=== PATIENT | male | born 1965 | race Caucasian/White ===

== ENCOUNTER 2023-09-20 01:32 | Emergency (ER) | payer MEDICAID, SELFPAY ==
--- NOTE | ~2023-09-20 | US_ITS ---
EXAMINATION: US VENOUS ULTRASOUND WITH DOPPLER LOWER EXTREMITY, LEFT CLINICAL INFORMATION: Leg pain COMPARISON: None available. TECHNIQUE: Ultrasound of the deep veins is performed from the hip to the calf with compression sonography and color and pulse Doppler assessment. Spectral analysis with color-flow imaging is performed. FINDINGS: There is normal venous compression and respiratory variation and augmented flow. The visualized common femoral vein, superficial femoral vein, profunda femoral vein, popliteal vein, and the trifurcation region shows no evidence of deep venous thrombosis. There is no significant popliteal fossa cyst. If the patient's symptoms persist, followup ultrasound in 5 days 7 days might be of value to exclude proximal propagation from a non-visualized calf vein. US/US venous duplex LE LT IMPRESSION: No DVT demonstrated in the left lower extremity. Note is made of prominent nodes of uncertain etiology.
--- NOTE | ~2023-09-20 | XR_ITS ---
Indication: Pain EXAMINATION: Left knee, left ankle. 3 views of the left knee demonstrate soft tissue swelling. Periosteal changes along the distal tibia and fibula are noted No acute fracture or dislocation is seen. Degenerative changes are noted. 2 images of the left knee do not demonstrate acute fracture or dislocation. Surgical clips posterior to the distal femur. No significant effusion is seen. Some degenerative changes are noted. XR/XR ankle LT min 3V IMPRESSION: No acute bony finding the left ankle or left knee. Note is made of some periosteal changes along the visualized distal tibia and fibula of uncertain etiology. Correlation recommended clinically. This could reflect venous stasis. Underlying bony infection chronic could not be excluded
--- NOTE | ~2023-09-20 | XR_ITS ---
Indication: Pain EXAMINATION: Left knee, left ankle. 3 views of the left knee demonstrate soft tissue swelling. Periosteal changes along the distal tibia and fibula are noted No acute fracture or dislocation is seen. Degenerative changes are noted. 2 images of the left knee do not demonstrate acute fracture or dislocation. Surgical clips posterior to the distal femur. No significant effusion is seen. Some degenerative changes are noted. XR/XR knee LT 2V IMPRESSION: No acute bony finding the left ankle or left knee. Note is made of some periosteal changes along the visualized distal tibia and fibula of uncertain etiology. Correlation recommended clinically. This could reflect venous stasis. Underlying bony infection chronic could not be excluded
[2023-09-20 01:36] VITALS: BP 160/87; BP 180/90; PULSE 67; PULSE 78; RESP 20; TEMP 36.7; O2SAT 95; BMI 30.3
[2023-09-20 01:48] VITALS: BP 160/87; PULSE 68; RESP 18; TEMP 36.7; O2SAT 93
[2023-09-20 02:32] LABS: MANUAL DIFF FLAG NO
[2023-09-20 02:34] LABS: Basophils Absolute Auto 0.1 X10*3/uL (0.0-0.2); Basophils Percent Auto 0.7 % (0-2); Eosinophils Absolute Auto 0.1 X10*3/uL (0.0-0.4); Eosinophils Percent Auto 0.8 % (0-4); Hematocrit 41.4 % (42.0-52.0); Hemoglobin 13.8 g/dl (14.0-18.0); Imm Gran Abs Auto 0.03 X10*3/uL (0.00-0.03); Imm Gran Pct Auto 0.3 % (0.0-0.4); Lymphocytes Percent Auto 19.7 % (20-40); Mean Corpuscular HGB Conc 33.3 g/dl (31.0-36.0); Mean Corpuscular Hemoglobin 30.5 pg (27.0-33.0); Mean Corpuscular Volume 91.6 fL (80.0-98.0); Mean Platelet Volume 9.5 fL (9.4-12.4); Monocytes Absolute Auto 1.1 X10*3/uL (0.1-1.2); Monocytes Percent Auto 10.3 % (2-11); Neutrophils Absolute Auto 6.9 x10*3/uL (2.0-8.3); Neutrophils Percent Auto 68.2 % (45-73); Platelet Count 364 X10*3/uL (160-400); Red Blood Count 4.52 X10*6/uL (4.60-5.80); Red Cell Distribution Width 13.9 % (11.0-16.0); White Blood Count 10.2 X10*3/uL (4.8-10.8)
[2023-09-20 02:49] LABS: Alanine Aminotransferase 12 U/L (0-40); Albumin Level 3.5 g/dL (3.5-5.0); Alkaline Phosphatase 99 U/L (39-117); Anion Gap 14 (12-20); Aspartate Amino Transferase 18 U/L (5-37); Bilirubin Total 0.3 mg/dL (0.0-1.0); Blood Urea Nitrogen 17 mg/dL (9-16); Calcium 9.5 mg/dL (8.4-10.2); Carbon Dioxide 25 mmol/L (22-29); Chloride 105 mmol/L (96-108); Creatinine Clr Calc Pharmacy 111.9; Estimated Glomerular Filt Rate > 60; Glucose Random 88 mg/dL (60-115); Potassium 4.1 mmol/L (3.3-5.1); Sodium 140 mmol/L (135-145); Total Protein 8.4 g/dL (6.5-8.0)
[2023-09-20 04:00] VITALS: BP 165/95; PULSE 64; RESP 20; TEMP 36.8; O2SAT 96
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
[2023-09-20 05:38] LABS: Amphetamine Screen Urine Not Detected (Not Detect); Barbiturates, Urine Not Detected (Not Detect); Benzodiazepines Screen Urine Not Detected (Not Detect); Buprenorphine Scr Not Detected (Not Detect); Cannabinoid Screen Urine Not Detected (Not Detect); Cocaine Screen Urine POSITIVE (Not Detect); Fentanyl, urine POSITIVE (Not Detect); Methadone Screen, Urine Positive (Not Detect); Opiate Screen Urine Not Detected (Not Detect); Oxycodone Screen Urine Not Detected (Not Detect); Phencyclidine Screen Urine Not Detected (Not Detect)
--- NOTE | 2023-09-20 05:47 | PC.NURSE ---
wound cleansed and bandaged with non-adherent telfa, abd pad, and kerlix.
[2023-09-20 06:00] VITALS: BP 166/88; PULSE 66; RESP 12; TEMP 36.3; O2SAT 95
--- NOTE | 2023-09-20 08:30 | HE.PHANOTE ---
METHADONE Dose: 90 mg, last dosed on 09/19/2023 @0842 per Chantal WARRNE at [facility].
[2023-09-20] MEDS: methADONE HCl 20 MG/2 ML ORAL.CONC 90 MG PO (08:37)
[2023-09-20 08:42] VITALS: BP 168/92; PULSE 69; RESP 22; TEMP 36.7; O2SAT 95
== END 2023-09-20 08:44 | disposition home or self-care (01) ==
PROVIDERS: Emergency Provider Emergency Medicine Emergency Medical Services
DX: L08.89 Other specified local infections of the skin and subcutaneous tissue (principal); M25.562 Pain in left knee; R60.0 Localized edema; M25.572 Pain in left ankle and joints of left foot; Z79.899 Other long term (current) drug therapy
CPT/HCPCS: 36415; 73560; 73610; 80053; 80307; 85025; 85610; 93971; 96365; 96375; 99284; J0690

== ENCOUNTER 2024-06-04 16:19 | Inpatient (IN) | payer MEDICAID, SELFPAY ==
[2024-06-04] VITALS (7 sets, daily range): BP systolic 136–151; BP diastolic 70–95; PULSE 59–97; RESP 16–19; TEMP 36.4–36.8; O2SAT 92–99; BMI 36.9
--- NOTE | ~2024-06-04 | XR_ITS ---
CLINICAL HISTORY: wound 2 view left tibia-fibula Comparison: None Findings There is periosteal new bone formation within the diaphysis of the fibula extending over at least 16 cm of the length of the fibula. This may be subacute or chronic. Cortical thickening and irregularity of a portion of the anterior aspect of the tibia. No brigette bony destruction. No acute fracture. No dislocation. No joint effusion. No significant arthritic change. No radiopaque foreign body. There is edema of the soft tissues. Possible focus of soft tissue ulceration within the anterior aspect of the lower leg. IMPRESSION: Findings suggest osteomyelitis of the diaphysis of the tibia and fibula. This could be further evaluated with MRI. This document has been electronically signed by: Priya Gonzales MD on 06/04/2024 18:46:38
--- NOTE | ~2024-06-04 | US_ITS ---
CLINICAL HISTORY: calf pain Venous duplex ultrasound left lower extremity Comparison: US/SR - US VENOUS DUPLEX LE LT - 09/20/23 05:22 EDT Findings: The visualized deep veins are fully compressible with normal Doppler color flow and spectral tracings. No popliteal cyst. There is a 4.5 x 2.9 x 1.6 cm normal morphology lymph node containing a fatty hilum within the left groin with likely increased since the prior study. IMPRESSION: 1. Negative for left lower extremity deep vein thrombosis. 2. Enlarged left groin lymph node with apparent interval increase in size. This may be inflammatory but neoplasm is not excluded. This document has been electronically signed by: Priya Gonzales MD on 06/04/2024 19:32:59
--- NOTE | ~2024-06-04 | MR_ITS ---
EXAMINATION: MR TIBIA AND FIBULA WITHOUT THEN WITH IV CONTRAST LEFT HISTORY: ?osteomyelitis. TECHNIQUE: Sagittal and coronal T1 and STIR, and axial T1 and fat-suppressed T2-weighted MR images of the left calf were obtained. Subsequently, axial fat-suppressed T1-weighted images were obtained before and after the intravenous administration of 10 mL Gadavist. COMPARISON: Correlation is made with plain films of the left tibia and fibula dated 06/04/2024. FINDINGS: There is diffuse subcutaneous edema at the anterior and lateral aspects of the calf, compatible with cellulitis. There is diffuse fatty muscle atrophy. Bone marrow signal intensity is normal. There is cortical thickening of the diaphysis of the tibia. There is no osseous destruction. There is no fluid collection. MR/MR Tibia LT wo/w Contrast IMPRESSION: Findings consistent with cellulitis. No evidence of osteomyelitis. Electronically signed by: Stanley Desir MD 06/05/2024 01:13 PM EDT
--- NOTE | ~2024-06-04 | CT_ITS ---
CLINICAL HISTORY: SOB, hx of DVT CT angiography chest with contrast. 3D Postprocessing. Comparison: None Findings: The heart size is normal. RV/LV ratio is normal. Unremarkable thoracic aorta and great vessels. No aneurysm. No pulmonary artery filling defects. The visualized thyroid and mediastinum are unremarkable. There are mild emphysematous changes. No consolidation or pleural effusion. The upper abdomen is unremarkable. No acute fractures. IMPRESSION: There is no pulmonary artery embolism. This document has been electronically signed by: Priya Gonzales MD on 06/04/2024 18:52:17
--- NOTE | ~2024-06-04 | MR_ITS ---
EXAMINATION: MR PELVIS WITHOUT AND WITH CONTRAST CLINICAL INFORMATION: Enlarged lymph nodes. Concerning neoplasm. COMPARISON: None available. TECHNIQUE: Multiplanar, multisequence MRI pelvis/left hip without and following the IV contrast. Total of 10 cc gadolinium based (Gadavist) without reported immediate complications. FINDINGS: Patient's motion. Abundant stool within the rectosigmoid colon. No ascites in the lower pelvic peritoneal cavity. The prostate gland is not enlarged and measures no more than 3 cm in the craniocaudal dimension. Fluid-filled bladder. Mildly prominent, less than 12 mm lymph nodes in the left iliac and left greater than right inguinal regions. The vessels are patent. No bone marrow signal abnormality in the bony pelvis or the coxofemoral joints. No enhancing lesion within the coxofemoral joints or the bony pelvis. Bone marrow inhomogeneity with predominantly fat signal characteristic pattern. MR/MR pelvis wo/w con IMPRESSION: Nonspecific lymphadenopathy, left greater than right inguinal region and left perinephric iliac. Abundant stool, rectosigmoid colon. No enhancing mass. Electronically signed by: Stiven Candelaria MD 06/06/2024 02:18 PM EDT
[2024-06-04 17:32] LABS: MANUAL DIFF FLAG NO
[2024-06-04 17:33] LABS: Basophils Percent Auto 0.4 % (0-2); Eosinophils Percent Auto 1.1 % (0-4); Hematocrit 44.6 % (42.0-52.0); Imm Gran Pct Auto 0.3 % (0.0-0.4); Lymphocytes Percent Auto 15.5 % (20-40); Mean Corpuscular HGB Conc 33.6 g/dl (31.0-36.0); Mean Corpuscular Hemoglobin 31.1 pg (27.0-33.0); Mean Corpuscular Volume 92.3 fL (80.0-98.0); Mean Platelet Volume 9.3 fL (9.4-12.4); Monocytes Percent Auto 8.4 % (2-11); Neutrophils Percent Auto 74.3 % (45-73); Platelet Count 351 X10*3/uL (160-400); Red Blood Count 4.83 X10*6/uL (4.60-5.80); Red Cell Distribution Width 14.4 % (11.0-16.0); White Blood Count 9.2 X10*3/uL (4.8-10.8)
[2024-06-04 17:34] LABS: Eosinophils Absolute Auto 0.1 X10*3/uL (0.0-0.4); Imm Gran Abs Auto 0.03 X10*3/uL (0.00-0.03); Lymphocytes Absolute Auto 1.4 X10*3/uL (1.2-4.9); Monocytes Absolute Auto 0.8 X10*3/uL (0.1-1.2); Neutrophils Absolute Auto 6.8 x10*3/uL (2.0-8.3)
[2024-06-04 17:50] LABS: Ethanol 35 mg/dL
[2024-06-04 17:52] LABS: Alanine Aminotransferase 18 U/L (0-40); Albumin Level 3.7 g/dL (3.5-5.0); Alkaline Phosphatase 104 U/L (39-117); Anion Gap 13 (12-20); Aspartate Amino Transferase 30 U/L (5-37); Bilirubin Direct < 0.2 mg/dL (0.0-0.5); Bilirubin Total 0.2 mg/dL (0.0-1.0); Blood Urea Nitrogen 23 mg/dL (9-16); Calcium 9.5 mg/dL (8.4-10.2); Carbon Dioxide 28 mmol/L (22-29); Chloride 104 mmol/L (96-108); Creatinine Clr Calc Pharmacy 128.1; Estimated Glomerular Filt Rate > 60; Glucose Random 83 mg/dL (60-115); Magnesium 2.2 mg/dL (1.6-2.6); Potassium 4.5 mmol/L (3.3-5.1); Sodium 140 mmol/L (135-145); Total Protein 9.1 g/dL (6.5-8.0)
[2024-06-04 17:53] LABS: Lactic Acid 1.3 mmol/L (0.5-2.0)
[2024-06-04 17:55] LABS: Acetaminophen LAB < 3 mcg/mL (<30); Salicylate < 5.0 mg/dL (15-30)
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
--- NOTE | 2024-06-04 17:58 | ECG_ITS ---
Test Reason : SOB Blood Pressure : */* mmHG Vent. Rate : 67 BPM Atrial Rate : 67 BPM P-R Int : 144 ms QRS Dur : 102 ms QT Int : 404 ms P-R-T Axes : 63 19 95 degrees QTcB Int : 426 ms Normal sinus rhythm Abnormal QRS-T angle, consider primary T wave abnormality Abnormal ECG No previous ECGs available Referred By: Lashay Cunningham Electronically Signed By: KANWAL VELÁSQUEZ MD
[2024-06-04 18:01] LABS: Appearance Urine Clear; Color Urine Yellow; Glucose Urine UA Negative (Negative); Leukocyte Esterase Urine Negative (Negative); Nitrite Urine Negative (Negative); PH 5.5 (5.0-9.0); UMIC TRIGGER UACC YES; Urine Blood Negative (Negative); Urine Ketones Negative (Negative); Urine Protein 100 (2+) mg/dL (Neg-Trace)
[2024-06-04 18:09] LABS: Bacteria Urine None Seen (None Seen); Hyaline Casts Urine 0-2 /LPF (0-2); RBC Urine 0-2 /HPF (0-2); Squamous Epithelial Cell Urine 0-2 /HPF (0-2); WBC Urine 0-5 /HPF (0-5)
[2024-06-04 18:10] LABS: Amphetamine Screen Urine Not Detected (Not Detect); Barbiturates, Urine Not Detected (Not Detect); Benzodiazepines Screen Urine Not Detected (Not Detect); Buprenorphine Scr Not Detected (Not Detect); Cannabinoid Screen Urine Not Detected (Not Detect); Cocaine Screen Urine POSITIVE (Not Detect); Fentanyl, urine POSITIVE (Not Detect); Methadone Screen, Urine Positive (Not Detect); Opiate Screen Urine Not Detected (Not Detect); Oxycodone Screen Urine Not Detected (Not Detect); Phencyclidine Screen Urine Not Detected (Not Detect)
[2024-06-04] MEDS: Piperacillin Sodium/Tazobactam 3.375 GM in 0.9 % Sodium Chloride 50 ML IV (18:10)
[2024-06-04] MEDS: 0.9 % Sodium Chloride 2,121 ML 2121 ML IV (18:11)
[2024-06-04 18:21] LABS: Troponin-I High Sensitivity 3.4 ng/L (<3.5-35.0)
[2024-06-04] MEDS: iohexoL 350 MG/ML 100 ML INFUS..BTL IV (18:21)
--- NOTE | 2024-06-04 18:27 | PC.NURSE ---
Pt reports taking Methadone 95mg daily. Called [facility] and spoke with the general warehouse associate who will call back to verify the dose.
[2024-06-04 18:28] LABS: B Type Natriuretic Peptide 34 pg/mL (<100)
[2024-06-04] MEDS: PHENobarbitaL sodium 130 MG/ML IM ONCE 283 MG IM (18:50)
[2024-06-04 19:04] LABS: C Reactive Protein 1.85 mg/dL (< or = 0.50)
--- OUTSIDE RECORDS SUMMARY | 2024-06-04 19:04 | XMS_ITS | Clinical Summary ---
Author Organization [email or web address] Address [address] [facility] [address] [place] [address] Care Team Providers Care Correctional Therapy Director Name Role Phone Unavailable Primary Care Provider Unavailabl e Encounters Date Type Department Care Team Description 05/03/2024 Population Health Risk Score [facility] (C3) Department [address] [facility] [address] [place] [id number] Provider, Population Health Generic from Last 3 Months Social History Tobacco Use Types Packs/Day Years Used Date Smoking Tobacco: Never Assessed Sex and Gender Information Value Date Recorded Sex Assigned at Not on file Legal Sex Male 1:45 PM EST Gender Identity Not on file Sexual Orientation Not on file Plan of Treatment Health Maintenance Due Date Last Done Comments CT Colonography 1966 Colonoscopy 1966 Colorectal Cancer Screening 1966 Depression Screening 1966 FIT DNA/Cologuard 1966 FIT 1966 FOBT 1966 HIV Screening 1966 Lipid Panel 1966 SDOH Screening 1966 Sigmoidoscopy 1966 Alcohol/Substance Use Screening 1978 Tobacco Screening 1978 Hepatitis C Screening 1984 DTaP/Tdap/Td Vaccines (1 - Tdap) 1985 Hepatitis B Vaccines (1 of 3 - 19+ 3-dose series) 1985 Pneumococcal Vaccine: 50+ Ye ars (1 of 1 - PCV) 2016 Zoster Vaccines (1 of 2) 2016 COVID-19 Vaccine (2023-2 5 season) 2023 Influenza Vaccine (#1) 2023 RSV Patients and Pa tients Aged 60 years or older (1 - 1-dose 75+ series) 2041 HIB Vaccines Aged Out No longer eligi ble based on patient's age to complete this topic HPV Vaccines Aged Out No longer eligi ble based on patient's age to complete this topic Hepatitis A Vaccines Aged Out No long er eligible based on patient's age to complete this topic IPV Vaccines Aged Out No longer eligi ble based on patient's age to complete this topic Meningococcal Vaccine Aged Out No sai alex eligible based on patient's age to complete this topic Pneumococcal Vaccine: Pediat rics (0 to 5 Years) and At-Risk Patients (6 to 49) Years) Aged Out No longer eligible b ased on patient's age to complete this topic RSV under 20 months Aged Out No longe r eligible based on patient's age to complete this topic Rotavirus Vaccines Aged Out No longer eligible based on patient's age to complete this topic
--- OUTSIDE RECORDS SUMMARY | 2024-06-04 19:04 | XMS_ITS | Clinical Summary ---
Author Organization [facility] Facility Address [address] [place] [id number] Care Team Providers Care Facility Assistant Name Role Phone Unavailable Primary Care Provider Unavailabl e Social History Tobacco Use Types Packs/Day Years Used Date Smoking Tobacco: Never Assessed Sex and Gender Information Value Date Recorded Sex Assigned at Not on file Legal Sex Male 12:03 PM EST Gender Identity Not on file Sexual Orientation Not on file Plan of Treatment Health Maintenance Due Date Last Done Comments Hepatitis B Vaccine (1 of 3 - 19+ 3-dose series) 1985 Colorectal Cancer Screening: Annual FOBT 2015 Colorectal Cancer Screening: Colonoscopy 2015 Colorectal Cancer Screening: Sigmoidoscopy 2015 Influenza Vaccine (Season Ended) 2024 Pneumococcal Vaccine: Peds ( 0 to 5 Years) and At-Risk Patients (6 to 49 Years) Aged Out No longer eligible b ased on patient's age to complete this topic [place]
[2024-06-04] MEDS: vancomycin/NS 2,000 MG/500 ML PLAST..BAG 250 MG IV (19:20)
[2024-06-04 19:21] LABS: Lactic Acid 1.3 mmol/L (0.5-2.0)
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
[2024-06-04 19:42] LABS: Influenza A PCR NEGATIVE (Negative); Influenza B PCR NEGATIVE (Negative); Resp Syncy Virus RNA Qual PCR NEGATIVE (Negative); SARS COV2 PCR INHOUSE NEGATIVE (Negative)
--- NOTE | 2024-06-04 19:58 | PHA.MEDREC ---
Addendum entered by Carlos Nichole [facility] 06/04/24 20:05: med rec reviewed Original Note: Pharmacy Consult ? Medication Reconciliation Pharmacy has completed the medication reconciliation. Patient states he only takes Methadone 95 mg daily, last dose 06/03/24 from [facility].
[2024-06-04] MEDS: Enoxaparin Sodium 40 MG/0.4 ML SYRINGE SUBCUT (20:08)
[2024-06-04] MEDS: Thiamine HCL 200 MG in 0.9 % Sodium Chloride 100 ML 204 MG IV (20:08)
[2024-06-04 20:26] LABS: Erythrocyte Sedimentation Rate 32 MM/HR (0-15)
[2024-06-04] MEDS: Albuterol/Iprat 2.5/0.5MG 3 ML AMPUL.NEB INHALE (20:28)
[2024-06-04] MEDS: Nicotine 14 MG PATCH.TD24 TRANSDERMA (20:49)
[2024-06-04] MEDS: predniSONE 20 MG TABLET 40 MG PO (20:50)
[2024-06-04 21:04] LABS: Troponin-I High Sensitivity 4.6 ng/L (<3.5-35.0)
[2024-06-04] MEDS: Azithromycin 500 MG in 0.9 % Sodium Chloride 250 ML 125 MG IV (21:29)
[2024-06-04] MEDS: Lactated Ringers 1,000 ML 999 ML IV (21:29)
[2024-06-04] MEDS: PHENobarbitaL sodium 130 MG/ML VIAL IM Q3Hx2 212 MG IM (21:37)
[2024-06-05] VITALS (10 sets, daily range): BP systolic 129–166; BP diastolic 65–88; PULSE 58–86; RESP 16–19; TEMP 36–36.9; O2SAT 94–98
--- NOTE | 2024-06-05 00:12 | PC.NURSE ---
LLE wound cleaned and dry dressing applied. Pt tolerated well.
--- NOTE | 2024-06-05 00:12 | PC.NURSE ---
Nani from [facility] called back and is unable to confirm last dose of Methadone as their clinic will not re-open until 5am. MARQUITA made aware.
[2024-06-05] MEDS: 0.9 % Sodium Chloride Flush 3 ML SYRINGE IVFLUSH ×4 (00:25→20:33)
[2024-06-05] MEDS: PHENobarbitaL sodium 130 MG/ML VIAL IM Q3Hx2 212 MG IM (00:25)
[2024-06-05] MEDS: Piperacillin Sodium/Tazobactam 4.5 GM in 0.9 % Sodium Chloride 100 ML IV ×4 (01:21→17:58)
[2024-06-05 06:45] LABS: MANUAL DIFF FLAG NO
[2024-06-05 07:01] LABS: Basophils Percent Auto 0.3 % (0-2); Hematocrit 39.3 % (42.0-52.0); Hemoglobin 12.9 g/dl (14.0-18.0); Imm Gran Abs Auto 0.02 X10*3/uL (0.00-0.03); Imm Gran Pct Auto 0.3 % (0.0-0.4); Lymphocytes Absolute Auto 0.6 X10*3/uL (1.2-4.9); Mean Corpuscular HGB Conc 32.8 g/dl (31.0-36.0); Mean Corpuscular Hemoglobin 30.8 pg (27.0-33.0); Mean Corpuscular Volume 93.8 fL (80.0-98.0); Mean Platelet Volume 9.9 fL (9.4-12.4); Monocytes Absolute Auto 0.5 X10*3/uL (0.1-1.2); Monocytes Percent Auto 7.6 % (2-11); Neutrophils Absolute Auto 5.7 x10*3/uL (2.0-8.3); Neutrophils Percent Auto 82.8 % (45-73); Platelet Count 305 X10*3/uL (160-400); Red Blood Count 4.19 X10*6/uL (4.60-5.80); Red Cell Distribution Width 14.6 % (11.0-16.0); White Blood Count 6.9 X10*3/uL (4.8-10.8)
[2024-06-05 07:04] LABS: Creatinine Clr Calc Pharmacy 138.8; Estimated Glomerular Filt Rate > 60
[2024-06-05 07:09] LABS: Anion Gap 10 (12-20); Blood Urea Nitrogen 18 mg/dL (9-16); Carbon Dioxide 23 mmol/L (22-29); Chloride 105 mmol/L (96-108); Creatinine Clr Calc Pharmacy 136.9; Estimated Glomerular Filt Rate > 60; Glucose Random 163 mg/dL (60-115); Potassium 4.4 mmol/L (3.3-5.1); Sodium 134 mmol/L (135-145)
[2024-06-05 07:24] LABS: Calcium 8.3 mg/dL (8.4-10.2)
[2024-06-05] MEDS: Albuterol/Iprat 2.5/0.5MG 3 ML AMPUL.NEB INHALE ×4 (07:41→19:30)
[2024-06-05] MEDS: vancomycin HCL 1,500 MG in 0.9 % Sodium Chloride 500 ML 333.33 MG IV ×2 (08:32→20:32)
[2024-06-05] MEDS: predniSONE 20 MG TABLET 40 MG PO (08:33)
[2024-06-05] MEDS: PHENobarbitaL 15 MG TABLET 45 MG PO ×2 (08:33→20:32)
[2024-06-05] MEDS: Nicotine 14 MG PATCH.TD24 TRANSDERMA (08:33)
[2024-06-05] MEDS: Thiamine HCL 100 MG TABLET PO (08:33)
--- NOTE | 2024-06-05 08:53 | HE.PHANOTE ---
METHADONE Dose: 95mg, last dosed 06/03/24 @0929 per [facility] with 6 take home doses.
[2024-06-05] MEDS: methADONE HCl 20 MG/2 ML ORAL.CONC 95 MG PO (09:43)
--- NOTE | 2024-06-05 12:30 | MHC.CM.PN ---
Patient lives in an apartment alone. Functionally independent. Denies use of services or DME. Methadone at [facility]. No PCP. [facility] brochure provided. Reports he has an HCP listing his sister, Nidhi, as HCA. Copy requested. Patient was arrested last night and is currently in custody of [facility]'s Dept awaiting arraignment, scheduled for 06/06 per [facility]. C.O. at bedside. DP: ? osteo, MRI pending, ? need for IV abx. Awaiting call back from [facility] - attempting to move arraignment to Zoom platform in order to facilitate dc. CM director aware. If patient remains in custody and needs IV abx - coordinate with medical dept @ [facility] ([place] - [phone]) and [facility].
[2024-06-05] MEDS: gadobutroL 10 ML VIAL IVPUSH (12:54)
--- NOTE | 2024-06-05 13:31 | HO.PM.IMPN ---
Subjective Subjective Date of Service: 06/05/24 Interval History: LLE skin wound drainage/pain no fever Review of Systems Review of Systems: Yes all other systems are reviewed and are negative Physical Exam Vital Signs: Vital Signs: Last Vital Signs Temp 98 F 06/05/24 06:54 Pulse 86 06/05/24 11:18 Resp 16 06/05/24 11:18 BP 147/78 H 06/05/24 06:54 Pulse Ox 94 06/05/24 06:54 O2 Del Method Room Air 06/05/24 06:54 BMI result Body Mass Index 36.9 Gen: in no acute distress HEENT: sclera anicteric, moist mucus membranes Neck: supple Lungs: clear to auscultation bilaterally Heart: regular rate and rhythm, no murmurs Abd: soft, non-tender, non-distended Ext: no edema Skin: warm/well-perfused, L [place] with large anterior purulent wound Neuro: alert and oriented x3, no focal findings Psych: appropriate affect Objective Data Active Medications Acetaminophen (Acetaminophen 325 Mg Tablet) 650 mg PO Q6H PRN PRN Reason: Pain, Mild 1-3,fever,headache Albuterol/Ipratropium (Albuterol/Iprat 2.5/0.5mg 3 Ml Ampul.Neb) 3 ml INHALE RQ4H WHILE AWAKE [facility] Last Admin: 06/05/24 11:18 Dose: 3 ml Documented By: MARY JANE Albuterol/Ipratropium (Albuterol/Iprat 2.5/0.5mg 3 Ml Ampul.Neb) 3 ml INHALE Q4H PRN PRN Reason: Wheezing Calcium Carbonate (Calcium Carbonate 750 Mg Tab.Chew) 750 mg PO Q4H PRN PRN Reason: Heartburn Enoxaparin Sodium (Enoxaparin Sodium 40 Mg/0.4 Ml Syringe) 40 mg SUBCUT Q24H [facility] Last Admin: 06/04/24 20:08 Dose: 40 mg Documented By: PJ Piperacillin Sod/Tazobactam (Sod 4.5 gm/ Sodium Chloride) 100 mls @ 200 mls/hr IV Q6H [facility] Last Infusion: 06/05/24 07:37 Dose: Infused Documented By: RASHID Vancomycin HCl 1,500 mg/ (Sodium Chloride) 500 mls @ 333.333 mls/hr IV Q12H [facility] Last Infusion: 06/05/24 10:33 Dose: Infused Documented By: RASHID Azithromycin 500 mg/ Sodium (Chloride) 250 mls @ 125 mls/hr IV Q24H [facility] Last Infusion: 06/04/24 23:51 Dose: Infused Documented By: PJ Magnesium Hydroxide (Milk Of Magnesia 30 Ml Oral.Susp) 30 ml PO DAILY PRN PRN Reason: Constipation Melatonin (Melatonin 3 Mg Tablet) 6 mg PO BEDTIME PRN PRN Reason: Insomnia Methadone HCl (Methadone Hcl 20 Mg/2 Ml Oral.Conc) 95 mg PO DAILY@0800 [facility] Last Admin: 06/05/24 09:43 Dose: 95 mg Documented By: RASHID Co-signed By: NICOLLE Nicotine (Nicotine 14 Mg Patch.Td24) 14 mg TRANSDERMA DAILY [facility] Last Admin: 06/05/24 08:33 Dose: 14 mg Documented By: RASHID Ondansetron HCl (Ondansetron Hcl 4 Mg/2 Ml Vial) 4 mg IVPUSH Q8H PRN PRN Reason: Nausea and Vomiting Pharmacy Consult (Consult Rx Etoh Phenob Im/Po) 1 each MISCELLANE ONCE PRN; Protocol PRN Reason: Consult order Pharmacy Consult (Consult Rx Vancomycin Dosing) 1 each MISCELLANE DAILY PRN PRN Reason: Consult order Phenobarbital (Phenobarbital 15 Mg Tablet) 45 mg PO BID [facility] Stop: 06/06/24 21:01 Last Admin: 06/05/24 08:33 Dose: 45 mg Documented By: RASHID Phenobarbital (Phenobarbital 30 Mg Tablet) 30 mg PO BID [facility] Stop: 06/08/24 21:01 Phenobarbital (Phenobarbital 30 Mg Tablet) 30 mg PO DAILY [facility] Stop: 06/10/24 09:01 Prednisone (Prednisone 20 Mg Tablet) 40 mg PO DAILY [facility] Last Admin: 06/05/24 08:33 Dose: 40 mg Documented By: RASHID Sodium Chloride (0.9 % Sodium Chloride Flush 3 Ml Syringe) 3 ml IVFLUSH QSHIFT [facility] Last Admin: 06/05/24 08:40 Dose: 3 ml Documented By: RASHID Thiamine HCl (Thiamine Hcl 100 Mg Tablet) 100 mg PO DAILY [facility] Last Admin: 06/05/24 08:33 Dose: 100 mg Documented By: RASHID Labs 06/05/24 06:29 06/05/24 06:29 Labs: Laboratory Results - last 24 hr 06/04/24 06/04/24 06/04/24 17:24 17:27 17:28 MCV 92.3 MCH 31.1 MCHC 33.6 RDW 14.4 Plt Count 351 MPV 9.3 L Immature Gran % (Auto) 0.3 Neut % (Auto) 74.3 H Lymph % (Auto) 15.5 L [place] % (Auto) 8.4 Eos % (Auto) 1.1 Baso % (Auto) 0.4 Lymph # (Auto) 1.4 [place] # (Auto) 0.8 Eos # (Auto) 0.1 Baso # (Auto) 0.0 Abs Immat Gran (auto) 0.03 Absolute Neuts (auto) 6.8 Absolute Nucleated RBC 0.000 Nucleated RBC % (auto) 0.0 ESR Anion Gap 13 Estim Creat Clear Calc 128.1 Estimated GFR > 60 Random Glucose 83 Lactic Acid 1.3 Calcium 9.5 Magnesium 2.2 Total Bilirubin 0.2 Direct Bilirubin < 0.2 AST 30 ALT 18 Alkaline Phosphatase 104 C-Reactive Protein 1.85 H B-Natriuretic Peptide 34 Total Protein 9.1 H Albumin 3.7 Urine Color Urine Appearance Urine pH Ur Specific [place] Urine Protein Urine Glucose (UA) Urine Ketones Urine Blood Urine Nitrite Ur Leukocyte Esterase Urine RBC Urine WBC Ur Squamous Epith Cells Urine Bacteria Hyaline Casts Salicylates < 5.0 L Urine Opiates Screen Ur Buprenorphine Scrn Ur Oxycodone Screen Urine Methadone Screen Urine Fentanyl Screen Acetaminophen < 3 Ur Barbiturates Screen Ur Phencyclidine Scrn Ur Amphetamines Screen U Benzodiazepines Scrn Urine Cocaine Screen U Marijuana (THC) Screen Ethyl Alcohol 35 Influenza Type A (PCR) Influenza Type B (PCR) RSV RNA Qual (PCR) SARS-CoV-2 RNA (RT-PCR) 06/04/24 06/04/24 06/04/24 17:45 19:01 19:42 MCV MCH MCHC RDW Plt Count MPV Immature Gran % (Auto) Neut % (Auto) Lymph % (Auto) [place] % (Auto) Eos % (Auto) Baso % (Auto) Lymph # (Auto) [place] # (Auto) Eos # (Auto) Baso # (Auto) Abs Immat Gran (auto) Absolute Neuts (auto) Absolute Nucleated RBC Nucleated RBC % (auto) ESR 32 H Anion Gap Estim Creat Clear Calc Estimated GFR Random Glucose Lactic Acid 1.3 Calcium Magnesium Total Bilirubin Direct Bilirubin AST ALT Alkaline Phosphatase C-Reactive Protein B-Natriuretic Peptide Total Protein Albumin Urine Color Yellow Urine Appearance Clear Urine pH 5.5 Ur Specific [place] 1.020 Urine Protein 100 (2+) H Urine Glucose (UA) Negative Urine Ketones Negative Urine Blood Negative Urine Nitrite Negative Ur Leukocyte Esterase Negative Urine RBC 0-2 Urine WBC 0-5 Ur Squamous Epith Cells 0-2 Urine Bacteria None Seen Hyaline Casts 0-2 Salicylates Urine Opiates Screen Not Detected Ur Buprenorphine Scrn Not Detected Ur Oxycodone Screen Not Detected Urine Methadone Screen Positive H Urine Fentanyl Screen POSITIVE H Acetaminophen Ur Barbiturates Screen Not Detected Ur Phencyclidine Scrn Not Detected Ur Amphetamines Screen Not Detected U Benzodiazepines Scrn Not Detected Urine Cocaine Screen POSITIVE H U Marijuana (THC) Screen Not Detected Ethyl Alcohol Influenza Type A (PCR) NEGATIVE Influenza Type B (PCR) NEGATIVE RSV RNA Qual (PCR) NEGATIVE SARS-CoV-2 RNA (RT-PCR) NEGATIVE 06/05/24 06/05/24 06/05/24 06:29 06:29 06:29 MCV 93.8 MCH 30.8 MCHC 32.8 RDW 14.6 Plt Count 305 MPV 9.9 Immature Gran % (Auto) 0.3 Neut % (Auto) 82.8 H Lymph % (Auto) 9.0 L [place] % (Auto) 7.6 Eos % (Auto) 0.0 Baso % (Auto) 0.3 Lymph # (Auto) 0.6 L [place] # (Auto) 0.5 Eos # (Auto) 0.0 Baso # (Auto) 0.0 Abs Immat Gran (auto) 0.02 Absolute Neuts (auto) 5.7 Absolute Nucleated RBC 0.000 Nucleated RBC % (auto) 0.0 ESR Anion Gap 10 L Estim Creat Clear Calc 138.8 136.9 Estimated GFR > 60 > 60 Random Glucose 163 H Lactic Acid Calcium 8.3 L D Magnesium Total Bilirubin Direct Bilirubin AST ALT Alkaline Phosphatase C-Reactive Protein B-Natriuretic Peptide Total Protein Albumin Urine Color Urine Appearance Urine pH Ur Specific [place] Urine Protein Urine Glucose (UA) Urine Ketones Urine Blood Urine Nitrite Ur Leukocyte Esterase Urine RBC Urine WBC Ur Squamous Epith Cells Urine Bacteria Hyaline Casts Salicylates Urine Opiates Screen Ur Buprenorphine Scrn Ur Oxycodone Screen Urine Methadone Screen Urine Fentanyl Screen Acetaminophen Ur Barbiturates Screen Ur Phencyclidine Scrn Ur Amphetamines Screen U Benzodiazepines Scrn Urine Cocaine Screen U Marijuana (THC) Screen Ethyl Alcohol Influenza Type A (PCR) Influenza Type B (PCR) RSV RNA Qual (PCR) SARS-CoV-2 RNA (RT-PCR) Impressions Tibia/Fibula MRI 06/05/24 12:10 IMPRESSION: Findings consistent with cellulitis. No evidence of osteomyelitis. Electronically signed by: Stanley Desir MD 06/05/2024 01:13 PM EDT RP Assessment and Plan (1) Cellulitis: Status: Acute Assessment and Plan: d2 for 59yo M with polysubstance abuse on methadone, AUD, tobacco abuse admitted for purulent LLE cellulitis at site of prior skin graft purulent cellulitis - 06/04- vanco + piperacillin-tazobactam, follow BCx. No osteomyelitis on MRI. L groin lymph node, increased since 09/20/23 - MRI pelvis pending acute bronchitis - likely underlying COPD; azithromycin + prednisone 06/04-, nebs, outpt PFTs AUD with concern for impending withdrawal - phenobarbital taper, thiamine, Addiction Medicine consultation pending polysubstance abuse [cocaine + fentanyl] - methadone, Addiction Medicine consultation, HBV/HCV/HIV screen tobacco abuse - NRT VTE ppx - enoxaparin dispo - TBD In my clinical judgment, the patient requires continued inpatient hospitalization for the following reasons: IV ABX Quality Stroke Does the patient have a stroke diagnosis?: No VTE Prior VTE?: No VTE Risk Level:: Medical - moderate - high VTE Device Contraindication: Treatment Not Indicated VTE Drug Contraindication: N/A - Med Ordered
--- NOTE | 2024-06-05 14:05 | HO.WOUND ---
Wound Consult: Initial 59yr old?male admitted to [facility] on 06/04/24 - See progress notes and H&P for detailed history.? Wound consult placed for Left Lower Leg.? Patient agreeable to assessment and photo documentation.? Patient reports he has had the wound for over 1yr - he denies seeking treatment regularly. He denies covering often. Discussed and educated on importance of followup care with patient and benefits such as healing. He would likely benefit from Compression therapy as well. Left Lower Leg Etiology: ?Suspected Venous Wound?Present on Admission Measurements: 8cm x 5cm x 0.3cm Wound Bed: red moist full thickness tissue loss Drainage / Odor: serosang drainage Edges: ? rolled Jena wound: Swelling, hyperpigmentation, dry thickened tissue, Hemosiderin staining? No Induration, Fluctuance or Warmth noted Pain: denies Goals of Treatment: ? Durafiber for moisture management Recommendations: 1. Turn and Reposition every 2 hours and as needed for patient comfort.? Use pillows or wedges to support off loading positions. 2. Off Load all bony prominences with use of pillows and heel boots if needed.? Apply Preventative foams where needed. ? 3. Monitor for incontinence and moisture control, use barrier creams when needed for prevention and treatment. 4. Provide adequate and supplemental nutrition.? 5. When applicable maintain blood glucose levels per Providers order. Left Lower Leg - Cleanse with Ns moist gauze, Pat dry . Apply Skin prep to periwound. Cover wound bed with Durafiber AG, dry gauze, ABD pad and wrap. Followed by [facility]. Change everyother day. Re-consult wound care Nurse for wound deterioration or wound changes.
--- NOTE | 2024-06-05 16:56 | MHC.RECOVRN ---
AUDIT-C Brief Intervention Pt had positive screen for unhealthy alcohol use on admission, subsequently met with t/w to discuss alcohol use and recovery supports/options. This ticket writer met with patient to discuss current alcohol use and concerns related to increased risk of alcohol related problems.? Pt reportsdaily drinking various amounts for years . Discussed how alcohol use has impacted health, including negative impact on overall medical wellness. Withdrawal History: yes but not specific on sx. Treatment History: None reported. Does attend methadone clinic for MOUD Supports:? Discussed risk reduction strategies including drinking below the recommended limit. Provided pt with written resources including information on inpatient and outpatient treatment, BARON, harm reduction, and recovery coaching. Pt plans to practice risk reduction/harm reduction and possible BARON once off Methadone. Pt provided with t/w contact information if questions or concerns arise. Denies other questions or concerns at this time.?
[2024-06-05 18:32] LABS: Vancomycin Random 12.2 mcg/mL (15-20)
[2024-06-05] MEDS: Enoxaparin Sodium 40 MG/0.4 ML SYRINGE SUBCUT (20:32)
[2024-06-05] MEDS: Sodium Chloride 0.65 % Nasal 44 ML SPRBTL 1 SPRAY NOSTRIL-B (21:48)
[2024-06-05] MEDS: Azithromycin 250 MG TABLET PO (22:25)
[2024-06-06] VITALS (9 sets, daily range): BP systolic 136–144; BP diastolic 63–78; PULSE 57–91; RESP 16–20; TEMP 36.2–36.8; O2SAT 94–98
[2024-06-06] MEDS: Piperacillin Sodium/Tazobactam 4.5 GM in 0.9 % Sodium Chloride 100 ML IV ×4 (01:29→19:35)
[2024-06-06] MEDS: Milk of Magnesia 30 ML ORAL.SUSP PO (06:32)
[2024-06-06 06:42] LABS: Hematocrit 36.9 % (42.0-52.0); Hemoglobin 11.9 g/dl (14.0-18.0); Mean Corpuscular HGB Conc 32.2 g/dl (31.0-36.0); Mean Corpuscular Hemoglobin 31.2 pg (27.0-33.0); Mean Corpuscular Volume 96.9 fL (80.0-98.0); Mean Platelet Volume 10.1 fL (9.4-12.4); Platelet Count 280 X10*3/uL (160-400); Red Blood Count 3.81 X10*6/uL (4.60-5.80); Red Cell Distribution Width 14.9 % (11.0-16.0); White Blood Count 8.4 X10*3/uL (4.8-10.8)
[2024-06-06 07:01] LABS: Creatinine Clr Calc Pharmacy 142.8; Estimated Glomerular Filt Rate > 60
[2024-06-06 07:38] LABS: Erythrocyte Sedimentation Rate 38 MM/HR (0-15)
[2024-06-06] MEDS: Albuterol/Iprat 2.5/0.5MG 3 ML AMPUL.NEB INHALE ×4 (07:50→18:36)
[2024-06-06 08:28] LABS: HBc Num1 0.14 S/CO (0.00-0.79); HBsAGNum1 0.32 S/CO (0.00-0.99); HIV AB/AG Nonreactive (Nonreactive); HIV Num 1 0.05 S/CO (0.00-0.99); Hepatitis B Core Antibody Nonreactive (Nonreactive); Hepatitis B Surface Antigen Negative (Negative); ~HepC Num1 0.37 S/CO (0.00-0.79); ~Hepatitis B Surface Antibody NONREACTIVE (Nonreactive); ~Hepatitis C Antibody Nonreactive (Nonreactive)
[2024-06-06] MEDS: methADONE HCl 20 MG/2 ML ORAL.CONC 95 MG PO (09:05)
[2024-06-06] MEDS: Thiamine HCL 100 MG TABLET PO (09:15)
[2024-06-06] MEDS: PHENobarbitaL 15 MG TABLET 45 MG PO ×2 (09:15→21:46)
[2024-06-06] MEDS: predniSONE 20 MG TABLET 40 MG PO (09:15)
[2024-06-06] MEDS: vancomycin HCL 1,500 MG in 0.9 % Sodium Chloride 500 ML 333.33 MG IV ×2 (09:17→20:25)
[2024-06-06] MEDS: Nicotine 14 MG PATCH.TD24 TRANSDERMA (09:19)
[2024-06-06] MEDS: 0.9 % Sodium Chloride Flush 3 ML SYRINGE IVFLUSH ×3 (09:32→19:35)
--- NOTE | 2024-06-06 11:46 | P.PNIM_ITS ---
Subjective Subjective Date of Service: 06/06/24 Interval History: no fever c/o pain/drainage of leg wound Review of Systems Review of Systems: Yes all other systems are reviewed and are negative Physical Exam 2 Vital Signs: Vital Signs: Last Vital Signs Temp 97.4 F 06/06/24 07:48 Pulse 75 06/06/24 07:51 Resp 16 06/06/24 07:51 BP 144/76 H 06/06/24 07:48 Pulse Ox 98 06/06/24 07:48 O2 Del Method Room Air 06/06/24 07:48 BMI result Body Mass Index 36.9 Gen: in no acute distress HEENT: sclera anicteric, moist mucus membranes Neck: supple Lungs: clear to auscultation bilaterally Heart: regular rate and rhythm, no murmurs Abd: soft, non-tender, non-distended Ext: no edema Skin: warm/well-perfused, L connors with large open anterior wound Neuro: alert and oriented x3, no focal findings Psych: appropriate affect Objective Data Active Medications Acetaminophen (Acetaminophen 325 Mg Tablet) 650 mg PO Q6H PRN PRN Reason: Pain, Mild 1-3,fever,headache Albuterol/Ipratropium (Albuterol/Iprat 2.5/0.5mg 3 Ml Ampul.Neb) 3 ml INHALE RQ4H WHILE AWAKE [facility], [facility] Last Admin: 06/06/24 07:50 Dose: 3 ml Documented By: MARY JANE Albuterol/Ipratropium (Albuterol/Iprat 2.5/0.5mg 3 Ml Ampul.Neb) 3 ml INHALE Q4H PRN PRN Reason: Wheezing Azithromycin (Azithromycin 250 Mg Tablet) 250 mg PO Q24H [facility], [facility] Last Admin: 06/05/24 22:25 Dose: 250 mg Documented By: DENITA Calcium Carbonate (Calcium Carbonate 750 Mg Tab.Chew) 750 mg PO Q4H PRN PRN Reason: Heartburn Enoxaparin Sodium (Enoxaparin Sodium 40 Mg/0.4 Ml Syringe) 40 mg SUBCUT Q24H [facility], [facility] Last Admin: 06/05/24 20:32 Dose: 40 mg Documented By: DENITA Piperacillin Sod/Tazobactam (Sod 4.5 gm/ Sodium Chloride) 100 mls @ 200 mls/hr IV Q6H [facility], [facility] Last Admin: 06/06/24 06:25 Dose: 200 mls/hr Documented By: DENITA Vancomycin HCl 1,500 mg/ (Sodium Chloride) 500 mls @ 333.333 mls/hr IV Q12H [facility], [facility] Last Admin: 06/06/24 09:17 Dose: 333.33 mls/hr Documented By: JOSÉ LUIS Magnesium Hydroxide (Milk Of Magnesia 30 Ml Oral.Susp) 30 ml PO DAILY PRN PRN Reason: Constipation Last Admin: 06/06/24 06:32 Dose: 30 ml Documented By: DENITA Melatonin (Melatonin 3 Mg Tablet) 6 mg PO BEDTIME PRN PRN Reason: Insomnia Methadone HCl (Methadone Hcl 20 Mg/2 Ml Oral.Conc) 95 mg PO DAILY@0800 [facility], [facility] Last Admin: 06/06/24 09:05 Dose: 95 mg Documented By: JOSÉ LUIS Co-signed By: QUINN Nicotine (Nicotine 14 Mg Patch.Td24) 14 mg TRANSDERMA DAILY [facility], [facility] Last Admin: 06/06/24 09:19 Dose: 14 mg Documented By: JOSÉ LUIS Ondansetron HCl (Ondansetron Hcl 4 Mg/2 Ml Vial) 4 mg IVPUSH Q8H PRN PRN Reason: Nausea and Vomiting Pharmacy Consult (Consult Rx Etoh Phenob Im/Po) 1 each MISCELLANE ONCE PRN; Protocol PRN Reason: Consult order Pharmacy Consult (Consult Rx Vancomycin Dosing) 1 each MISCELLANE DAILY PRN PRN Reason: Consult order Phenobarbital (Phenobarbital 15 Mg Tablet) 45 mg PO BID [facility], [facility] Stop: 06/06/24 21:01 Last Admin: 06/06/24 09:15 Dose: 45 mg Documented By: JOSÉ LUIS Phenobarbital (Phenobarbital 30 Mg Tablet) 30 mg PO BID [facility], [facility] Stop: 06/08/24 21:01 Phenobarbital (Phenobarbital 30 Mg Tablet) 30 mg PO DAILY [facility] Stop: 06/10/24 09:01 Prednisone (Prednisone 20 Mg Tablet) 40 mg PO DAILY [facility] Last Admin: 06/06/24 09:15 Dose: 40 mg Documented By: JOSÉ LUIS Sodium Chloride (0.9 % Sodium Chloride Flush 3 Ml Syringe) 3 ml IVFLUSH QSHIFT [facility], [facility] Last Admin: 06/06/24 09:32 Dose: 3 ml Documented By: JOSÉ LUIS Sodium Chloride (Sodium Chloride 0.65 % Nasal 44 Ml Sprbtl) 1 spray NOSTRIL-B Q1H PRN PRN Reason: Dryness Last Admin: 06/05/24 21:48 Dose: 1 spray Documented By: DNEITA Thiamine HCl (Thiamine Hcl 100 Mg Tablet) 100 mg PO DAILY KALEY Last Admin: 06/06/24 09:15 Dose: 100 mg Documented By: JOSÉ LUIS Labs 06/06/24 06:24 06/06/24 06:24 Labs: Laboratory Results - last 24 hr 06/05/24 06/06/24 17:58 06:24 MCV 96.9 MCH 31.2 MCHC 32.2 RDW 14.9 Plt Count 280 MPV 10.1 Absolute Nucleated RBC 0.000 Nucleated RBC % (auto) 0.0 ESR 38 H Estim Creat Clear Calc 142.8 Estimated GFR > 60 Random Vancomycin 12.2 L Hep Bs Antigen Negative Hep Bs Antibody NONREACTIVE Hep B Core Total Ab Nonreactive Hepatitis C Ab (EIA) Nonreactive HIV 1&2 Ab/P24 Ag 4thGn Nonreactive Microbiology Microbiology Results: Microbiology 06/04/24 17:36 Blood Culture - Preliminary Blood - Venous No growth after 24 hours. 06/04/24 17:27 Blood Culture - Preliminary Blood - Venous No growth after 24 hours. Assessment and Plan (1) Cellulitis: Status: Acute Assessment and Plan: d3 for 59yo M with polysubstance abuse on methadone, AUD, tobacco abuse admitted for purulent LLE wound infection/cellulitis at site of prior skin graft purulent wound infection/cellulitis - 06/04- vanco + piperacillin-tazobactam, follow BCx. No osteomyelitis on MRI. ID consultation - Wound Care: Cleanse with Ns moist gauze, Pat dry . Apply Skin prep to periwound. Cover wound bed with Durafiber AG, dry gauze, ABD pad and wrap. Followed by [facility]. Change everyother day. L groin lymph node, increased since 09/20/23 - MRI pelvis pending acute bronchitis - likely underlying COPD; azithromycin + prednisone 06/04-06/09, nebs, outpt PFTs AUD with concern for impending withdrawal - phenobarbital taper, thiamine; met Recovery Team polysubstance abuse [cocaine + fentanyl] - methadone; met with Recovery Team; HBV/HCV/HIV screen negative tobacco abuse - NRT VTE ppx - enoxaparin dispo [facility] In my clinical judgment, the patient requires continued inpatient hospitalization for the following reasons: IV ABX Total time managing care of this patient today: 35 minutes. Quality Stroke Does the patient have a stroke diagnosis?: No VTE Prior VTE?: No VTE Risk Level:: Medical - moderate - high VTE Device Contraindication: Treatment Not Indicated VTE Drug Contraindication: N/A - Med Ordered
[2024-06-06] MEDS: gadobutroL 10 ML VIAL IVPUSH (13:33)
--- NOTE | 2024-06-06 14:17 | MHC.CM.PN ---
Patient no longer in custody. Per Christy @ [facility], Judge Hansen has released warrants. New arraignment scheduled for 06/14. Patient aware. Per MD, no need for IV abx on dc. DP: Home, wound care at [facility] (no PCP). CM will continue to follow.
[2024-06-06 18:26] LABS: Vancomycin Random 16.2 mcg/mL (15-20)
--- NOTE | 2024-06-06 18:34 | HE.PHANOTE ---
Re: esteban Renal function is improving. Trough returned at 16.2, pt is therapeutic. Continue dose at 1500mg q12h, with predicted AUC 503, predicted trough 15.7. Next trough 06/07 @ 1800.
[2024-06-06] MEDS: Enoxaparin Sodium 40 MG/0.4 ML SYRINGE SUBCUT (19:39)
[2024-06-06] MEDS: Azithromycin 250 MG TABLET PO (21:46)
--- NOTE | 2024-06-06 23:35 | W.PM.IDCN ---
History of Present Illness Data of Consult Service Date: 06/06/24 Requesting physician: Peng Agrawal Primary Care Provider: None Physician HPI Reason for consult: left leg complaints of erythema He reports redness LLE within last one to two years. He has had injury to left leg. 13 years ago he had graft and then area dissolved. He has no bacteremia at this tme. He has no fever or leukocytosis. Review of Systems Review of Systems: Yes all other systems are reviewed and are negative PMFSH Past Medical History Medical History Alcohol abuse Tobacco use disorder Polysubstance use disorder Family History Family history: reviewed and not pertinent Social History Social History Household Members: None Housing: Apartment Do you presently have visiting nurse or other home services: No Alcohol intake: current Alcohol type: hard liquor Patient Tobacco Use Status: Current everyday Tobacco user Tobacco use type: Cigarette Cigarette Packs Per Day: 0.5 Cigarettes Per Day: 10.0 e-Cigarette/Vaping Use: Never Used Substance Use Type: Crack/Cocaine service: No Meds Allergies Allergy/AdvReac Type Severity Reaction Status Date / Time No Known Allergies Allergy Verified 06/04/24 16:33 Active Medications: Current Medications Acetaminophen (Acetaminophen 325 Mg Tablet) 650 mg PO Q6H PRN PRN Reason: Pain, Mild 1-3,fever,headache Albuterol/Ipratropium (Albuterol/Iprat 2.5/0.5mg 3 Ml Ampul.Neb) 3 ml INHALE RQ4H WHILE AWAKE [facility] Last Admin: 06/06/24 18:36 Dose: 3 ml Albuterol/Ipratropium (Albuterol/Iprat 2.5/0.5mg 3 Ml Ampul.Neb) 3 ml INHALE Q4H PRN PRN Reason: Wheezing Azithromycin (Azithromycin 250 Mg Tablet) 250 mg PO Q24H [facility] Last Admin: 06/06/24 21:46 Dose: 250 mg Calcium Carbonate (Calcium Carbonate 750 Mg Tab.Chew) 750 mg PO Q4H PRN PRN Reason: Heartburn Enoxaparin Sodium (Enoxaparin Sodium 40 Mg/0.4 Ml Syringe) 40 mg SUBCUT Q24H [facility] Last Admin: 06/06/24 19:39 Dose: 40 mg Piperacillin Sod/Tazobactam (Sod 4.5 gm/ Sodium Chloride) 100 mls @ 200 mls/hr IV Q6H [facility] Last Infusion: 06/06/24 20:25 Dose: Infused Vancomycin HCl 1,500 mg/ (Sodium Chloride) 500 mls @ 333.333 mls/hr IV Q12H [facility] Last Infusion: 06/06/24 22:06 Dose: Infused Magnesium Hydroxide (Milk Of Magnesia 30 Ml Oral.Susp) 30 ml PO DAILY PRN PRN Reason: Constipation Last Admin: 06/06/24 06:32 Dose: 30 ml Melatonin (Melatonin 3 Mg Tablet) 6 mg PO BEDTIME PRN PRN Reason: Insomnia Methadone HCl (Methadone Hcl 20 Mg/2 Ml Oral.Conc) 95 mg PO DAILY@0800 [facility] Last Admin: 06/06/24 09:05 Dose: 95 mg Nicotine (Nicotine 14 Mg Patch.Td24) 14 mg TRANSDERMA DAILY [facility] Last Admin: 06/06/24 09:19 Dose: 14 mg Ondansetron HCl (Ondansetron Hcl 4 Mg/2 Ml Vial) 4 mg IVPUSH Q8H PRN PRN Reason: Nausea and Vomiting Pharmacy Consult (Consult Rx Etoh Phenob Im/Po) 1 each MISCELLANE ONCE PRN; Protocol PRN Reason: Consult order Pharmacy Consult (Consult Rx Vancomycin Dosing) 1 each MISCELLANE DAILY PRN PRN Reason: Consult order Phenobarbital (Phenobarbital 30 Mg Tablet) 30 mg PO BID [facility] Stop: 06/08/24 21:01 Phenobarbital (Phenobarbital 30 Mg Tablet) 30 mg PO DAILY [facility] Stop: 06/10/24 09:01 Prednisone (Prednisone 20 Mg Tablet) 40 mg PO DAILY [facility] Last Admin: 06/06/24 09:15 Dose: 40 mg Sodium Chloride (0.9 % Sodium Chloride Flush 3 Ml Syringe) 3 ml IVFLUSH QSHIFT [facility] Last Admin: 06/06/24 19:35 Dose: 3 ml Sodium Chloride (Sodium Chloride 0.65 % Nasal 44 Ml Sprbtl) 1 spray NOSTRIL-B Q1H PRN PRN Reason: Dryness Last Admin: 06/05/24 21:48 Dose: 1 spray Thiamine HCl (Thiamine Hcl 100 Mg Tablet) 100 mg PO DAILY [facility] Last Admin: 06/06/24 09:15 Dose: 100 mg Home Medications ?Medication ?Instructions ?Recorded ?Confirmed ?Last Taken ?Type methadone 10 mg/mL oral concentrate 95 mg PO DAILY 06/05/24 06/05/24 06/03/24 09:29 History Physical Exam Vital Signs: Vital Signs: Last Vital Signs Temp 97.8 F 06/06/24 19:52 Pulse 82 06/06/24 19:52 Resp 18 06/06/24 19:52 BP 141/63 H 06/06/24 19:52 Pulse Ox 98 06/06/24 19:52 O2 Del Method Room Air 06/06/24 19:52 BMI result Body Mass Index 36.9 Const: General: cooperative HEENT: Head: Yes normal to inspection Face and sinus: Yes normal facial exam Mouth: Normal oral and palatal mucosa present Teeth and gingiva: dentition normal Eyes: General: appearance normal, both eyes and all related structures Pupils: Equal, round and reactive pupils present Resp: Effort & Inspection: normal respiratory effort Cardio: Rate: regular rate Rhythm: regular rhythm GI: Palpation (GI): Soft to palpation and nontender : General: Yes no CVA tenderness Back/Spine/Pelvis: Back: no CVA tenderness Skin: General skin exam: no rashes or lesions noted Neuro: General: moves all extremities Cranial nerves: Yes Equal, round and reactive pupils present Extrem: Other: left leg chronically broken down skin area. Would give po antibiotics if not bacteremia tomorrow,Augmentin and Doxycycline for a week and Wound Care to followup as this looks chronic,some slightly elevated CRP MRI pelvis and leg no OM Psych: Appearance: grossly normal Results Labs 06/06/24 06:24 06/06/24 06:24 Labs: Short CBC 06/06/24 Range/Units 06:24 WBC 8.4 (4.8-10.8) X10*3/uL Hgb 11.9 L (14.0-18.0) g/dl Hct 36.9 L (42.0-52.0) % Plt Count 280 (160-400) X10*3/uL BMP 06/06/24 06:24 Creatinine 0.70 Microbiology Microbiology Results: Microbiology 06/04/24 17:36 Blood - Venous Blood Culture - Preliminary No growth after 48 hours. 06/04/24 17:27 Blood - Venous Blood Culture - Preliminary No growth after 48 hours.
[2024-06-07] MEDS: Piperacillin Sodium/Tazobactam 4.5 GM in 0.9 % Sodium Chloride 100 ML IV ×2 (01:04→06:04)
[2024-06-07 03:40] VITALS: BP 123/75; PULSE 58; RESP 18; TEMP 36.7; O2SAT 96
[2024-06-07 07:37] VITALS: BP 145/65; PULSE 57; RESP 18; TEMP 36.3; O2SAT 97
[2024-06-07 07:37] LABS: Creatinine Clr Calc Pharmacy 151.4; Estimated Glomerular Filt Rate > 60
[2024-06-07 08:10] VITALS: PULSE 57; RESP 18; O2SAT 97
[2024-06-07] MEDS: Albuterol/Iprat 2.5/0.5MG 3 ML AMPUL.NEB INHALE ×2 (08:10→11:39)
[2024-06-07] MEDS: Nicotine 14 MG PATCH.TD24 TRANSDERMA (08:15)
[2024-06-07] MEDS: 0.9 % Sodium Chloride Flush 3 ML SYRINGE IVFLUSH (08:16)
[2024-06-07] MEDS: Doxycycline Monohydrate 100 MG CAPSULE PO (08:17)
[2024-06-07] MEDS: PHENobarbitaL 30 MG TABLET PO (08:17)
[2024-06-07] MEDS: Thiamine HCL 100 MG TABLET PO (08:17)
[2024-06-07] MEDS: Amoxicillin/Potassium Clav 875 MG TABLET PO (08:17)
[2024-06-07] MEDS: predniSONE 20 MG TABLET 40 MG PO (08:17)
[2024-06-07] MEDS: methADONE HCl 20 MG/2 ML ORAL.CONC 95 MG PO (08:19)
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
--- NOTE | 2024-06-07 11:36 | MHC.CM.PN ---
Addendum entered by Cherie Jung 06/07/24 15:11: PT DECLINING SHUTTLE OR LYFT, WOULD LIKE TO WALK HOME Original Note: CM MET WITH PT TO DISCUSS DC PLANNING PT IS AWARE A WOUND CARE CLINIC APPT HAS BEEN SCHEDULED FOR JUNE 20, 2024 AT 1230, HE REPORTS HE DOES NOT NEED TRANSPORTATION ASSISTANCE HE LIV[place] NEAR[place] PT REPORTS HE NEEDS TO GET A PCP AND WOULD BE WILLING TO GO TO [facility] OR [facility], TASK SENT TO CM OFFICE FOR APPT PT DOES NOT KNOW HIS PHONE NUMBER, BUT AGREES TO CALL CM WHEN HE GETS HOME TO PROVIDE CONTACT INFORMATION CM WILL PASS PTS PHONE NUMBER [facility] WHO HAS INDICATED THEY WILL CALL PT IF ANY EARLIER APPTS OPEN UP PT WAS ALSO PROVIDED WITH THE SCHEDULE FOR THE [facility] WHERE HE CAN GET ASSISTANCE WITH WOUND CARE 2X/WEEK NEAR HIS HOME PT WILL DC HOME TODAY VIA SHUTTLE VS [facility]I
[2024-06-07 11:39] VITALS: PULSE 71; RESP 16; O2SAT 97
== END 2024-06-07 14:54 | disposition home or self-care (01) | DRG 383 ==
LOC: HO.ED 19:16 → HO.EDOVER 19:37 → HO.S3 23:55
PROVIDERS: Physician Assistant Medical; Admitting Provider Student in an Organized Health Care Education/Training Program; Emergency Provider Internal Medicine; Visit Provider Family Medicine
DX: L03.116 Cellulitis of left lower limb (principal); J44.0 Chronic obstructive pulmonary disease with (acute) lower respiratory infection; F10.139 Alcohol abuse with withdrawal, unspecified; F17.210 Nicotine dependence, cigarettes, uncomplicated; F11.20 Opioid dependence, uncomplicated; Z71.6 Tobacco abuse counseling; Y90.1 Blood alcohol level of 20-39 mg/100 ml; J20.9 Acute bronchitis, unspecified; F19.10 Other psychoactive substance abuse, uncomplicated; Z20.822 Contact with and (suspected) exposure to COVID-19
CPT/HCPCS: 0241U; 36415; 71275; 72197; 73590; 73720; 80048; 80076; 80143; 80179; 80202; 80307; 81001; 82565; 83605; 83735; 83880; 84484; 85025; 85027; 85652; 86140; 86704; 86706; 86803; 87040; 87340; 87389; 93005; 93971; 94640; 99285; A9585; J0456; J1650; J2543; J2560; J3370; J3371; J3411; J7120; Q9967; S9485

== ENCOUNTER → 2024-06-04 17:54 | Outpatient (BNV) | payer MEDICAID, SELFPAY | PROVIDERS: Emergency Provider Internal Medicine; Visit Provider Radiology Diagnostic Radiology | DX: R06.02 Shortness of breath (principal); M79.605 Pain in left leg | CPT/HCPCS: 71275; 73590; 93971 ==

== ENCOUNTER → 2024-06-04 17:58 | Outpatient (BNV) | payer MEDICAID, SELFPAY | PROVIDERS: Admitting Provider Student in an Organized Health Care Education/Training Program; Emergency Provider Internal Medicine; Visit Provider Internal Medicine Cardiovascular Disease | DX: R94.31 Abnormal electrocardiogram [ECG] [EKG] (principal); R06.02 Shortness of breath | CPT/HCPCS: 93010 ==

== ENCOUNTER 2024-06-04 19:30 | Outpatient (BNV) | payer MEDICAID, SELFPAY | END 2024-06-06 11:45 | PROVIDERS: Admitting Provider Student in an Organized Health Care Education/Training Program; Emergency Provider Internal Medicine; Visit Provider Radiology Diagnostic Radiology | DX: R59.0 Localized enlarged lymph nodes (principal) | CPT/HCPCS: 72197 ==

== ENCOUNTER 2024-06-04 19:30 | Outpatient (BNV) | payer MEDICAID, SELFPAY | END 2024-06-05 12:10 | PROVIDERS: Admitting Provider Student in an Organized Health Care Education/Training Program; Emergency Provider Internal Medicine; Visit Provider Radiology Diagnostic Radiology | DX: L03.116 Cellulitis of left lower limb (principal) | CPT/HCPCS: 73720 ==

== ENCOUNTER → 2024-06-04 19:30 | Outpatient (BNV) | payer MEDICAID, SELFPAY | PROVIDERS: Admitting Provider Student in an Organized Health Care Education/Training Program; Emergency Provider Internal Medicine; Visit Provider Internal Medicine | DX: L53.9 Erythematous condition, unspecified (principal) | CPT/HCPCS: 99222 ==

== ENCOUNTER → 2024-06-04 19:30 | Outpatient (BNV) | payer MEDICAID, SELFPAY | PROVIDERS: Admitting Provider Student in an Organized Health Care Education/Training Program; Emergency Provider Internal Medicine; Visit Provider Student in an Organized Health Care Education/Training Program | DX: L03.90 Cellulitis, unspecified (principal); T14.8XXA Other injury of unspecified body region, initial encounter; L08.9 Local infection of the skin and subcutaneous tissue, unspecified; F10.10 Alcohol abuse, uncomplicated; F19.90 Other psychoactive substance use, unspecified, uncomplicated; F17.200 Nicotine dependence, unspecified, uncomplicated; J44.9 Chronic obstructive pulmonary disease, unspecified | CPT/HCPCS: 99223; 99232; 99239 ==

== ENCOUNTER 2024-12-19 07:09 | Inpatient (IN) | payer MEDICAID, SELFPAY ==
[2024-12-19] VITALS (10 sets, daily range): BP systolic 134–182; BP diastolic 76–127; PULSE 59–82; RESP 14–21; TEMP 36.3–36.9; O2SAT 91–97; BMI 39.1; BMI 35.6
--- NOTE | ~2024-12-19 | US_ITS ---
EXAMINATION: US LOWER EXTREMITY VEINS LIMITED LEFT HISTORY: swelling, erythema, pain, concern for DVT COMPARISON: Comparison is made with the prior examination dated 06/04/2024. TECHNIQUE: Duplex and color Doppler sonographic examination of the deep venous system of the left lower extremity was performed. FINDINGS: The common femoral, superficial femoral, and popliteal veins are patent demonstrating normal compressibility, spontaneous flow, and augmentation. There is a normal color and spectral Doppler waveform appearance of the visualized deep venous system above the knee. The posterior tibial and peroneal veins are patent. Multiple enlarged lymph nodes are again noted. A left inguinal node measures 4.8 x 2.0 x 3.1 cm (previously 4.5 x 1.6 x 2.9 cm). A popliteal fossa lymph node measures 1.6 x 1.2 x 1.6 cm. US/US venous duplex LE LT IMPRESSION: 1. No evidence of acute DVT in the left lower extremity. 2. Left inguinal and popliteal lymphadenopathy. Findings are suspicious for neoplasm. Ultrasound-guided fine-needle aspiration to be considered. Electronically signed by: Stanley Desir MD 12/19/2024 08:41 AM EDT
--- NOTE | ~2024-12-19 | XR_ITS ---
EXAMINATION: XR CHEST CLINICAL INFORMATION: SOB COMPARISON: Correlated to CT chest PE protocol dated June 04, 2024 TECHNIQUE: Frontal view of the chest was obtained. FINDINGS: Pulmonary reticular nodular pattern with patchy opacities both upper lung lobes and right lower hemithorax. No pleural effusion. No pneumothorax. No hyperinflation. Cardiomediastinal silhouette size is normal with calcified plaque thoracic aorta. Multilevel spondylosis, axial skeleton no fully evaluated due to patient's body habitus. XR/XR chest 1V IMPRESSION: Acute on chronic airspace disease. Superimposed mild interstitial lung edema cannot be excluded. Electronically signed by: Stiven Candelaria MD 12/19/2024 08:52 AM EDT
--- NOTE | ~2024-12-19 | XR_ITS ---
EXAMINATION: XR TIBIA FIBULA 2 VIEWS LEFT HISTORY: pain, infection COMPARISON: Comparison is made with the prior examination dated 06/04/2024. FINDINGS: AP and lateral views of the left tibia and fibula are submitted. Again seen is cortical thickening involving the mid shafts of the tibia and fibula. No osseous destruction is seen. There is no fracture or dislocation. The visualized knee and ankle joint spaces are preserved. There is diffuse soft tissue swelling. XR/XR tibia fibula LT 2V IMPRESSION: Diffuse soft tissue swelling. Stable cortical thickening involving the mid shafts of the tibia and fibula. No plain film evidence of osteomyelitis. If this remains a clinical concern, three-phase bone scan or MRI could be performed. Electronically signed by: Stanley Desir MD 12/19/2024 08:54 AM EDT
--- NOTE | ~2024-12-19 | US_ITS ---
EXAMINATION: Ultrasound extremity nonvascular Limited left leg CLINICAL INDICATION: Edema. Pain and edema. TECHNIQUE: Limited ultrasound imaging to the left anterior tibial compartment was performed. The COMPARISON: Ultrasound lower extremity venous study 12/19/2024. FINDINGS: Imaging of left anterior tibial compartment reveals area of open wound. There is no underlying abscess, mass or fluid collection. There is mild underlying edema present. US/US Extremity Nonvas Limited LT IMPRESSION: Left anterior tibial skin open wound. No underlying abscess, fluid collection or hypervascularity. Electronically signed by: Patrice Shepherd MD 12/20/2024 11:32 AM EDT
--- NOTE | 2024-12-19 07:28 | ED_ITS ---
HPI - General Adult General Chief complaint: General Medical Stated complaint: sts sick cant breath Time Seen by Provider: 12/19/24 07:27 Source: patient Mode of arrival: ambulatory Limitations: no limitations History of Present Illness ED Provider: Mariposa Hutchison PA-C HPI narrative: Patient is a 59 year old assigned male at with a history of crack cocaine use, alcohol abuse, left lower leg grafting that has dissolved with recurrent cellulitis, and COPD presenting to the emergency department today with shortness of breath, alcohol withdrawal, and left lower leg pain / swelling / drainage. Patient states that he has been drinking a lot and every day and now he is concerned he is in withdrawal. Patient states that he is feeling short of breath. Patient states that his left lower leg has looked bad and only getting worse. Patient denies any history of IVDA. Patient denies any other complaints at this time. Related Data Home Medications ?Medication ?Instructions ?Recorded ?Confirmed methadone 10 mg/mL oral concentrate 95 mg PO DAILY 06/05/24 Previous Rx's ?Medication ?Instructions ?Recorded albuterol sulfate 90 mcg/actuation 2 puff inhalation Q 4-6H PRN 06/07/24 aerosol inhaler shortness of breath or wheez ing #8.5 grams amoxicillin 875 mg-potassium 1 tab PO Q12H #14 tabs clavulanate 125 mg tablet doxycycline monohydrate 100 mg 100 mg PO Q12H #14 caps 06/07/24 capsule nicotine 14 mg/24 hr daily 14 mg transdermal DAILY #30 ea 06/07/24 transdermal patch prednisone 20 mg tablet 40 mg (2 x 20 mg) PO DAILY # 4 tabs 06/07/24 thiamine mononitrate (vit B1) 100 100 mg PO DAILY #30 tabs 06/07/24 mg tablet Allergies Allergy/AdvReac Type Severity Reaction Status Date / Time No Known Allergies Allergy Verified 12/19/24 07:18 Review of Systems 2 Constitutional: Constitutional: Reports as per HPI Eyes: Eyes: Reports as per HPI ENT: Reports as per HPI Cardiovascular: Cardiovascular: Reports as per HPI Respiratory: Respiratory: Reports as per HPI Gastrointestinal: Gastrointestinal: Reports as per HPI Genitourinary: Genitourinary: Reports as per HPI Musculoskeletal: Musculoskeletal: Reports as per HPI Integumentary/Breasts: Skin/Breast: Reports as per HPI Neurologic: Reports as per HPI Psychiatric: Psychiatric: Reports as per HPI Endocrine: Endocrine: Reports as per HPI Hematologic/Lymphatic: Hematologic/Lymphatic: Reports as per HPI Allergic/Immunologic: Allergic/Immunologic: Reports as per HPI [facility] Past Medical History Attestation statement: The following information was validated with the patient. Source: old records reviewed and nursing notes reviewed Medical History Alcohol abuse Tobacco use disorder Polysubstance use disorder Social History Social History Household Members: None Housing: Apartment Do you presently have visiting nurse or other home services: No Alcohol intake: current Alcohol intake frequency: 0-2 drinks per day Alcohol type: hard liquor Patient Tobacco Use Status: Current everyday Tobacco user Tobacco use type: Cigarette Cigarette Packs Per Day: 0.5 Cigarettes Per Day: 10.0 Smoked in Last 30 Days: Yes e-Cigarette/Vaping Use: Never Used Use of substances other than those prescribed or required for medical reasons: Yes Substance Use Type: Crack/Cocaine Advance Directives: No Advance Directives Information Provided: No service: No Physical Exam ED Vital Signs: Vital Signs - 24 hr 12/19/24 07:12 12/19/24 08:43 Temperature 97.6 F Pulse Rate 80 67 Respiratory Rate 18 21 H Pulse Oximetry 95 Oxygen Delivery Method Room Air BMI result Body Mass Index 39.1 Const General: cooperative, no acute distress, alert and awake Nutritional Appearance: well nourished Orientation/consciousness: patient oriented x3 HENMT Head: Yes normal to inspection and Yes atraumatic Ears: hearing grossly normal bilaterally and external ears normal General nose exam: Normal external nose present, no nasal discharge noted and no epistaxis Face and sinus: Yes normal facial exam, No abrasion and No laceration Mouth: Normal oral and palatal mucosa present, no drooling and no muffled voice Eyes General: appearance normal, both eyes and all related structures Periorbital: periorbital findings normal Eyelids: Yes eyelids normal Conjunctivae: conjunctivae normal Pupils: Equal, round and reactive pupils present EOM: EOMs intact bilaterally Neck Neck: Yes normal visual inspection and Yes full ROM Resp Effort & Inspection: able to speak in complete sentences Auscultation: diminished lung sounds bilateral in the lower lung carpio Skin Other: several skin excoriations to upper and lower extremities Neuro General: patient oriented x3, moves all extremities and CN's II-XI intact bilaterally Cranial nerves: Yes Equal, round and reactive pupils present Cognition (Neuro): normal cognition Extrem Other: several skin excoriations to upper and lower extremities LLE: General: Yes full ROM and Yes capillary refill normal Psych Appearance: grossly normal Mental Status: mental status grossly normal Affect: normal affect Attitude: cooperative Thought process: Normal thought process present Thought content: Normal thought content present Insight: Good insight present (Psych) Medications Administered Generic Name Dose Route Start Last Admin Trade Name Freq PRN Reason Stop Dose Admin Vancomycin HCl 2,000 mg in 500 mls @ 250 mls/hr 12/19/24 07:40 12/19/24 08:16 Vancomycin/Ns IV 12/19/24 09:39 250 mls/hr ONCE ONE Administration Discontinued Medications Generic Name Dose Route Start Last Admin Trade Name Freq PRN Reason Stop Dose Admin Albuterol Sulfate 2.5 mg/ 0 mg 12/19/24 08:43 12/19/24 08:50 Albuterol/Ipratropium 3 ml INHALE 12/19/24 08:44 5 dose ONCE ONE Administration Piperacillin Sod/Tazobactam 50 mls @ 100 mls/hr 12/19/24 07:40 12/19/24 08:38 Sod 3.375 gm/ Sodium Chloride IV 12/19/24 08:09 Infused ONCE ONE Infusion Methylprednisolone Sodium Succinate 60 mg 12/19/24 07:57 12/19/24 08:40 Methylprednisolone Sod Succ 125 Mg/2 Ml Vial IVPUSH 12/19/24 07:58 60 mg ONCE ONE Administration Phenobarbital Sodium 283.4 mg 12/19/24 08:00 12/19/24 08:03 Phenobarbital Sodium 130 Mg/Ml Im Once IM 12/19/24 08:01 283.4 mg ONCE ONE Administration Protocol Medical Decision Making Medical Decision Making MDM Narrative: Patient is a 59 year old assigned male at with a history of crack cocaine use, alcohol abuse, left lower leg grafting that has dissolved with recurrent cellulitis, and COPD presenting to the emergency department today with shortness of breath, alcohol withdrawal, and left lower leg pain / swelling / drainage. Patient's physical exam was as noted in the physical exam portion of this note. Patient's physical exam findings are concerning for acute cellulitis, COPD exacerbation, and alcohol withdrawal. Patient's blood work showed an ESR of 77 + CRP of 7.88. Elevated LFTs per his baseline with AST 94, ALT 47, alk phos 172. Patient's chest x-ray showed acute on chronic air space disease. Patient's left tib fib x-ray showed diffuse soft tissue swelling with no evidence of osteomyelitis. Patient's left lower extremity DVT US showed no DVT but did show continued lymph node swelling which was noted on his last admission in May 2024. Patient's clinical presentation is most consistent with left lower leg cellulitis, COPD exacerbation, and alcohol withdrawal and NOT sepsis (@0920). Patient was given IV Vancomycin + Zosyn for his left lower leg cellulitis. Patient was given solu-medrol and a breathing treatment for his SOB / COPD exacerbation. Patient was started on phenobarb protocol for alcohol withdrawal. I spoke with the hospitalist team who agreed to admission for continued IV ABX, phenobarb protocol, and COPD exacerbation. I explained my physical exam findings as well as all test results to the patient. I answered all questions asked by the patient. Patient verbalized agreement and understanding with this treatment plan and admission. Differential Diagnosis Differential Diagnoses: The differential diagnosis associated with the presentation includes COPD exacerbation Left lower leg cellulitis Cough Viral illness Alcohol withdrawal Admission/Observation Consideration of admission/observation: Escalation of care including admission/observation considered Patient admitted as noted in the MDM Rationale portion of this note. Consult Healthcare Provider Management of the patient was discussed with: Hospitalist (agreed to admission as noted in the MDM Rationale portion of this note. ) Lab Data [facility] Lab Attestation statement: I reviewed the patient's lab results. My interpretation of these results are in the MDM Rationale portion of this note. 12/19/24 07:44 12/19/24 07:44 Labs: Lab Results 12/19/24 12/19/24 Range/Units 07:44 07:55 WBC 7.7 (4.8-10.8) X10*3/uL RBC 4.24 L (4.60-5.80) X10*6/uL Hgb 13.7 L (14.0-18.0) g/dl Hct 42.2 (42.0-52.0) % MCV 99.5 H (80.0-98.0) fL MCH 32.3 (27.0-33.0) pg MCHC 32.5 (31.0-36.0) g/dl RDW 13.8 (11.0-16.0) % Plt Count 296 (160-400) X10*3/uL MPV 9.4 (9.4-12.4) fL Immature Gran % (Auto) 0.4 (0.0-0.4) % Neut % (Auto) 67.3 (45-73) % Lymph % (Auto) 17.2 L (20-40) % [place] % (Auto) 12.5 H (2-11) % Eos % (Auto) 2.1 (0-4) % Baso % (Auto) 0.5 (0-2) % Lymph # (Auto) 1.3 (1.2-4.9) X10*3/uL [place] # (Auto) 1.0 (0.1-1.2) X10*3/uL Eos # (Auto) 0.2 (0.0-0.4) X10*3/uL Baso # (Auto) 0.0 (0.0-0.2) X10*3/uL Abs Immat Gran (auto) 0.03 (0.00-0.03) X10*3/uL Absolute Neuts (auto) 5.2 (2.0-8.3) x10*3/uL Absolute Nucleated RBC 0.000 (0.0-0.012) X10*3/uL Nucleated RBC % (auto) 0.0 (0.0-0.2) /100WBC ESR 77 H (0-15) MM/HR VBG pH 7.48 H (7.32-7.43) VBG pCO2 41 mmHg VBG pO2 87 mmHg VBG HCO3 30 H (22-26) mmol/L VBG O2 Saturation 98.0 % VBG Base Excess 6.6 mmol/L Sodium 140 (135-145) mmol/L Potassium 3.7 (3.3-5.1) mmol/L Chloride 100 (96-108) mmol/L Carbon Dioxide 28 (22-29) mmol/L Anion Gap 16 (12-20) BUN 11 (9-16) mg/dL Creatinine 0.73 (0.5-1.4) mg/dL Estim Creat Clear Calc 141.1 Estimated GFR > 60 Random Glucose 71 (60-115) mg/dL Lactic Acid 1.7 (0.5-2.0) mmol/L Calcium 8.5 (8.4-10.2) mg/dL Total Bilirubin 0.5 (0.0-1.0) mg/dL AST 94 H (5-37) U/L ALT 47 H (0-40) U/L Alkaline Phosphatase 172 H (39-117) U/L C-Reactive Protein 7.88 H (< or = 0.50) mg/dL Total Protein 8.7 H (6.5-8.0) g/dL Albumin 3.6 (3.5-5.0) g/dL Ethyl Alcohol 187 mg/dL COVID-19 (DIGNA) Negative (Negative) COVID-19 Clin Com See Note Influenza Type A (OMA) Negative (Negative) Influenza Type B (OMA) Negative (Negative) Influenza A & B Note See Note Independent Interpretation I performed an independent interpretation of an: Plain X-Ray and Ultrasound Interpretation: My interpretation is in agreement with the radiologist's impression of these imaging studies. L Reason for Exam: swelling, erythema, pain, concern for DVT EXAMINATION: US LOWER EXTREMITY VEINS LIMITED LEFT HISTORY: swelling, erythema, pain, concern for DVT COMPARISON: Comparison is made with the prior examination dated 06/04/2024. TECHNIQUE: Duplex and color Doppler sonographic examination of the deep venous system of the left lower extremity was performed. FINDINGS: The common femoral, superficial femoral, and popliteal veins are patent demonstrating normal compressibility, spontaneous flow, and augmentation. There is a normal color and spectral Doppler waveform appearance of the visualized deep venous system above the knee. The posterior tibial and peroneal veins are patent. Multiple enlarged lymph nodes are again noted. A left inguinal node measures 4.8 x 2.0 x 3.1 cm (previously 4.5 x 1.6 x 2.9 cm). A popliteal fossa lymph node measures 1.6 x 1.2 x 1.6 cm. US/US venous duplex LE LT IMPRESSION: 1. No evidence of acute DVT in the left lower extremity. 2. Left inguinal and popliteal lymphadenopathy. Findings are suspicious for neoplasm. Ultrasound-guided fine-needle aspiration to be considered. Electronically signed by: Stanley Desir MD 12/19/2024 08:41 AM G[facility]eter Dictated By: Stanley Desir MD Signed By: Electronically signed by Stanley Desir MD 12/19/24 0841 Reason for Exam: pain, infection EXAMINATION: XR TIBIA FIBULA 2 VIEWS LEFT HISTORY: pain, infection COMPARISON: Comparison is made with the prior examination dated 06/04/2024. FINDINGS: AP and lateral views of the left tibia and fibula are submitted. Again seen is cortical thickening involving the mid shafts of the tibia and fibula. No osseous destruction is seen. There is no fracture or dislocation. The visualized knee and ankle joint spaces are preserved. There is diffuse soft tissue swelling. XR/XR tibia fibula LT 2V IMPRESSION: Diffuse soft tissue swelling. Stable cortical thickening involving the mid shafts of the tibia and fibula. No plain film evidence of osteomyelitis. If this remains a clinical concern, three-phase bone scan or MRI could be performed. Electronically signed by: Stanley Desir MD 12/19/2024 08:54 AM G[facility]eter Dictated By: Stanley Desir MD Signed By: Electronically signed by Stanley Desir MD 12/19/24 0854 Reason for Exam: SOB EXAMINATION: XR CHEST CLINICAL INFORMATION: SOB COMPARISON: Correlated to CT chest PE protocol dated June 04, 2024 TECHNIQUE: Frontal view of the chest was obtained. FINDINGS: Pulmonary reticular nodular pattern with patchy opacities both upper lung lobes and right lower hemithorax. No pleural effusion. No pneumothorax. No hyperinflation. Cardiomediastinal silhouette size is normal with calcified plaque thoracic aorta. Multilevel spondylosis, axial skeleton no fully evaluated due to patient's body habitus. XR/XR chest 1V IMPRESSION: Acute on chronic airspace disease. Superimposed mild interstitial lung edema cannot be excluded. Electronically signed by: Stiven Candelaria MD 12/19/2024 08:52 AM EDT RP Dictated By: Stiven Law MD Signed By: Electronically signed by Stiven Hamilton MD 12/19/24 0852 Radiology Impression Discussion of test interpretation with radiology: I have reviewed the radiologist's reading. External Record Review External record reviewed: Inpatient record Critical Care Time Critical Care Time Critical Care Time: Yes Total Critical Care Time: 39 Attestation: I spent 39 minutes of Critical Care Time with this patient. This does not include time spent on separately reported billable procedures. Discharge Plan Discharge Clinical Impression: Alcohol withdrawal, Cellulitis, Acute exacerbation of chronic obstructive pulmonary disease Patient Disposition: Admitted As Inpatient Print Language: Afghan
[2024-12-19 07:54] LABS: MANUAL DIFF FLAG NO
[2024-12-19 07:56] LABS: Hematocrit 42.2 % (42.0-52.0); Hemoglobin 13.7 g/dl (14.0-18.0); Imm Gran Abs Auto 0.03 X10*3/uL (0.00-0.03); Imm Gran Pct Auto 0.4 % (0.0-0.4); Lymphocytes Absolute Auto 1.3 X10*3/uL (1.2-4.9); Mean Corpuscular HGB Conc 32.5 g/dl (31.0-36.0); Mean Corpuscular Hemoglobin 32.3 pg (27.0-33.0); Mean Corpuscular Volume 99.5 fL (80.0-98.0); NRBC Abs Auto 0.000 X10*3/uL (0.0-0.012); NRBC Pct Auto 0.0 /100WBC (0.0-0.2); Platelet Count 296 X10*3/uL (160-400); Red Blood Count 4.24 X10*6/uL (4.60-5.80); White Blood Count 7.7 X10*3/uL (4.8-10.8)
[2024-12-19 07:59] LABS: Venous Blood Gas Refer to POC result
[2024-12-19 08:00] LABS: VBG HCO3 30 mmol/L (22-26); VBG O2 % Saturation 98.0 %
[2024-12-19] MEDS: PHENobarbitaL sodium 130 MG/ML IM ONCE 283.4 MG IM (08:03)
--- OUTSIDE RECORDS SUMMARY | 2024-12-19 08:10 | XMS_ITS | Clinical Summary ---
Author Organization [employer] Address [address] [place] [address] Care Team Providers Care Associate Media Director Name Role Phone Unavailable Primary Care [...] Panel 1966 SDOH Screening 1966 Sigmoidoscopy 1966 Disability Screening 1966 Alcohol/Substance Use Screening 1978 Tobacco Screening 1978 Hepatitis C Screening 1984 DTaP/Tdap/Td Vaccines (1 - Tdap) 1985 Hepatitis B Vaccines (1 of 3 - 19+ 3-dose series) 1985 Pneumococcal Vaccine: 50+ Ye ars (1 of 1 - PCV) 2016 Zoster Vaccines (1 of 2) 2016 COVID-19 Vaccine ( - 2023-2 5 season) 2024 Influenza Vaccine (#1) 2024 RSV Patients and Pa tients Aged 60 [...] patient's age to complete this topic Meningococcal B Vaccine Aged Out No l onger eligible based on patient's age to complete [...]
[2024-12-19 08:13] LABS: Alanine Aminotransferase 47 U/L (0-40); Albumin Level 3.6 g/dL (3.5-5.0); Alkaline Phosphatase 172 U/L (39-117); Anion Gap 16 (12-20); Aspartate Amino Transferase 94 U/L (5-37); Blood Urea Nitrogen 11 mg/dL (9-16); COVID-19 Test Negative (Negative); Calcium 8.5 mg/dL (8.4-10.2); Carbon Dioxide 28 mmol/L (22-29); Chloride 100 mmol/L (96-108); Creatinine Clr Calc Pharmacy 141.1; Estimated Glomerular Filt Rate > 60; IDNOW Serial# 152EDE1D; IDNOW Serial# 16C4AD1C; Influenza B2 Negative (Negative); Potassium 3.7 mmol/L (3.3-5.1); Sodium 140 mmol/L (135-145); Total Protein 8.7 g/dL (6.5-8.0)
[2024-12-19] MEDS: vancomycin/NS 2,000 MG/500 ML PLAST..BAG 250 MG IV (08:16)
[2024-12-19] MEDS: Albuterol Sulfate 2.5 MG, Albuterol/Iprat 2.5/0.5MG 3 ML 3 ML INHALE (08:50)
--- NOTE | 2024-12-19 09:18 | P.HPHOSP_ITS ---
History of Present Illness Date of Service: 12/19/24 Attending physician on admission: Celia Garcia Chief Complaint: leg swelling, sob This is a 59-year-old male with a history of alcohol use disorder, cocaine abuse who presents to the emergency department with multiple complaints. Patient reports 3 weeks of shortness of breath with dry cough, associated sore throat for the past 2 weeks. He says ?everyone has been sick, including his 2 roommates. He denies any fever or chills. He was last admitted in May of 2024 for left lower extremity wound infection, at that time MRI was negative for osteomyelitis, he was discharged home with oral antibiotics. He states that he was never able to get these antibiotics. He has not seen any doctor since discharge from the hospital. He reports increased redness and swelling and pain of his left leg. He reports lower extremity swelling. He has been drinking from the time he wakes up to the time he goes to bed, typically drinks Four Alexandru, an average of 6 per day in addition to 'whatever hard alchol he can get his hands on. He smokes tobacco as well as crack cocaine. He denies heroin use. Today in the emergency department his ESR was elevated at 77 and CRP was up to 7.88. ETOH level was 187, last drink prior to arrival. LFTs were elvevated. CXR showed acute on chronic airspace disease with superimposed mild interstitial lung edema not excluded. X-ray of the tibia/fibula showing stable cortical thickening involving the mid shafts of the tibia and fibula, diffuse soft tissue swelling. DVT study was negative for acute DVT but showing left inguinal and popliteal lymphadenopathy suspicious for neoplasm. Patient was treated with broad-spectrum antibiotics, breathing treatments, IV steroids and was started on phenobarbital protocol. Review of Systems 2 Review of Systems: Yes all other systems are reviewed and are negative Constitutional: Constitutional: Denies chills and Denies fever(s) ENT: Reports sore throat Cardiovascular: Cardiovascular: Denies chest pain, Denies claudication and Reports dyspnea Respiratory: Respiratory: Reports cough and Reports dyspnea [facility] Medical History Alcohol abuse Tobacco use disorder Polysubstance use disorder Social History Household Members: None Housing: Apartment Do you presently have visiting nurse or other home services: No Alcohol intake: current Alcohol intake frequency: 0-2 drinks per day Alcohol type: hard liquor Patient Tobacco Use Status: Current everyday Tobacco user Tobacco use type: Cigarette Cigarette Packs Per Day: 0.5 Cigarettes Per Day: 10.0 Smoked in Last 30 Days: Yes e-Cigarette/Vaping Use: Never Used Use of substances other than those prescribed or required for medical reasons: Yes Substance Use Type: Crack/Cocaine Advance Directives: No Advance Directives Information Provided: No service: No Meds Allergies Allergy/AdvReac Type Severity Reaction Status Date / Time No Known Allergies Allergy Verified 12/19/24 07:18 Active Medications: Current Medications Vancomycin HCl (Vancomycin/Ns) 2,000 mg in 500 mls @ 250 mls/hr IV ONCE ONE Stop: 12/19/24 09:39 Last Admin: 12/19/24 08:16 Dose: 250 mls/hr Pharmacy Consult (Consult Rx Etoh Phenob Im/Po) 1 each MISCELLANE ONCE PRN; Protocol PRN Reason: Consult order Phenobarbital (Phenobarbital 15 Mg Tablet) 45 mg PO BID [facility]; Protocol Stop: 12/21/24 09:01 Phenobarbital (Phenobarbital 30 Mg Tablet) 30 mg PO BID [facility]; Protocol Stop: 12/23/24 09:01 Phenobarbital (Phenobarbital 30 Mg Tablet) 30 mg PO DAILY [facility]; Protocol Stop: 12/25/24 09:01 Phenobarbital Sodium (Phenobarbital Sodium 130 Mg/Ml Vial Im Q3hx2) 211.9 mg IM Q3H [facility]; Protocol Stop: 12/19/24 14:01 Home Medications ?Medication ?Instructions ?Recorded ?Confirmed ?Last Taken ?Type methadone 10 mg/mL oral 95 mg PO DAILY 12/19/2411/2212/18/24 History concentrate (Methadone Intensol) Physical Exam 2 Vital Signs and Narrative: Vital Signs: Last Vital Signs Temp 97.6 F 12/19/24 07:12 Pulse 67 12/19/24 08:43 Resp 21 H 12/19/24 08:43 Pulse Ox 95 12/19/24 07:12 O2 Del Method Room Air 12/19/24 07:12 BMI result Body Mass Index 39.1 Const: General: alert, awake, intoxicated appearing and poor hygiene N utritional Appearance: obese Orientation/consciousness: patient oriented x3 Resp: Other: no wheeze Effort & Inspection: normal respiratory effort, able to speak in complete sentences, no respiratory distress and no use of accessory muscles Cardio: Rate: regular rate GI: Inspection: No distended Palpation (GI): Soft to palpation and nontender Skin: Other: left leg numerous scabs/scars covering arms and legs Neuro: General: patient oriented x3, moves all extremities and CN's II-XI intact bilaterally Results Labs 12/19/24 07:44 12/19/24 07:44 Labs: Laboratory Results - last 24 hr 12/19/24 12/19/24 07:44 07:55 MCV 99.5 H MCH 32.3 MCHC 32.5 RDW 13.8 Plt Count 296 MPV 9.4 Immature Gran % (Auto) 0.4 Neut % (Auto) 67.3 Lymph % (Auto) 17.2 L [place] % (Auto) 12.5 H Eos % (Auto) 2.1 Baso % (Auto) 0.5 Lymph # (Auto) 1.3 [place] # (Auto) 1.0 Eos # (Auto) 0.2 Baso # (Auto) 0.0 Abs Immat Gran (auto) 0.03 Absolute Neuts (auto) 5.2 Absolute Nucleated RBC 0.000 Nucleated RBC % (auto) 0.0 ESR 77 H VBG pH 7.48 H VBG pCO2 41 VBG pO2 87 VBG HCO3 30 H VBG O2 Saturation 98.0 VBG Base Excess 6.6 Anion Gap 16 Estim Creat Clear Calc 141.1 Estimated GFR > 60 Random Glucose 71 Lactic Acid 1.7 Calcium 8.5 Total Bilirubin 0.5 AST 94 H ALT 47 H Alkaline Phosphatase 172 H C-Reactive Protein 7.88 H Total Protein 8.7 H Albumin 3.6 Ethyl Alcohol 187 COVID-19 (DIGNA) Negative COVID-19 Clin Com See Note Influenza Type A (OMA) Negative Influenza Type B (OMA) Negative Influenza A & B Note See Note Imaging Radiologist's Impressions: Impressions Venous Duplex 12/19/24 08:16 IMPRESSION: 1. No evidence of acute DVT in the left lower extremity. 2. Left inguinal and popliteal lymphadenopathy. Findings are suspicious for neoplasm. Ultrasound-guided fine-needle aspiration to be considered. Electronically signed by: Stanley Desir MD 12/19/2024 08:41 AM EDT RP Tibia/Fibula X-Ray 12/19/24 08:30 IMPRESSION: Diffuse soft tissue swelling. Stable cortical thickening involving the mid shafts of the tibia and fibula. No plain film evidence of osteomyelitis. If this remains a clinical concern, three-phase bone scan or MRI could be performed. Electronically signed by: Stanley Desir MD 12/19/2024 08:54 AM EDT RP Chest X-Ray 12/19/24 08:34 IMPRESSION: Acute on chronic airspace disease. Superimposed mild interstitial lung edema cannot be excluded. Electronically signed by: Stiven Candelaria MD 12/19/2024 08:52 AM EDT RP Assessment and Plan (1) Alcohol withdrawal: Qualifiers: Complication of substance-induced condition: uncomplicated Qualified Code(s): F10.930 - Alcohol use, unspecified with withdrawal, uncomplicated Status: Acute (2) Polysubstance use disorder: Status: Acute (3) Cellulitis: Qualifiers: Laterality: left Site of cellulitis: extremity Site of cellulitis of extremity: lower extremity Qualified Code(s): L03.116 - Cellulitis of left lower limb Status: Acute (4) Wound infection: Status: Acute Plan This is a 59yo M with polysubstance abuse on methadone, AUD, tobacco abuse admitted for purulent LLE wound infection/cellulitis at site of prior skin graft wound infection/cellulitis concern for osteomyelitis previous MRI in May negative for osteo however CRP and ESR now substantially higher - will check MRI continue vanco + zosyn follow blood cultures Wound Care consult ID consult-will defer MRI to ID L groin lymph node, increased since 09/20/23 DVT study again showing increased lymph nodes with concern for neoplasm MRI pelvis may - showing nonspecific lymphadenopathy, no enhancing URI/pharyngitis check RPP check strep likely underlying COPD - outpatient PFTs recommended symptomatic support AUD with acute alcohol intoxication with concern for impending withdrawal phenobarbital taper thiamine, folic acid Recovery Team consult polysubstance abuse [cocaine + fentanyl] tox screen pending continue methadone Recovery Team consult noted apnea in ED o2 to keep sats above 90% overnight oximetry test elevated LFTs likely due to etoh use trend levels tobacco abuse Smoking cessation advised NRT Morbid obesity BMI 39.1 VTE ppx heparin Patient will likely require 2 midnight stay in the hospital for management of wound infection/cellulitis with concern for osteomyelitis Quality Stroke Does the patient have a stroke diagnosis?: No VTE Prior VTE?: No VTE Risk Level:: Medical - moderate - high VTE Device Contraindication: Treatment Not Indicated VTE Drug Contraindication: N/A - Med Ordered
[2024-12-19 09:43] LABS: Magnesium 1.8 mg/dL (1.6-2.6)
--- NOTE | 2024-12-19 10:12 | PHA.PROG ---
Admission Date/Time: December 19, 2024 09:25 Indication: SKIN Weight in k.202 kg Adjusted body weight in Kg: [place] body weight in Kg: Obesity Dosing Indication % IBW: Serum Creatinine - Last 168 Hours 12/19/24 07:44 Creatinine 0.73 Estimated CrCl and GFR - Last 168 Hours 12/19/24 07:44 Estim Creat Clear Calc 141.1 Estimated GFR > 60 Vancomycin Loading Dose: 2000 MG Current Vancomycin Dosing Regimen: 1250 MG Q12H Vancomycin Monitoring using AUC goal of 400 - 600 range with trough as surrogate marker: HXB=478 TROUGH=14.7 Date and Time for next Vancomycin Level to be drawn: 12/20/24 @1400 Pharmacist Comments on Vancomycin Plan: Vancomycin dosing will take advantage of [employer] as a clinical decision support tool that uses Bayesian modeling to calculate individual patient's pharmacokinetic parameters and forecast the patient's drug concentration time course with the target goal AUC 24 range of 400 - 600 mg/L/hr.
--- NOTE | 2024-12-19 10:22 | PHA.MEDREC ---
Addendum entered by Cece Concepcion RPh 12/19/24 10:49: reviewed by elizabeth Original Note: Pharmacy Consult ? Medication Reconciliation Pharmacy has completed the medication reconciliation. Spoke with pt and he confirmed he is not taking anything for at home medications at this time.
[2024-12-19 10:23] LABS: NT Pro B Type Natriuretic Pept 140.6 pg/mL (<300)
[2024-12-19] MEDS: PHENobarbitaL sodium 130 MG/ML VIAL IM Q3Hx2 211.9 MG IM ×2 (10:52→15:11)
[2024-12-19] MEDS: Nicotine 14 MG PATCH.TD24 TRANSDERMA (10:53)
--- NOTE | 2024-12-19 11:57 | MHC.RECOVRN ---
Addendum entered by Amelia Duncan RN 12/19/24 15:41: Late entry: TW originally met with pt at 11:45am. Pt confirmed he receives methadone at [facility] and took his dose of 95mg this morning, prior to admission. Original Note: Pt reports receiving methadone dosing at [facility]. T/W called [facility] and confirmed last dose of 95mg was administered 12/17 @ 11:28. Pt was provided 6 take homes per BRIANA Cornejo. Information documented and relayed to pharmacy.
--- NOTE | 2024-12-19 12:09 | HE.PHANOTE ---
Re Methadone Pt receives 95mg from [facility] and was give n a dose and 6 take home bottles on 12/17/24 @7298
[2024-12-19 13:21] LABS: Chlamydia pneumoniae PCR Not Detected (Not Detect.); Coronavirus 229E PCR Not Detected (Not Detect.); Coronavirus HKU1 PCR Not Detected (Not Detect.); Coronavirus NL63 PCR Not Detected (Not Detect.); Coronavirus OC43 PCR Not Detected (Not Detect.); RSV PCR Not Detected (Not Detect.); Rhino/Enterovirus PCR Not Detected (Not Detect.)
[2024-12-19 13:25] LABS: SARS-CoV-2 PCR Not Detected (Not Detect.)
[2024-12-19 13:27] LABS: Influenza A H1 PCR Not Detected (Not Detect.); Influenza A H1-2009 PCR Not Detected (Not Detect.); Influenza A H3 PCR Not Detected (Not Detect.)
--- NOTE | 2024-12-19 13:40 | PC.NURSE ---
Placed on oxygen via nasal cannula, reporting SOB. Pt is twitchy/restless, 87% on room air with good pleth. Placed on 2LPM with positive effect, but requires reminders to take a deep breath. Brief episodes of apnea, sleepy. Arousable, but brief. Methadone removed from Pyxis but instructed to hold administration at this time. Hospitalist (Jenny) notified to come to bedside for re-evaluation. ABG to be drawn STAT.
[2024-12-19 13:52] LABS: Cannabinoid Screen Urine Not Detected (Not Detect)
--- NOTE | 2024-12-19 13:53 | PC.NURSE ---
Jenny (hospitalist) to bedside to evaluate the patient. Instructed to hold Methadone and Phenobarbital dose at this time. Also instructed to hold ordered ABG. Pt is eating at this time, okayed by Jenny. Awaiting further instruction from Marivel Walker (addiction medicine) regarding withdrawal management and medication administration.
--- NOTE | 2024-12-19 14:14 | PC.NURSE ---
Instructed to hold Methadone, administer Phenobarb as ordered, per Marivel Walker.
--- NOTE | 2024-12-19 15:14 | HO.WOUND ---
Wound Consult: Initial 59yr old male admitted to [facility] [place] [facility] on 12/19/24 - See progress notes and H&P for detailed history. Wound consult placed for left leg. Patient agreeable to assessment and photo documentation. Patient with chronic wound to left leg, like venous in nature, per chart review history of failed grafting to this area. patient reports increased drainage and swelling to wound. patient reports that he has been too drunk recently and has not been using any dressings on his wound. Large area of wounding, full thickness to anterior aspect of the left lower leg, superior to wound is an area of localized swelling and redness with mild fluctuance. Concern for fluid collection - TT to [facility]ON[facility] Tavarez for consult to general surgery/further imaging to rule out fluid collection. Lateral and distal lower leg with dry red and superficial appearing wounding - likely some component of MASD in the setting of increased drainage from the wound. Patient complaining of anxiety and feeling hot, direct care RN notified, cool cloth provided. Left leg Etiology: Venous stasis ulcer Measurements: 9cm x 15cm x 0.2cm Wound Bed: dry red/yellow Drainage / Odor: no active drainage - drainage appears to be serosanguineous, no odor noted Edges: ? irregular Jena wound: ? No Induration noted, small area of swelling and fluctuance noted superior to wound on anterior aspect, redness and swelling noted to leg. Pain: none Goals of Treatment: ? cuticerin oil emulsion contact layer- add minimal moisture, allow drainage through, atraumatic removal- followed by durafiber for antimicrobial and drainage absorption Recommendations: Left leg: cleanse with normal saline, apply cuticerin oil emulsion contact layer, cover with durafiber, followed by ABD pad, wrap with kerlix, change daily and PRN. Re-consult wound care Nurse for wound deterioration or wound changes.
--- NOTE | 2024-12-19 16:05 | HO.ADDICT_ITS ---
History of Present Illness Date of Service: 12/19/2024 Chief Complaint: cellulitis, etoh withdrawal Reason for Consult: AUD -acute withdrawal Sources of Information: patient interviewed and chart reviewed HPI Narrative: Patient is a 59 year old male with history of AUD, DAMIAN, and COPD. Presented to [facility] [place] ED c/ SOB, alcohol withdrawal and lower leg pain-- secondary to recurrent cellulitis of lower leg graft. Patient medically admitted and initiated on phenobarbital for alcohol withdrawal. Patient seen in room 27 of main ED. Sleeping upon approach, but woke easily to voice. States he is not good and referenced his leg. Regarding alcohol use, he states he has been drinking at least 4, 4 lokos (malt liquor) daily and some shots when he can get them. He appears unkempt, tremulous, and mildly diaphoretic. He has received 2 of three phenobarbital loading doses. Patient engaged in treatment for OUD Met with technology manager -reports he is engaged with [facility] Methadone dose verified at 95mg QD, and patient reported taking his dose this morning. patient seen again late this afternoon after RN reported he wanted to leave. Patient seen again in ED. He was reporting significant anxiety/panic sx. technology manager present and providing therapeutic support. Patient stating he did not receive his methadone this morning, he had his methadone bottles with him-t/w counted empty bottles, with patient and able to verify that he did take today's dose. RN then took bottles to send to pharmacy. Patient stating that he just wants to go to sleep--c/o sore throat and cough. patient appropriate, in behavioral control, verbalizing anxiety and needs appropriately. Medical Evaluation Reviewed: Yes Review of Systems Constitutional: Reports as per HPI Diagnostics Vital Signs (24Hr): Vital Signs - 24 hr 12/19/24 07:12 12/19/24 08:43 12/19/24 11:38 Temperature 97.6 F 97.4 F Pulse Rate 80 67 72 Respiratory Rate 18 21 H 14 Blood Pressure 151/76 H Pulse Oximetry 95 94 Oxygen Delivery Method Room Air Room Air 12/19/24 13:28 Temperature 98.5 F Pulse Rate 78 Respiratory Rate 19 Blood Pressure 158/97 H Pulse Oximetry 95 Oxygen Delivery Method Room Air BMI result Body Mass Index 39.1 Labs 12/19/24 07:44 12/19/24 07:44 Labs: Laboratory Results - last 48 hr 12/19/24 12/19/24 12/19/24 07:44 07:46 07:55 WBC 7.7 RBC 4.24 L Hgb 13.7 L Hct 42.2 MCV 99.5 H MCH 32.3 MCHC 32.5 RDW 13.8 Plt Count 296 MPV 9.4 Immature Gran % (Auto) 0.4 Neut % (Auto) 67.3 Lymph % (Auto) 17.2 L [place] % (Auto) 12.5 H Eos % (Auto) 2.1 Baso % (Auto) 0.5 Lymph # (Auto) 1.3 [place] # (Auto) 1.0 Eos # (Auto) 0.2 Baso # (Auto) 0.0 Abs Immat Gran (auto) 0.03 Absolute Neuts (auto) 5.2 Absolute Nucleated RBC 0.000 Nucleated RBC % (auto) 0.0 ESR 77 H VBG pH 7.48 H VBG pCO2 41 VBG pO2 87 VBG HCO3 30 H VBG O2 Saturation 98.0 VBG Base Excess 6.6 Sodium 140 Potassium 3.7 Chloride 100 Carbon Dioxide 28 Anion Gap 16 BUN 11 Creatinine 0.73 Estim Creat Clear Calc 141.1 Estimated GFR > 60 Random Glucose 71 Lactic Acid 1.7 Calcium 8.5 Magnesium 1.8 Total Bilirubin 0.5 AST 94 H ALT 47 H Alkaline Phosphatase 172 H C-Reactive Protein 7.88 H NT-Pro-B Natriuret Pep 140.6 Total Protein 8.7 H Albumin 3.6 Urine Opiates Screen Ur Buprenorphine Scrn Ur Oxycodone Screen Urine Methadone Screen Urine Fentanyl Screen Ur Barbiturates Screen Ur Phencyclidine Scrn Ur Amphetamines Screen U Benzodiazepines Scrn Urine Cocaine Screen U Marijuana (THC) Screen Ethyl Alcohol 187 Respiratory Panel Noe Adenovirus (Rapid PCR) B.pert (TEM-PCR) B.parapertussis DNA PCR C. pneumoniae DNA (PCR) Coronavirus OC43 (PCR) Coronavirus HKU1 (PCR) Coronavirus 229E (PCR) COVID-19 (DIGNA) Negative COVID-19 Clin Com See Note Coronavirus NL63 (PCR) Human Metapneumovir PCR Influenza Type A (OMA) Negative Influenza A (RT-PCR) Influenza A (H1) PCR Influ A (H1/09) PCR Influenza A (H3) PCR Influenza Type B (OMA) Negative Influenza B (RT-PCR) Influenza A & B Note See Note M. pneumoniae (PCR) Parainfluenza 1 (PCR) Parainfluenza 2 (PCR) Parainfluenza 3 (PCR) Parainfluenza 4 (PCR) RSV (PCR) Entero/Rhino (PCR) SARS-CoV-2 RNA (RT-PCR) 12/19/24 12/19/24 11:09 13:31 WBC RBC Hgb Hct MCV MCH MCHC RDW Plt Count MPV Immature Gran % (Auto) Neut % (Auto) Lymph % (Auto) [place] % (Auto) Eos % (Auto) Baso % (Auto) Lymph # (Auto) [place] # (Auto) Eos # (Auto) Baso # (Auto) Abs Immat Gran (auto) Absolute Neuts (auto) Absolute Nucleated RBC Nucleated RBC % (auto) ESR VBG pH VBG pCO2 VBG pO2 VBG HCO3 VBG O2 Saturation VBG Base Excess Sodium Potassium Chloride Carbon Dioxide Anion Gap BUN Creatinine Estim Creat Clear Calc Estimated GFR Random Glucose Lactic Acid Calcium Magnesium Total Bilirubin AST ALT Alkaline Phosphatase C-Reactive Protein NT-Pro-B Natriuret Pep Total Protein Albumin Urine Opiates Screen POSITIVE H Ur Buprenorphine Scrn Not Detected Ur Oxycodone Screen Not Detected Urine Methadone Screen Positive H Urine Fentanyl Screen POSITIVE H Ur Barbiturates Screen POSITIVE H Ur Phencyclidine Scrn Not Detected Ur Amphetamines Screen Not Detected U Benzodiazepines Scrn Not Detected Urine Cocaine Screen POSITIVE H U Marijuana (THC) Screen Not Detected Ethyl Alcohol Respiratory Panel Noe See Note Adenovirus (Rapid PCR) Not Detected B.pert (TEM-PCR) Not Detected B.parapertussis DNA PCR Not Detected C. pneumoniae DNA (PCR) Not Detected Coronavirus OC43 (PCR) Not Detected Coronavirus HKU1 (PCR) Not Detected Coronavirus 229E (PCR) Not Detected COVID-19 (DIGNA) COVID-19 Clin Com Coronavirus NL63 (PCR) Not Detected Human Metapneumovir PCR Not Detected Influenza Type A (OMA) Influenza A (RT-PCR) Not Detected Influenza A (H1) PCR Not Detected Influ A (H1/) PCR Not Detected Influenza A (H3) PCR Not Detected Influenza Type B (OMA) Influenza B (RT-PCR) Not Detected Influenza A & B Note M. pneumoniae (PCR) Not Detected Parainfluenza 1 (PCR) Not Detected Parainfluenza 2 (PCR) Not Detected Parainfluenza 3 (PCR) Not Detected Parainfluenza 4 (PCR) Not Detected RSV (PCR) Not Detected Entero/Rhino (PCR) Not Detected SARS-CoV-2 RNA (RT-PCR) Not Detected Imaging Radiology Impressions: ITS Impressions Venous Duplex 12/19/24 08:16 IMPRESSION: 1. No evidence of acute DVT in the left lower extremity. 2. Left inguinal and popliteal lymphadenopathy. Findings are suspicious for neoplasm. Ultrasound-guided fine-needle aspiration to be considered. Electronically signed by: Stanley Desir MD 12/19/2024 08:41 AM EDT RP Tibia/Fibula X-Ray 12/19/24 08:30 IMPRESSION: Diffuse soft tissue swelling. Stable cortical thickening involving the mid shafts of the tibia and fibula. No plain film evidence of osteomyelitis. If this remains a clinical concern, three-phase bone scan or MRI could be performed. Electronically signed by: Stanley Desir MD 12/19/2024 08:54 AM EDT RP Chest X-Ray 12/19/24 08:34 IMPRESSION: Acute on chronic airspace disease. Superimposed mild interstitial lung edema cannot be excluded. Electronically signed by: Stiven Candelaria MD 12/19/2024 08:52 AM EDT RP Mental Status Exam Mental Status Exam Patient Appearance: Unkempt Level of Consciousness: Awake, Appropriate and Alert Patient Behavior: Appropriate Mood Description: Anxious Affect Description: Anxious Speech Pattern: Clear Thought Process: Intact Thought Content: positive for Intact Judgement: Good Medications Medications Current Medications Acetaminophen (Acetaminophen 325 Mg Tablet) 650 mg PO Q6H PRN PRN Reason: Pain, Mild 1-3,fever,headache Benzocaine (Throat Lozenge, Medicated Lozenge) 1 lozenge MUCOUS MEM Q2H PRN PRN Reason: Sore Throat Calcium Carbonate (Calcium Carbonate 750 Mg Tab.Chew) 750 mg PO Q4H PRN PRN Reason: Heartburn Folic Acid (Folic Acid 1 Mg Tablet) 1 mg PO DAILY KALEY Guaifenesin/Dextromethorphan (Guaifenesin Dm 100/10/5 Ml 5 Ml Syrup) 5 ml PO Q6H PRN PRN Reason: Cough Heparin Sodium (Porcine) (Heparin Sodium,Porcine 5,000 Unit/Ml Vial) 5,000 unit SUBCUT Q12H [facility] Last Admin: 12/19/24 10:52 Dose: 5,000 unit Piperacillin Sod/Tazobactam (Sod 4.5 gm/ Sodium Chloride) 100 mls @ 200 mls/hr IV Q8H [facility] Vancomycin HCl 1,250 mg/ (Sodium Chloride) 250 mls @ 166.667 mls/hr IV Q12H [facility] Magnesium Hydroxide (Milk Of Magnesia 30 Ml Oral.Susp) 30 ml PO DAILY PRN PRN Reason: Constipation Melatonin (Melatonin 3 Mg Tablet) 6 mg PO BEDTIME PRN PRN Reason: Insomnia Methadone HCl (Methadone Hcl 20 Mg/2 Ml Oral.Conc) 95 mg PO DAILY [facility] Last Admin: 12/19/24 14:07 Dose: Not Given Nicotine (Nicotine 14 Mg Patch.Td24) 14 mg TRANSDERMA DAILY [facility] Last Admin: 12/19/24 10:53 Dose: 14 mg Pharmacy Consult (Consult Rx Etoh Phenob Im/Po) 1 each MISCELLANE ONCE PRN; Protocol PRN Reason: Consult order Pharmacy Consult (Consult Rx Vancomycin Dosing) 1 each MISCELLANE DAILY PRN PRN Reason: Consult order Phenobarbital (Phenobarbital 15 Mg Tablet) 45 mg PO BID [facility]; Protocol Stop: 12/21/24 09:01 Phenobarbital (Phenobarbital 30 Mg Tablet) 30 mg PO BID [facility]; Protocol Stop: 12/23/24 09:01 Phenobarbital (Phenobarbital 30 Mg Tablet) 30 mg PO DAILY [facility]; Protocol Stop: 12/25/24 09:01 Sodium Chloride (0.9 % Sodium Chloride Flush 3 Ml Syringe) 3 ml IVFLUSH QSHIFT [facility] Thiamine HCl (Thiamine Hcl 100 Mg Tablet) 100 mg PO DAILY [facility] Allergies Allergies Allergy/AdvReac Type Severity Reaction Status Date / Time No Known Allergies Allergy Verified 12/19/24 07:18 Assessment & Plan Assessment & Plan (1) Alcohol withdrawal: Qualifiers: Complication of substance-induced condition: uncomplicated Qualified Code(s): F10.930 - Alcohol use, unspecified with withdrawal, uncomplicated Status: Acute Code(s): F10.939 - Alcohol use, unspecified with withdrawal, unspecified Assessment and Plan: * discussed case with attending provider--additional dose of phenobarbital ordered for withdrawal * PRN gabapentin for anxiety * mirtazipine ordered for bedtime * will follow up in the AM (2) Opioid use disorder: Status: Acute Code(s): F11.90 - Opioid use, unspecified, uncomplicated Assessment and Plan: * methadone to resume in the AM * connected to [facility] --ensure patient gets take home bottles back at time of discharge Total time managing care of this patient today _50___ minutes. PMFSH Past Medical History Medical History Alcohol abuse Tobacco use disorder Polysubstance use disorder Social History Social History Household Members: None Housing: Apartment Do you presently have visiting nurse or other home services: No Alcohol intake: current Alcohol intake frequency: 0-2 drinks per day Alcohol type: hard liquor Patient Tobacco Use Status: Current everyday Tobacco user Tobacco use type: Cigarette Cigarette Packs Per Day: 0.5 Cigarettes Per Day: 10.0 Smoked in Last 30 Days: Yes e-Cigarette/Vaping Use: Never Used Use of substances other than those prescribed or required for medical reasons: Yes Substance Use Type: Crack/Cocaine Advance Directives: No Advance Directives Information Provided: No service: No
[2024-12-19] MEDS: guaiFENesin DM 100/10/5 ML 5 ML SYRUP PO (16:30)
[2024-12-19] MEDS: Throat Lozenge, Medicated LOZENGE 1 LOZENGE MUCOUS MEM (16:30)
[2024-12-19] MEDS: 0.9 % Sodium Chloride Flush 3 ML SYRINGE IVFLUSH ×2 (16:31→19:44)
[2024-12-19] MEDS: Sodium Chloride 0.65 % Nasal 44 ML SPRBTL 1 SPRAY NOSTRIL-B (17:50)
[2024-12-19] MEDS: diazePAM 10 MG/2 ML CARTRIDGE IVPUSH (20:10)
[2024-12-19 20:28] LABS: Glucose, Whole Blood 207 mg/dL (60-115)
[2024-12-19] MEDS: Albuterol/Iprat 2.5/0.5MG 3 ML AMPUL.NEB INHALE (20:46)
--- NOTE | 2024-12-19 21:05 | P.EN_ITS ---
Event Note Date of Service: 12/19/24 Event Note: MANAGER ANALYSIS activated. Patient fell. RN witnessed the fall. No head trauma. Pt was able to stand up and trasferred the bed. He is alert. NC in place, 4L/min. Cardiopulmonary exam remarkable for bilateral end expiratory wheezes. Bronchodilator therapy stat ordered with DuoNeb and Solu-Medrol 125 mg IV. Patient recently received Valium and phenobarbital IM for alcohol withdrawal. Time Spent With Patient Time: Total time managing care of this patient today ____ minutes.
[2024-12-20] VITALS (10 sets, daily range): BP systolic 136–178; BP diastolic 74–93; PULSE 58–71; RESP 16–20; TEMP 36.4–37.1; O2SAT 93–96
--- NOTE | 2024-12-20 03:06 | PC.NURSE ---
Pt up to floor from ED. DRIVER STARTING GATE and RN to bedside to settle pt. Pt impulsive, pacing around room, not redirectable. CIWA score of 22, MD notified. Pt sitting on side of bed, medicated per APR. Pt c/o anxiety attack. Pt leaned forward, landed on hands on knees before falling over onto right side. Witnessed by primary nurse, no head strike. Pt lost consciousness briefly and began snoring. Rapid response initiated immediately. Upon staff arrival, pt was drowsy but awake. Oxygen via NC added. POC and vitals taken. MD to bedside. Pt assisted back to bed per MD. Pt noted to be wheezy upon auscultation. New orders, per MD. Safety precautions in place. Camera in room. Call glez within reach.
[2024-12-20] MEDS: Albuterol Sulfate (0.083%) 2.5 MG/3 ML VIAL.NEB INHALE (04:03)
[2024-12-20 07:40] LABS: Hematocrit 39.0 % (42.0-52.0); Hemoglobin 12.5 g/dl (14.0-18.0); Imm Gran Abs Auto 0.02 X10*3/uL (0.00-0.03); Imm Gran Pct Auto 0.3 % (0.0-0.4); Lymphocytes Absolute Auto 0.2 X10*3/uL (1.2-4.9); MANUAL DIFF FLAG SCAN; Mean Corpuscular HGB Conc 32.1 g/dl (31.0-36.0); Mean Corpuscular Hemoglobin 32.4 pg (27.0-33.0); Mean Corpuscular Volume 101.0 fL (80.0-98.0); NRBC Abs Auto 0.020 X10*3/uL (0.0-0.012); NRBC Pct Auto 0.3 /100WBC (0.0-0.2); Platelet Count 241 X10*3/uL (160-400); Red Blood Count 3.86 X10*6/uL (4.60-5.80); SCAN SMEAR FLAG 1; White Blood Count 6.8 X10*3/uL (4.8-10.8)
[2024-12-20 07:55] LABS: Alanine Aminotransferase 61 U/L (0-40); Albumin Level 3.0 g/dL (3.5-5.0); Alkaline Phosphatase 149 U/L (39-117); Anion Gap 11 (12-20); Aspartate Amino Transferase 107 U/L (5-37); Blood Urea Nitrogen 9 mg/dL (9-16); Calcium 8.2 mg/dL (8.4-10.2); Carbon Dioxide 27 mmol/L (22-29); Chloride 100 mmol/L (96-108); Creatinine Clr Calc Pharmacy 148.7; Estimated Glomerular Filt Rate > 60; Potassium 3.7 mmol/L (3.3-5.1); Sodium 134 mmol/L (135-145); Total Protein 7.5 g/dL (6.5-8.0)
[2024-12-20] MEDS: 0.9 % Sodium Chloride Flush 3 ML SYRINGE IVFLUSH ×2 (08:19→20:40)
[2024-12-20] MEDS: Albuterol/Iprat 2.5/0.5MG 3 ML AMPUL.NEB INHALE ×4 (08:20→20:52)
--- NOTE | 2024-12-20 08:42 | P.PNIM_ITS ---
Subjective Subjective Date of Service: 12/20/24 Interval History: copd ,cellulitis Review of Systems seems similar overnight events noted Review of Systems: Yes all other systems are reviewed and are negative Physical Exam 2 Exam: Exam: Appearance: Alert.? Oriented X3.? tramlous but improvin cvs: rrr, [id number] . res: clear to auscultation ,no rhonchii or wheezing abd: no rebound or guarding ,nt, bs present. ext pulses present , no cyanosis . neuro: axo3 , nonfocal. Vital Signs: Vital Signs: Last Vital Signs Temp 98.1 F 12/20/24 07:25 Pulse 61 12/20/24 08:21 Resp 16 12/20/24 08:21 BP 173/86 H 12/20/24 07:25 Pulse Ox 94 12/20/24 07:25 O2 Del Method Nasal Cannula 12/20/24 07:25 O2 Flow Rate 2 12/20/24 07:25 Oxygen Flow Rate 2 12/19/24 21:20 BMI result Body Mass Index 35.6 Objective Data Active Medications Acetaminophen (Acetaminophen 325 Mg Tablet) 650 mg PO Q6H PRN PRN Reason: Pain, Mild 1-3,fever,headache Albuterol Sulfate (Albuterol Sulfate (0.083%) 2.5 Mg/3 Ml Vial.Neb) 2.5 mg INHALE Q2H PRN PRN Reason: Shortness of Breath/Wheezing Last Admin: 12/20/24 04:03 Dose: 2.5 mg Documented By: AMANUEL Albuterol/Ipratropium (Albuterol/Iprat 2.5/0.5mg 3 Ml Ampul.Neb) 3 ml INHALE RQ4H WHILE AWAKE COUNT INCLUDES THE [facility] Last Admin: 12/20/24 08:20 Dose: 3 ml Documented By: SHANON Aspirin (Aspirin Enteric Coated 81 Mg Tablet.) 81 mg PO DAILY COUNT INCLUDES THE [facility] Benzocaine (Throat Lozenge, Medicated Lozenge) 1 lozenge MUCOUS MEM Q2H PRN PRN Reason: Sore Throat Last Admin: 12/19/24 16:30 Dose: 1 lozenge Calcium Carbonate (Calcium Carbonate 750 Mg Tab.Chew) 750 mg PO Q4H PRN PRN Reason: Heartburn Clonidine HCl (Clonidine Hcl 0.1 Mg Tablet) 0.1 mg PO BID PRN; Protocol PRN Reason: withdrawal Last Admin: 12/19/24 17:23 Dose: 0.1 mg Documented By: MARIELENA Folic Acid (Folic Acid 1 Mg Tablet) 1 mg PO DAILY COUNT INCLUDES THE [facility] Gabapentin (Gabapentin 100 Mg Capsule) 100 mg PO TID PRN PRN Reason: anxiety/restlessness Last Admin: 12/19/24 16:30 Dose: 100 mg Documented By: MARIELENA Guaifenesin/Dextromethorphan (Guaifenesin Dm 100/10/5 Ml 5 Ml Syrup) 5 ml PO Q6H PRN PRN Reason: Cough Last Admin: 12/19/24 16:30 Dose: 5 ml Documented By: MARIELENA Heparin Sodium (Porcine) (Heparin Sodium,Porcine 5,000 Unit/Ml Vial) 5,000 unit SUBCUT Q12H COUNT INCLUDES THE [facility] Last Admin: 12/19/24 20:10 Dose: Not Given Documented By: DUKE Non-Admin Reason: Patient Refused Piperacillin Sod/Tazobactam (Sod 4.5 gm/ Sodium Chloride) 100 mls @ 200 mls/hr IV Q8H COUNT INCLUDES THE [facility] Last Admin: 12/20/24 08:17 Dose: 200 mls/hr Documented By: LION Vancomycin HCl 1,250 mg/ (Sodium Chloride) 250 mls @ 166.667 mls/hr IV Q12H COUNT INCLUDES THE [facility] Last Infusion: 12/20/24 05:48 Dose: Infused Documented By: DUKE Thiamine HCl 100 mg/ Sodium (Chloride) 101 mls @ 202 mls/hr IV DAILY COUNT INCLUDES THE [facility] Doxycycline Hyclate 100 mg/ (Sodium Chloride) 250 mls @ 166.67 mls/hr IV Q12H COUNT INCLUDES THE [facility] Last Infusion: 12/19/24 22:29 Dose: Infused Documented By: DUKE Magnesium Hydroxide (Milk Of Magnesia 30 Ml Oral.Susp) 30 ml PO DAILY PRN PRN Reason: Constipation Melatonin (Melatonin 3 Mg Tablet) 6 mg PO BEDTIME PRN PRN Reason: Insomnia Last Admin: 12/19/24 19:44 Dose: 6 mg Documented By: DUKE Methadone HCl (Methadone Hcl 20 Mg/2 Ml Oral.Conc) 95 mg PO DAILY COUNT INCLUDES THE [facility] Last Admin: 12/19/24 14:07 Dose: Not Given Documented By: HO.ABLIAI Non-Admin Reason: Physician Held Med Mirtazapine (Mirtazapine 15 Mg Tablet) 15 mg PO BEDTIME COUNT INCLUDES THE [facility] Last Admin: 12/19/24 19:44 Dose: 15 mg Documented By: DUKE Nicotine (Nicotine 14 Mg Patch.Td24) 14 mg TRANSDERMA DAILY COUNT INCLUDES THE [facility] Last Admin: 12/19/24 10:53 Dose: 14 mg Documented By: MARIELENA Pharmacy Consult (Consult Rx Etoh Phenob Im/Po) 1 each MISCELLANE ONCE PRN; Protocol PRN Reason: Consult order Pharmacy Consult (Consult Rx Vancomycin Dosing) 1 each MISCELLANE DAILY PRN PRN Reason: Consult order Phenobarbital (Phenobarbital 15 Mg Tablet) 45 mg PO BID COUNT INCLUDES THE [facility]; Protocol Stop: 12/21/24 09:01 Last Admin: 12/19/24 20:09 Dose: 45 mg Documented By: DUKE Comments: ok to give per Tej Srinivasan MD Phenobarbital (Phenobarbital 30 Mg Tablet) 30 mg PO BID COUNT INCLUDES THE [facility]; Protocol Stop: 12/23/24 09:01 Phenobarbital (Phenobarbital 30 Mg Tablet) 30 mg PO DAILY COUNT INCLUDES THE [facility]; Protocol Stop: 12/25/24 09:01 Sodium Chloride (0.9 % Sodium Chloride Flush 3 Ml Syringe) 3 ml IVFLUSH QSHIFT COUNT INCLUDES THE [facility] Last Admin: 12/20/24 08:19 Dose: 3 ml Documented By: LION Sodium Chloride (Sodium Chloride 0.65 % Nasal 44 Ml Sprbtl) 1 spray NOSTRIL-B Q1H PRN PRN Reason: Dry Nasal Passages Last Admin: 12/19/24 17:50 Dose: 1 spray Documented By: MARIELENA Labs 12/20/24 06:50 12/20/24 06:50 Labs: Laboratory Results - last 24 hr 12/19/24 12/19/24 12/19/24 07:44 07:46 07:55 MCV MCH MCHC RDW Plt Count MPV Immature Gran % (Auto) Neut % (Auto) Lymph % (Auto) Gila % (Auto) Eos % (Auto) Baso % (Auto) Lymph # (Auto) Gila # (Auto) Eos # (Auto) Baso # (Auto) Abs Immat Gran (auto) Absolute Neuts (auto) Absolute Nucleated RBC Nucleated RBC % (auto) Smear Tech's Comments ESR 77 H VBG pH 7.48 H VBG pCO2 41 VBG pO2 87 VBG HCO3 30 H VBG O2 Saturation 98.0 VBG Base Excess 6.6 Anion Gap Estim Creat Clear Calc Estimated GFR POC Glucose Random Glucose Calcium Magnesium 1.8 Total Bilirubin Direct Bilirubin AST ALT Alkaline Phosphatase NT-Pro-B Natriuret Pep 140.6 Total Protein Albumin Urine Opiates Screen Ur Buprenorphine Scrn Ur Oxycodone Screen Urine Methadone Screen Urine Fentanyl Screen Ur Barbiturates Screen Ur Phencyclidine Scrn Ur Amphetamines Screen U Benzodiazepines Scrn Urine Cocaine Screen U Marijuana (THC) Screen Respiratory Panel Noe Adenovirus (Rapid PCR) B.pert (TEM-PCR) B.parapertussis DNA PCR C. pneumoniae DNA (PCR) Coronavirus OC43 (PCR) Coronavirus HKU1 (PCR) Coronavirus 229E (PCR) Coronavirus NL63 (PCR) Human Metapneumovir PCR Influenza A (RT-PCR) Influenza A (H1) PCR Influ A (H1/09) PCR Influenza A (H3) PCR Influenza B (RT-PCR) M. pneumoniae (PCR) Parainfluenza 1 (PCR) Parainfluenza 2 (PCR) Parainfluenza 3 (PCR) Parainfluenza 4 (PCR) RSV (PCR) Entero/Rhino (PCR) SARS-CoV-2 RNA (RT-PCR) Anti-Streptolysin Scrn 12/19/24 12/19/24 12/19/24 10:13 11:09 13:31 MCV MCH MCHC RDW Plt Count MPV Immature Gran % (Auto) Neut % (Auto) Lymph % (Auto) Gila % (Auto) Eos % (Auto) Baso % (Auto) Lymph # (Auto) Gila # (Auto) Eos # (Auto) Baso # (Auto) Abs Immat Gran (auto) Absolute Neuts (auto) Absolute Nucleated RBC Nucleated RBC % (auto) Smear Tech's Comments ESR VBG pH VBG pCO2 VBG pO2 VBG HCO3 VBG O2 Saturation VBG Base Excess Anion Gap Estim Creat Clear Calc Estimated GFR POC Glucose Random Glucose Calcium Magnesium Total Bilirubin Direct Bilirubin AST ALT Alkaline Phosphatase NT-Pro-B Natriuret Pep Total Protein Albumin Urine Opiates Screen POSITIVE H Ur Buprenorphine Scrn Not Detected Ur Oxycodone Screen Not Detected Urine Methadone Screen Positive H Urine Fentanyl Screen POSITIVE H Ur Barbiturates Screen POSITIVE H Ur Phencyclidine Scrn Not Detected Ur Amphetamines Screen Not Detected U Benzodiazepines Scrn Not Detected Urine Cocaine Screen POSITIVE H U Marijuana (THC) Screen Not Detected Respiratory Panel Noe See Note Adenovirus (Rapid PCR) Not Detected B.pert (TEM-PCR) Not Detected B.parapertussis DNA PCR Not Detected C. pneumoniae DNA (PCR) Not Detected Coronavirus OC43 (PCR) Not Detected Coronavirus HKU1 (PCR) Not Detected Coronavirus 229E (PCR) Not Detected Coronavirus NL63 (PCR) Not Detected Human Metapneumovir PCR Not Detected Influenza A (RT-PCR) Not Detected Influenza A (H1) PCR Not Detected Influ A (H1/09) PCR Not Detected Influenza A (H3) PCR Not Detected Influenza B (RT-PCR) Not Detected M. pneumoniae (PCR) Not Detected Parainfluenza 1 (PCR) Not Detected Parainfluenza 2 (PCR) Not Detected Parainfluenza 3 (PCR) Not Detected Parainfluenza 4 (PCR) Not Detected RSV (PCR) Not Detected Entero/Rhino (PCR) Not Detected SARS-CoV-2 RNA (RT-PCR) Not Detected Anti-Streptolysin Scrn 2330 H 12/19/24 12/20/24 20:23 06:50 MCV 101.0 H MCH 32.4 MCHC 32.1 RDW 13.9 Plt Count 241 MPV 9.8 Immature Gran % (Auto) 0.3 Neut % (Auto) 91.9 H Lymph % (Auto) 2.8 L Gila % (Auto) 4.9 Eos % (Auto) 0.0 Baso % (Auto) 0.1 Lymph # (Auto) 0.2 L Gila # (Auto) 0.3 Eos # (Auto) 0.0 Baso # (Auto) 0.0 Abs Immat Gran (auto) 0.02 Absolute Neuts (auto) 6.2 Absolute Nucleated RBC 0.020 H Nucleated RBC % (auto) 0.3 H Smear Tech's Comments VERIFIED ESR VBG pH VBG pCO2 VBG pO2 VBG HCO3 VBG O2 Saturation VBG Base Excess Anion Gap 11 L Estim Creat Clear Calc 148.7 Estimated GFR > 60 POC Glucose 207 H Random Glucose 245 H Calcium 8.2 L Magnesium Total Bilirubin 0.5 Direct Bilirubin 0.3 AST 107 H ALT 61 H Alkaline Phosphatase 149 H NT-Pro-B Natriuret Pep Total Protein 7.5 Albumin 3.0 L Urine Opiates Screen Ur Buprenorphine Scrn Ur Oxycodone Screen Urine Methadone Screen Urine Fentanyl Screen Ur Barbiturates Screen Ur Phencyclidine Scrn Ur Amphetamines Screen U Benzodiazepines Scrn Urine Cocaine Screen U Marijuana (THC) Screen Respiratory Panel Noe Adenovirus (Rapid PCR) B.pert (TEM-PCR) B.parapertussis DNA PCR C. pneumoniae DNA (PCR) Coronavirus OC43 (PCR) Coronavirus HKU1 (PCR) Coronavirus 229E (PCR) Coronavirus NL63 (PCR) Human Metapneumovir PCR Influenza A (RT-PCR) Influenza A (H1) PCR Influ A (H1/09) PCR Influenza A (H3) PCR Influenza B (RT-PCR) M. pneumoniae (PCR) Parainfluenza 1 (PCR) Parainfluenza 2 (PCR) Parainfluenza 3 (PCR) Parainfluenza 4 (PCR) RSV (PCR) Entero/Rhino (PCR) SARS-CoV-2 RNA (RT-PCR) Anti-Streptolysin Scrn Assessment and Plan (1) Alcohol withdrawal: Status: Acute (2) Cellulitis: Status: Acute Plan 59yo M with polysubstance abuse on methadone, AUD, tobacco abuse admitted for purulent LLE wound infection/cellulitis at site of prior skin graft wound infection/cellulitis concern for osteomyelitis previous MRI in May negative for osteo however CRP and ESR now substantially higher - will check MRI continue vanco + zosyn follow blood cultures Wound Care consult ID consult-will defer MRI to ID L groin lymph node, increased since 09/20/23 DVT study again showing increased lymph nodes with concern for neoplasm MRI pelvis may - showing nonspecific lymphadenopathy, no enhancing URI/pharyngitis with copd execerebation: check RPP-negtaive strep aso elevated ,added throat cultures likely underlying COPD - outpatient PFTs recommended symptomatic support AUD with acute alcohol intoxication with concern for impending withdrawal phenobarbital taper thiamine, folic acid Recovery Team consult polysubstance abuse [cocaine + fentanyl] tox screen pending continue methadone Recovery Team consult noted apnea in ED o2 to keep sats above 90% overnight oximetry test elevated LFTs likely due to etoh use trend levels tobacco abuse Smoking cessation advised NRT Morbid obesity BMI 39.1 VTE ppx heparin ongoing need for stay in the hospital for management of wound infection/cellulitis -need iv antibiotocs , in addition patient also has alcohol withdrawal-requiring phenobarb protocol, CIWA scale, COPD exacerbation-nebs and steroids. Quality Stroke Does the patient have a stroke diagnosis?: No VTE Prior VTE?: No VTE Risk Level:: Medical - moderate - high VTE Device Contraindication: Treatment Not Indicated VTE Drug Contraindication: N/A - Med Ordered
--- NOTE | 2024-12-20 08:58 | HO.WOUND ---
Wound Consult: Follow up 59yr old male admitted to [facility] on 12/19/24 - See progress notes and H&P for detailed history. Wound consult follow up for left leg, patient requesting new dressing. Patient agreeable to assessment and photo documentation. Patient with chronic wound to left leg, like venous in nature, per chart review history of failed grafting to this area. patient reports increased drainage and swelling to wound. patient reports that he has been too drunk recently and has not been using any dressings on his wound. Large area of wounding, full thickness to anterior aspect of the left lower leg, superior to wound is an area of localized swelling and redness with mild fluctuance. Concern for fluid collection - TT to [facility]ON[facility] Tavarez for consult to general surgery/further imaging to rule out fluid collection. Lateral and distal lower leg with dry red and superficial appearing wounding - likely some component of MASD in the setting of increased drainage from the wound. Left Lower Leg 12/20/24 Left Lower Leg 12/20/24 Left leg 12/19/26 Etiology: Venous stasis ulcer Measurements: 23cm x 15cm x 0.3cm Wound Bed: Central wound with full thickness tissue loss adherent yellow slough above deepest part of wound soft fluctuance noted - surrounding wound with red pink partial thickness tissue loss dry red/yellow Drainage / Odor: drainage noted on hospital pants patient had taken off dressing unsure of why serosanguineous, Mild odor noted Edges: ? irregular Jena wound: ? No Induration noted, small area of swelling and fluctuance noted superior to wound on anterior aspect, redness and swelling noted to leg. Pain: none Goals of Treatment: ?Medihoney and xeroformr - followed by jazmyne for antimicrobial and drainage absorption Recommendations: Left leg: cleanse with normal saline, apply Medihoney to deepest part of wound bed followed by [employer], remained of wound bed with xeroform followed by ABD pad, wrap with kerlix, change daily and PRN. Re-consult wound care Nurse for wound deterioration or wound changes.
[2024-12-20] MEDS: Aspirin Enteric Coated 81 MG TABLET.DR PO (09:53)
[2024-12-20] MEDS: methADONE HCl 20 MG/2 ML ORAL.CONC 95 MG PO (09:54)
[2024-12-20] MEDS: Nicotine 14 MG PATCH.TD24 TRANSDERMA (10:00)
--- NOTE | 2024-12-20 10:17 | HO.ADDICTPRO ---
Subjective Subjective Date of Service: 12/20/24 Reason For Visit: cellulitis, etoh withdrawal Interim History: Patient seen in follow up for AUD and withdrawal Chart review shows patient had a fall shortly after coming to floor from the ED--reporting anxiety/panic. This morning patient seen in room 473. He is awake, alert, engaged in interview. Stating he feels better than yesterday, and stated I never want to feel like that again . He still presents with anxious affect, improved from yesterday afternoon. Mild tremor noted, somewhat restless. Eating without issue, denies loose stools. C/O sore throat--reminded to request PRN throat lozenges Review of Systems Acute medical concerns: Yes Review of Systems Constitutional: Reports as per HPI Mental Status Exam Mental Status Exam Level of Consciousness: Awake, Appropriate and Alert Patient Behavior: Appropriate and Talkative Affect Description: Anxious Speech Pattern: Clear Thought Process: Intact Thought Content: positive for Intact Judgement: Good Diagnostics Vital Signs (24Hr): Vital Signs - 24 hr 12/19/24 11:38 12/19/24 13:28 12/19/24 17:23 Temperature 97.4 F 98.5 F Pulse Rate 72 78 Respiratory Rate 14 19 Blood Pressure 151/76 H 158/97 H 152/127 H Pulse Oximetry 94 95 Oxygen Delivery Method Room Air Room Air Oxygen Flow Rate 12/19/24 19:20 12/19/24 20:20 12/19/24 20:20 Temperature 98 F Pulse Rate 82 63 59 Respiratory Rate 18 18 Blood Pressure 182/85 H 134/89 134/89 Pulse Oximetry 92 97 95 Oxygen Delivery Method Room Air Nasal Cannula Nasal Cannula Oxygen Flow Rate 2 2 12/19/24 20:46 12/19/24 21:20 12/19/24 21:20 Temperature 97.8 F Pulse Rate 63 63 63 Respiratory Rate 18 18 18 Blood Pressure 136/89 Pulse Oximetry 97 96 Oxygen Delivery Method Nasal Cannula Oxygen Flow Rate 12/19/24 23:49 12/20/24 03:17 12/20/24 04:03 Temperature 97.8 F 97.6 F Pulse Rate 65 59 58 Respiratory Rate 18 18 18 Blood Pressure 176/84 H 178/93 H Pulse Oximetry 95 94 Oxygen Delivery Method Nasal Cannula Nasal Cannula Oxygen Flow Rate 2 2 12/20/24 07:25 12/20/24 08:21 Temperature 98.1 F Pulse Rate 61 61 Respiratory Rate 16 16 Blood Pressure 173/86 H Pulse Oximetry 94 Oxygen Delivery Method Nasal Cannula Oxygen Flow Rate 2 BMI result Body Mass Index 35.6 Labs 12/20/24 06:50 12/20/24 06:50 Labs: Laboratory Results - last 48 hr 12/19/24 12/19/24 12/19/24 07:44 07:46 07:55 WBC 7.7 RBC 4.24 L Hgb 13.7 L Hct 42.2 MCV 99.5 H MCH 32.3 MCHC 32.5 RDW 13.8 Plt Count 296 MPV 9.4 Immature Gran % (Auto) 0.4 Neut % (Auto) 67.3 Lymph % (Auto) 17.2 L [place] % (Auto) 12.5 H Eos % (Auto) 2.1 Baso % (Auto) 0.5 Lymph # (Auto) 1.3 [place] # (Auto) 1.0 Eos # (Auto) 0.2 Baso # (Auto) 0.0 Abs Immat Gran (auto) 0.03 Absolute Neuts (auto) 5.2 Absolute Nucleated RBC 0.000 Nucleated RBC % (auto) 0.0 Smear Tech's Comments ESR 77 H VBG pH 7.48 H VBG pCO2 41 VBG pO2 87 VBG HCO3 30 H VBG O2 Saturation 98.0 VBG Base Excess 6.6 Sodium 140 Potassium 3.7 Chloride 100 Carbon Dioxide 28 Anion Gap 16 BUN 11 Creatinine 0.73 Estim Creat Clear Calc 141.1 Estimated GFR > 60 POC Glucose Random Glucose 71 Lactic Acid 1.7 Calcium 8.5 Magnesium 1.8 Total Bilirubin 0.5 Direct Bilirubin AST 94 H ALT 47 H Alkaline Phosphatase 172 H C-Reactive Protein 7.88 H NT-Pro-B Natriuret Pep 140.6 Total Protein 8.7 H Albumin 3.6 Urine Opiates Screen Ur Buprenorphine Scrn Ur Oxycodone Screen Urine Methadone Screen Urine Fentanyl Screen Ur Barbiturates Screen Ur Phencyclidine Scrn Ur Amphetamines Screen U Benzodiazepines Scrn Urine Cocaine Screen U Marijuana (THC) Screen Ethyl Alcohol 187 Respiratory Panel Noe Adenovirus (Rapid PCR) B.pert (TEM-PCR) B.parapertussis DNA PCR C. pneumoniae DNA (PCR) Coronavirus OC43 (PCR) Coronavirus HKU1 (PCR) Coronavirus 229E (PCR) COVID-19 (DIGNA) Negative COVID-19 Clin Com See Note Coronavirus NL63 (PCR) Human Metapneumovir PCR Influenza Type A (OMA) Negative Influenza A (RT-PCR) Influenza A (H1) PCR Influ A (H1/09) PCR Influenza A (H3) PCR Influenza Type B (OMA) Negative Influenza B (RT-PCR) Influenza A & B Note See Note M. pneumoniae (PCR) Parainfluenza 1 (PCR) Parainfluenza 2 (PCR) Parainfluenza 3 (PCR) Parainfluenza 4 (PCR) RSV (PCR) Entero/Rhino (PCR) SARS-CoV-2 RNA (RT-PCR) Anti-Streptolysin Scrn 12/19/24 12/19/24 12/19/24 10:13 11:09 13:31 WBC RBC Hgb Hct MCV MCH MCHC RDW Plt Count MPV Immature Gran % (Auto) Neut % (Auto) Lymph % (Auto) [place] % (Auto) Eos % (Auto) Baso % (Auto) Lymph # (Auto) [place] # (Auto) Eos # (Auto) Baso # (Auto) Abs Immat Gran (auto) Absolute Neuts (auto) Absolute Nucleated RBC Nucleated RBC % (auto) Smear Tech's Comments ESR VBG pH VBG pCO2 VBG pO2 VBG HCO3 VBG O2 Saturation VBG Base Excess Sodium Potassium Chloride Carbon Dioxide Anion Gap BUN Creatinine Estim Creat Clear Calc Estimated GFR POC Glucose Random Glucose Lactic Acid Calcium Magnesium Total Bilirubin Direct Bilirubin AST ALT Alkaline Phosphatase C-Reactive Protein NT-Pro-B Natriuret Pep Total Protein Albumin Urine Opiates Screen POSITIVE H Ur Buprenorphine Scrn Not Detected Ur Oxycodone Screen Not Detected Urine Methadone Screen Positive H Urine Fentanyl Screen POSITIVE H Ur Barbiturates Screen POSITIVE H Ur Phencyclidine Scrn Not Detected Ur Amphetamines Screen Not Detected U Benzodiazepines Scrn Not Detected Urine Cocaine Screen POSITIVE H U Marijuana (THC) Screen Not Detected Ethyl Alcohol Respiratory Panel Noe See Note Adenovirus (Rapid PCR) Not Detected B.pert (TEM-PCR) Not Detected B.parapertussis DNA PCR Not Detected C. pneumoniae DNA (PCR) Not Detected Coronavirus OC43 (PCR) Not Detected Coronavirus HKU1 (PCR) Not Detected Coronavirus 229E (PCR) Not Detected COVID-19 (DIGNA) COVID-19 Clin Com Coronavirus NL63 (PCR) Not Detected Human Metapneumovir PCR Not Detected Influenza Type A (OMA) Influenza A (RT-PCR) Not Detected Influenza A (H1) PCR Not Detected Influ A (H1/09) PCR Not Detected Influenza A (H3) PCR Not Detected Influenza Type B (OMA) Influenza B (RT-PCR) Not Detected Influenza A & B Note M. pneumoniae (PCR) Not Detected Parainfluenza 1 (PCR) Not Detected Parainfluenza 2 (PCR) Not Detected Parainfluenza 3 (PCR) Not Detected Parainfluenza 4 (PCR) Not Detected RSV (PCR) Not Detected Entero/Rhino (PCR) Not Detected SARS-CoV-2 RNA (RT-PCR) Not Detected Anti-Streptolysin Scrn 2330 H 12/19/24 12/20/24 20:23 06:50 WBC 6.8 RBC 3.86 L Hgb 12.5 L Hct 39.0 L MCV 101.0 H MCH 32.4 MCHC 32.1 RDW 13.9 Plt Count 241 MPV 9.8 Immature Gran % (Auto) 0.3 Neut % (Auto) 91.9 H Lymph % (Auto) 2.8 L [place] % (Auto) 4.9 Eos % (Auto) 0.0 Baso % (Auto) 0.1 Lymph # (Auto) 0.2 L [place] # (Auto) 0.3 Eos # (Auto) 0.0 Baso # (Auto) 0.0 Abs Immat Gran (auto) 0.02 Absolute Neuts (auto) 6.2 Absolute Nucleated RBC 0.020 H Nucleated RBC % (auto) 0.3 H Smear Tech's Comments VERIFIED ESR VBG pH VBG pCO2 VBG pO2 VBG HCO3 VBG O2 Saturation VBG Base Excess Sodium 134 L Potassium 3.7 Chloride 100 Carbon Dioxide 27 Anion Gap 11 L BUN 9 Creatinine 0.66 Estim Creat Clear Calc 148.7 Estimated GFR > 60 POC Glucose 207 H Random Glucose 245 H Lactic Acid Calcium 8.2 L Magnesium Total Bilirubin 0.5 Direct Bilirubin 0.3 AST 107 H ALT 61 H Alkaline Phosphatase 149 H C-Reactive Protein NT-Pro-B Natriuret Pep Total Protein 7.5 Albumin 3.0 L Urine Opiates Screen Ur Buprenorphine Scrn Ur Oxycodone Screen Urine Methadone Screen Urine Fentanyl Screen Ur Barbiturates Screen Ur Phencyclidine Scrn Ur Amphetamines Screen U Benzodiazepines Scrn Urine Cocaine Screen U Marijuana (THC) Screen Ethyl Alcohol Respiratory Panel Noe Adenovirus (Rapid PCR) B.pert (TEM-PCR) B.parapertussis DNA PCR C. pneumoniae DNA (PCR) Coronavirus OC43 (PCR) Coronavirus HKU1 (PCR) Coronavirus 229E (PCR) COVID-19 (DIGNA) COVID-19 Clin Com Coronavirus NL63 (PCR) Human Metapneumovir PCR Influenza Type A (OMA) Influenza A (RT-PCR) Influenza A (H1) PCR Influ A (H1/09) PCR Influenza A (H3) PCR Influenza Type B (OMA) Influenza B (RT-PCR) Influenza A & B Note M. pneumoniae (PCR) Parainfluenza 1 (PCR) Parainfluenza 2 (PCR) Parainfluenza 3 (PCR) Parainfluenza 4 (PCR) RSV (PCR) Entero/Rhino (PCR) SARS-CoV-2 RNA (RT-PCR) Anti-Streptolysin Scrn Imaging Radiology Impressions: ITS Impressions Venous Duplex 12/19/24 08:16 IMPRESSION: 1. No evidence of acute DVT in the left lower extremity. 2. Left inguinal and popliteal lymphadenopathy. Findings are suspicious for neoplasm. Ultrasound-guided fine-needle aspiration to be considered. Electronically signed by: Stanley Desir MD 12/19/2024 08:41 AM EDT Tibia/Fibula X-Ray 12/19/24 08:30 IMPRESSION: Diffuse soft tissue swelling. Stable cortical thickening involving the mid shafts of the tibia and fibula. No plain film evidence of osteomyelitis. If this remains a clinical concern, three-phase bone scan or MRI could be performed. Electronically signed by: Stanley Desir MD 12/19/2024 08:54 AM EDT RP Chest X-Ray 12/19/24 08:34 IMPRESSION: Acute on chronic airspace disease. Superimposed mild interstitial lung edema cannot be excluded. Electronically signed by: Stiven Candelaria MD 12/19/2024 08:52 AM EDT Medications Medications Current Medications Acetaminophen (Acetaminophen 325 Mg Tablet) 650 mg PO Q6H PRN PRN Reason: Pain, Mild 1-3,fever,headache Albuterol Sulfate (Albuterol Sulfate (0.083%) 2.5 Mg/3 Ml Vial.Neb) 2.5 mg INHALE Q2H PRN PRN Reason: Shortness of Breath/Wheezing Last Admin: 12/20/24 04:03 Dose: 2.5 mg Albuterol/Ipratropium (Albuterol/Iprat 2.5/0.5mg 3 Ml Ampul.Neb) 3 ml INHALE RQ4H WHILE AWAKE [facility] Last Admin: 12/20/24 08:20 Dose: 3 ml Aspirin (Aspirin Enteric Coated 81 Mg Tablet.Dr) 81 mg PO DAILY [facility] Last Admin: 12/20/24 09:53 Dose: 81 mg Benzocaine (Throat Lozenge, Medicated Lozenge) 1 lozenge MUCOUS MEM Q2H PRN PRN Reason: Sore Throat Last Admin: 12/19/24 16:30 Dose: 1 lozenge Calcium Carbonate (Calcium Carbonate 750 Mg Tab.Chew) 750 mg PO Q4H PRN PRN Reason: Heartburn Clonidine HCl (Clonidine Hcl 0.1 Mg Tablet) 0.1 mg PO BID PRN; Protocol PRN Reason: withdrawal Last Admin: 12/19/24 17:23 Dose: 0.1 mg Folic Acid (Folic Acid 1 Mg Tablet) 1 mg PO DAILY [facility] Last Admin: 12/20/24 09:53 Dose: 1 mg Gabapentin (Gabapentin 100 Mg Capsule) 100 mg PO TID PRN PRN Reason: anxiety/restlessness Last Admin: 12/19/24 16:30 Dose: 100 mg Guaifenesin/Dextromethorphan (Guaifenesin Dm 100/10/5 Ml 5 Ml Syrup) 5 ml PO Q6H PRN PRN Reason: Cough Last Admin: 12/19/24 16:30 Dose: 5 ml Heparin Sodium (Porcine) (Heparin Sodium,Porcine 5,000 Unit/Ml Vial) 5,000 unit SUBCUT Q12H [facility] Last Admin: 12/20/24 09:54 Dose: 5,000 unit Piperacillin Sod/Tazobactam (Sod 4.5 gm/ Sodium Chloride) 100 mls @ 200 mls/hr IV Q8H [facility] Last Infusion: 12/20/24 09:19 Dose: Infused Vancomycin HCl 1,250 mg/ (Sodium Chloride) 250 mls @ 166.667 mls/hr IV Q12H [facility] Last Infusion: 12/20/24 05:48 Dose: Infused Thiamine HCl 100 mg/ Sodium (Chloride) 101 mls @ 202 mls/hr IV DAILY [facility] Doxycycline Hyclate 100 mg/ (Sodium Chloride) 250 mls @ 166.67 mls/hr IV Q12H [facility] Last Admin: 12/20/24 09:52 Dose: 166.67 mls/hr Magnesium Hydroxide (Milk Of Magnesia 30 Ml Oral.Susp) 30 ml PO DAILY PRN PRN Reason: Constipation Melatonin (Melatonin 3 Mg Tablet) 6 mg PO BEDTIME PRN PRN Reason: Insomnia Last Admin: 12/19/24 19:44 Dose: 6 mg Methadone HCl (Methadone Hcl 20 Mg/2 Ml Oral.Conc) 95 mg PO DAILY [facility] Last Admin: 12/20/24 09:54 Dose: 95 mg Mirtazapine (Mirtazapine 15 Mg Tablet) 15 mg PO BEDTIME [facility] Last Admin: 12/19/24 19:44 Dose: 15 mg Nicotine (Nicotine 14 Mg Patch.Td24) 14 mg TRANSDERMA DAILY [facility] Last Admin: 12/20/24 10:00 Dose: 14 mg Pharmacy Consult (Consult Rx Etoh Phenob Im/Po) 1 each MISCELLANE ONCE PRN; Protocol PRN Reason: Consult order Pharmacy Consult (Consult Rx Vancomycin Dosing) 1 each MISCELLANE DAILY PRN PRN Reason: Consult order Phenobarbital (Phenobarbital 15 Mg Tablet) 45 mg PO BID [facility]; Protocol Stop: 12/21/24 09:01 Last Admin: 12/20/24 09:53 Dose: 45 mg Phenobarbital (Phenobarbital 30 Mg Tablet) 30 mg PO BID [facility]; Protocol Stop: 12/23/24 09:01 Phenobarbital (Phenobarbital 30 Mg Tablet) 30 mg PO DAILY [facility]; Protocol Stop: 12/25/24 09:01 Sodium Chloride (0.9 % Sodium Chloride Flush 3 Ml Syringe) 3 ml IVFLUSH QSHIFT [facility] Last Admin: 12/20/24 08:19 Dose: 3 ml Sodium Chloride (Sodium Chloride 0.65 % Nasal 44 Ml Sprbtl) 1 spray NOSTRIL-B Q1H PRN PRN Reason: Dry Nasal Passages Last Admin: 12/19/24 17:50 Dose: 1 spray Allergies Allergies Allergy/AdvReac Type Severity Reaction Status Date / Time No Known Allergies Allergy Verified 12/19/24 07:18 Assessment & Plan Assessment & Plan (1) Alcohol use disorder, severe, dependence: Status: Acute Code(s): F10.20 - Alcohol dependence, uncomplicated Assessment and Plan: phenobarbital managing withdrawal --PRN doses for worsening withdrawal sx PRN gabapentin and clonidine for increasing restlessness and anxiety. can transition to PO thiamine in the AM mailing jogger to check in regarding resources and education r/t ongoing alcohol use Total time managing care of this patient today __15__ minutes.
--- NOTE | 2024-12-20 10:58 | MHC.CM.PN ---
Pt. lives with roomates, he does not have a PCP, phone # given for C. Pt. goes to [facility] for Methadone. He does not have a ride home at [place], DCP: home, self care, CM to follow for DC needs.
[2024-12-20] MEDS: Thiamine HCL 100 MG in 0.9 % Sodium Chloride 100 ML 202 MG IV (13:31)
--- NOTE | 2024-12-20 14:10 | W.PM.IDCN ---
History of Present Illness Data of Consult Service Date: 12/19/24 Requesting physician: Sena Alvarado Primary Care Provider: None Physician HPI Reason for consult: alcohol withdrawal,chronic left wounds He presents with shakes and tremors. He has alcohol withdrawal . He also says his leg has worsening erythema right, He has occasional outbreaks of cellulitis (last seen May by me) in area of prior skin graft. [facility] [place] Past Medical History Medical History Alcohol abuse Tobacco use disorder Polysubstance use disorder Family History Family history: reviewed and not pertinent Social History Social History Household Members: None Housing: Apartment Do you presently have visiting nurse or other home services: No Alcohol intake: current Alcohol intake frequency: 0-2 drinks per day Alcohol type: hard liquor Patient Tobacco Use Status: Current everyday Tobacco user Tobacco use type: Cigarette Cigarette Packs Per Day: 0.5 Cigarettes Per Day: 10.0 e-Cigarette/Vaping Use: Never Used Second Hand Smoke Exposure: No Substance Use Type: Crack/Cocaine service: No Meds Allergies Allergy/AdvReac Type Severity Reaction Status Date / Time No Known Allergies Allergy Verified 12/19/24 07:18 Active Medications: Current Medications Acetaminophen (Acetaminophen 325 Mg Tablet) 650 mg PO Q6H PRN PRN Reason: Pain, Mild 1-3,fever,headache Albuterol Sulfate (Albuterol Sulfate (0.083%) 2.5 Mg/3 Ml Vial.Neb) 2.5 mg INHALE Q2H PRN PRN Reason: Shortness of Breath/Wheezing Last Admin: 12/20/24 04:03 Dose: 2.5 mg Albuterol/Ipratropium (Albuterol/Iprat 2.5/0.5mg 3 Ml Ampul.Neb) 3 ml INHALE RQ4H WHILE AWAKE [facility] Last Admin: 12/20/24 11:46 Dose: 3 ml Aspirin (Aspirin Enteric Coated 81 Mg Tablet.) 81 mg PO DAILY [facility] Last Admin: 12/20/24 09:53 Dose: 81 mg Benzocaine (Throat Lozenge, Medicated Lozenge) 1 lozenge MUCOUS MEM Q2H PRN PRN Reason: Sore Throat Last Admin: 12/19/24 16:30 Dose: 1 lozenge Calcium Carbonate (Calcium Carbonate 750 Mg Tab.Chew) 750 mg PO Q4H PRN PRN Reason: Heartburn Clonidine HCl (Clonidine Hcl 0.1 Mg Tablet) 0.1 mg PO BID PRN; Protocol PRN Reason: withdrawal Last Admin: 12/19/24 17:23 Dose: 0.1 mg Folic Acid (Folic Acid 1 Mg Tablet) 1 mg PO DAILY [facility] Last Admin: 12/20/24 09:53 Dose: 1 mg Gabapentin (Gabapentin 100 Mg Capsule) 100 mg PO TID PRN PRN Reason: anxiety/restlessness Last Admin: 12/19/24 16:30 Dose: 100 mg Guaifenesin/Dextromethorphan (Guaifenesin Dm 100/10/5 Ml 5 Ml Syrup) 5 ml PO Q6H PRN PRN Reason: Cough Last Admin: 12/19/24 16:30 Dose: 5 ml Heparin Sodium (Porcine) (Heparin Sodium,Porcine 5,000 Unit/Ml Vial) 5,000 unit SUBCUT Q12H [facility] Last Admin: 12/20/24 09:54 Dose: 5,000 unit Piperacillin Sod/Tazobactam (Sod 4.5 gm/ Sodium Chloride) 100 mls @ 200 mls/hr IV Q8H [facility] Last Infusion: 12/20/24 09:19 Dose: Infused Vancomycin HCl 1,250 mg/ (Sodium Chloride) 250 mls @ 166.667 mls/hr IV Q12H [facility] Last Infusion: 12/20/24 05:48 Dose: Infused Thiamine HCl 100 mg/ Sodium (Chloride) 101 mls @ 202 mls/hr IV DAILY [facility] Last Admin: 12/20/24 13:31 Dose: 202 mls/hr Doxycycline Hyclate 100 mg/ (Sodium Chloride) 250 mls @ 166.67 mls/hr IV Q12H [facility] Last Admin: 12/20/24 09:52 Dose: 166.67 mls/hr Magnesium Hydroxide (Milk Of Magnesia 30 Ml Oral.Susp) 30 ml PO DAILY PRN PRN Reason: Constipation Melatonin (Melatonin 3 Mg Tablet) 6 mg PO BEDTIME PRN PRN Reason: Insomnia Last Admin: 12/19/24 19:44 Dose: 6 mg Methadone HCl (Methadone Hcl 20 Mg/2 Ml Oral.Conc) 95 mg PO DAILY [facility] Last Admin: 12/20/24 09:54 Dose: 95 mg Mirtazapine (Mirtazapine 15 Mg Tablet) 15 mg PO BEDTIME [facility] Last Admin: 12/19/24 19:44 Dose: 15 mg Nicotine (Nicotine 14 Mg Patch.Td24) 14 mg TRANSDERMA DAILY [facility] Last Admin: 12/20/24 10:00 Dose: 14 mg Pharmacy Consult (Consult Rx Etoh Phenob Im/Po) 1 each MISCELLANE ONCE PRN; Protocol PRN Reason: Consult order Pharmacy Consult (Consult Rx Vancomycin Dosing) 1 each MISCELLANE DAILY PRN PRN Reason: Consult order Phenobarbital (Phenobarbital 15 Mg Tablet) 45 mg PO BID [facility]; Protocol Stop: 12/21/24 09:01 Last Admin: 12/20/24 09:53 Dose: 45 mg Phenobarbital (Phenobarbital 30 Mg Tablet) 30 mg PO BID [facility]; Protocol Stop: 12/23/24 09:01 Phenobarbital (Phenobarbital 30 Mg Tablet) 30 mg PO DAILY [facility]; Protocol Stop: 12/25/24 09:01 Sodium Chloride (0.9 % Sodium Chloride Flush 3 Ml Syringe) 3 ml IVFLUSH QSHIFT [facility] Last Admin: 12/20/24 08:19 Dose: 3 ml Sodium Chloride (Sodium Chloride 0.65 % Nasal 44 Ml Sprbtl) 1 spray NOSTRIL-B Q1H PRN PRN Reason: Dry Nasal [place] Last Admin: 12/19/24 17:50 Dose: 1 spray Home Medications ?Medication ?Instructions ?Recorded ?Confirmed ?Last Taken ?Type methadone 10 mg/mL oral 95 mg PO DAILY 12/19/24 12/19/24 12/18/24 History concentrate (Methadone Intensol) Physical Exam Vital Signs: Vital Signs: Last Vital Signs Temp 98.2 F 12/20/24 11:33 Pulse 62 12/20/24 11:47 Resp 20 12/20/24 11:47 BP 136/78 12/20/24 11:33 Pulse Ox 95 12/20/24 11:33 O2 Del Method Room Air 12/20/24 11:33 O2 Flow Rate 2 12/20/24 07:25 Oxygen Flow Rate 2 12/19/24 21:20 BMI result Body Mass Index 35.6 Const: General: cooperative HEENT: Head: Yes normal to inspection Face and sinus: Yes normal facial exam Mouth: Normal oral and palatal mucosa present Teeth and gingiva: dentition normal Eyes: General: appearance normal, both eyes and all related structures Pupils: Equal, round and reactive pupils present Resp: Effort & Inspection: normal respiratory effort Cardio: Rate: regular rate Rhythm: regular rhythm GI: Palpation (GI): Soft to palpation and nontender : General: Yes no CVA tenderness Back/Spine/Pelvis: Back: no CVA tenderness Skin: Other: scaling erythema right leg Neuro: Other: tremors General: moves all extremities Cranial nerves: Yes Equal, round and reactive pupils present Extrem: General: Yes normal to inspection Psych: Appearance: grossly normal Results Labs 12/20/24 06:50 12/20/24 06:50 Labs: Short CBC 12/20/24 Range/Units 06:50 WBC 6.8 (4.8-10.8) X10*3/uL Hgb 12.5 L (14.0-18.0) g/dl Hct 39.0 L (42.0-52.0) % Plt Count 241 (160-400) X10*3/uL BMP 12/20/24 06:50 Sodium 134 L Potassium 3.7 Chloride 100 Carbon Dioxide 27 BUN 9 Creatinine 0.66 Calcium 8.2 L Liver Function 12/20/24 Range/Units 06:50 Total Bilirubin 0.5 (0.0-1.0) mg/dL Direct Bilirubin 0.3 (0.0-0.5) mg/dL AST 107 H (5-37) U/L ALT 61 H (0-40) U/L Alkaline Phosphatase 149 H (39-117) U/L Albumin 3.0 L (3.5-5.0) g/dL Microbiology Microbiology Results: Microbiology 12/19/24 07:43 Blood - Venous Blood Culture - Preliminary No growth after 24 hours. 12/19/24 07:48 Blood - Venous Blood Culture - Preliminary No growth after 24 hours. Assessment and Plan (1) Alcohol withdrawal: Qualifiers: Complication of substance-induced condition: uncomplicated Qualified Code(s): F10.930 - Alcohol use, unspecified with withdrawal, uncomplicated Status: Acute (2) Cellulitis: Qualifiers: Laterality: left Site of cellulitis: extremity Site of cellulitis of extremity: lower extremity Qualified Code(s): L03.116 - Cellulitis of left lower limb Status: Acute Plan Agree Vancomycin and piperacillin/tazobactam until improved and then po Augmentin and Doxycycline
--- NOTE | 2024-12-20 15:45 | HE.PHANOTE ---
MARKUS Changed frequency to Q8H as trough was only 8.5 after 3 doses. Pt's renal function stable - new predicted trough 15.1, to be drawn 12/21 @1400. Target AUC 496.
[2024-12-21] VITALS (11 sets, daily range): BP systolic 141–188; BP diastolic 63–99; PULSE 60–78; RESP 12–20; TEMP 36.3–37.2; O2SAT 92–97
[2024-12-21] MEDS: Albuterol/Iprat 2.5/0.5MG 3 ML AMPUL.NEB INHALE ×4 (07:51→20:07)
[2024-12-21] MEDS: methADONE HCl 20 MG/2 ML ORAL.CONC 95 MG PO (08:07)
[2024-12-21] MEDS: 0.9 % Sodium Chloride Flush 3 ML SYRINGE IVFLUSH ×3 (08:10→23:18)
[2024-12-21] MEDS: Aspirin Enteric Coated 81 MG TABLET.DR PO (08:19)
[2024-12-21] MEDS: Nicotine 14 MG PATCH.TD24 TRANSDERMA (08:20)
--- NOTE | 2024-12-21 08:26 | P.PNIM_ITS ---
Subjective Subjective Date of Service: 12/21/24 Interval History: cellulitis Review of Systems has throat pain denies new symptoms Review of Systems: Yes all other systems are reviewed and are negative Physical Exam 2 Exam: Exam: Appearance: Alert.? Oriented X3.? tramlous but improvin cvs: [id number], [id number] . res: clear to auscultation ,no rhonchii or wheezing abd: no rebound or guarding ,nt, bs present. ext pulses present , no cyanosis . neuro: axo3 , nonfocal. Vital Signs: Vital Signs: Last Vital Signs Temp 97.7 F 12/21/24 07:31 Pulse 70 12/21/24 07:56 Resp 18 12/21/24 07:56 BP 183/88 H 12/21/24 07:31 Pulse Ox 96 12/21/24 07:31 O2 Del Method Nasal Cannula 12/21/24 07:31 O2 Flow Rate 2 12/21/24 07:31 Oxygen Flow Rate 2 12/19/24 21:20 BMI result Body Mass Index 35.6 Objective Data Active Medications Acetaminophen (Acetaminophen 325 Mg Tablet) 650 mg PO Q6H PRN PRN Reason: Pain, Mild 1-3,fever,headache Albuterol Sulfate (Albuterol Sulfate (0.083%) 2.5 Mg/3 Ml Vial.Neb) 2.5 mg INHALE Q2H PRN PRN Reason: Shortness of Breath/Wheezing Last Admin: 12/20/24 04:03 Dose: 2.5 mg Documented By: AMANUEL Albuterol/Ipratropium (Albuterol/Iprat 2.5/0.5mg 3 Ml Ampul.Neb) 3 ml INHALE RQ4H WHILE AWAKE [facility] Last Admin: 12/21/24 07:51 Dose: 3 ml Documented By: FLAVIO Aspirin (Aspirin Enteric Coated 81 Mg Tablet.Dr) 81 mg PO DAILY [facility] Last Admin: 12/21/24 08:19 Dose: 81 mg Documented By: SOCRATES Benzocaine (Throat Lozenge, Medicated Lozenge) 1 lozenge MUCOUS MEM Q2H PRN PRN Reason: Sore Throat Last Admin: 12/19/24 16:30 Dose: 1 lozenge Calcium Carbonate (Calcium Carbonate 750 Mg Tab.Chew) 750 mg PO Q4H PRN PRN Reason: Heartburn Clonidine HCl (Clonidine Hcl 0.1 Mg Tablet) 0.1 mg PO BID PRN; Protocol PRN Reason: withdrawal Last Admin: 12/19/24 17:23 Dose: 0.1 mg Documented By: MARIELENA Folic Acid (Folic Acid 1 Mg Tablet) 1 mg PO DAILY [facility] Last Admin: 12/21/24 08:19 Dose: 1 mg Documented By: SOCRATES Gabapentin (Gabapentin 100 Mg Capsule) 100 mg PO TID PRN PRN Reason: anxiety/restlessness Last Admin: 12/19/24 16:30 Dose: 100 mg Documented By: MARIELENA Guaifenesin/Dextromethorphan (Guaifenesin Dm 100/10/5 Ml 5 Ml Syrup) 5 ml PO Q6H PRN PRN Reason: Cough Last Admin: 12/19/24 16:30 Dose: 5 ml Documented By: MARIELENA Heparin Sodium (Porcine) (Heparin Sodium,Porcine 5,000 Unit/Ml Vial) 5,000 unit SUBCUT Q12H [facility] Last Admin: 12/20/24 20:29 Dose: Not Given Documented By: ALONSO Non-Admin Reason: Patient Refused Piperacillin Sod/Tazobactam (Sod 4.5 gm/ Sodium Chloride) 100 mls @ 200 mls/hr IV Q8H [facility] Last Admin: 12/21/24 08:10 Dose: 200 mls/hr Documented By: SOCRATES Thiamine HCl 100 mg/ Sodium (Chloride) 101 mls @ 202 mls/hr IV DAILY [facility] Last Infusion: 12/20/24 15:14 Dose: Infused Documented By: LION Doxycycline Hyclate 100 mg/ (Sodium Chloride) 250 mls @ 166.67 mls/hr IV Q12H [facility] Last Infusion: 12/20/24 22:06 Dose: Infused Documented By: ALONSO Vancomycin HCl 1,250 mg/ (Sodium Chloride) 250 mls @ 166.667 mls/hr IV Q8H [facility] Last Infusion: 12/21/24 02:36 Dose: Infused Documented By: ALONSO Magnesium Hydroxide (Milk Of Magnesia 30 Ml Oral.Susp) 30 ml PO DAILY PRN PRN Reason: Constipation Melatonin (Melatonin 3 Mg Tablet) 6 mg PO BEDTIME PRN PRN Reason: Insomnia Last Admin: 12/20/24 20:27 Dose: 6 mg Documented By: ALONSO Methadone HCl (Methadone Hcl 20 Mg/2 Ml Oral.Conc) 95 mg PO DAILY [facility] Last Admin: 12/21/24 08:07 Dose: 95 mg Documented By: SOCRATES Co-signed By: BRIGIDA Mirtazapine (Mirtazapine 15 Mg Tablet) 15 mg PO BEDTIME [facility] Last Admin: 12/20/24 20:27 Dose: 15 mg Documented By: ALONSO Nicotine (Nicotine 14 Mg Patch.Td24) 14 mg TRANSDERMA DAILY [facility] Last Admin: 12/21/24 08:20 Dose: 14 mg Documented By: SOCRATES Pharmacy Consult (Consult Rx Etoh Phenob Im/Po) 1 each MISCELLANE ONCE PRN; Protocol PRN Reason: Consult order Pharmacy Consult (Consult Rx Vancomycin Dosing) 1 each MISCELLANE DAILY PRN PRN Reason: Consult order Phenobarbital (Phenobarbital 15 Mg Tablet) 45 mg PO BID [facility]; Protocol Stop: 12/21/24 09:01 Last Admin: 12/21/24 08:19 Dose: 45 mg Documented By: SOCRATES Phenobarbital (Phenobarbital 30 Mg Tablet) 30 mg PO BID [facility]; Protocol Stop: 12/23/24 09:01 Phenobarbital (Phenobarbital 30 Mg Tablet) 30 mg PO DAILY [facility]; Protocol Stop: 12/25/24 09:01 Prednisone (Prednisone 20 Mg Tablet) 40 mg PO DAILY [facility] Last Admin: 12/21/24 08:19 Dose: 40 mg Documented By: SOCRATES Sodium Chloride (0.9 % Sodium Chloride Flush 3 Ml Syringe) 3 ml IVFLUSH QSHIFT [facility] Last Admin: 12/21/24 08:10 Dose: 3 ml Documented By: SOCRATES Sodium Chloride (Sodium Chloride 0.65 % Nasal 44 Ml Sprbtl) 1 spray NOSTRIL-B Q1H PRN PRN Reason: Dry Nasal Passages Last Admin: 12/19/24 17:50 Dose: 1 spray Documented By: MARIELENA Tramadol HCl (Tramadol Hcl 50 Mg Tablet) 50 mg PO Q4H PRN PRN Reason: Pain, Severe (Pain Scale 7-10) Last Admin: 12/20/24 16:49 Dose: 50 mg Documented By: HO.DOBROB Labs 12/20/24 06:50 12/21/24 08:00 Labs: Laboratory Results - last 24 hr 12/20/24 15:06 Random Vancomycin 8.5 L Microbiology Microbiology Results: Microbiology 12/19/24 07:43 Blood Culture - Preliminary Blood - Venous No growth after 24 hours. 12/19/24 07:48 Blood Culture - Preliminary Blood - Venous No growth after 24 hours. Assessment and Plan (1) Alcohol withdrawal: Status: Acute (2) Cellulitis: Status: Acute Plan 59yo M with polysubstance abuse on methadone, AUD, tobacco abuse admitted for purulent LLE wound infection/cellulitis at site of prior skin graft wound infection/cellulitis previous MRI in May negative for osteo however CRP and ESR elevated continue vanco + zosyn follow blood cultures Wound Care consult ID consult-likely cellulitis -continue iv antibiotics L groin lymph node, increased since 09/20/23 DVT study again showing increased lymph nodes with concern for neoplasm MRI pelvis may - showing nonspecific lymphadenopathy, no enhancing URI/pharyngitis with copd execerebation: check RPP-negtaive rapid strep negative , throat cultures -pending ,strep aso elevated (ordered by chance/error for throat pain instead of rapid strep test). likely underlying COPD - outpatient PFTs recommended symptomatic support AUD with acute alcohol intoxication with concern for impending withdrawal phenobarbital taper thiamine, folic acid Recovery Team consult polysubstance abuse [cocaine + fentanyl] tox screen pending continue methadone Recovery Team consult noted apnea in ED o2 to keep sats above 90% overnight oximetry test elevated LFTs likely due to etoh use trend levels tobacco abuse Smoking cessation advised NRT Morbid obesity BMI 39.1 VTE ppx heparin ongoing need for stay in the hospital for management of wound infection/cellulitis -need iv antibiotocs , in addition patient also has alcohol withdrawal-requiring phenobarb protocol, CIWA scale, COPD exacerbation-nebs and steroids. Quality Stroke Does the patient have a stroke diagnosis?: No VTE Prior VTE?: No VTE Risk Level:: Medical - moderate - high VTE Device Contraindication: Treatment Not Indicated VTE Drug Contraindication: N/A - Med Ordered
[2024-12-21 09:12] LABS: Alanine Aminotransferase 87 U/L (0-40); Albumin Level 2.9 g/dL (3.5-5.0); Alkaline Phosphatase 151 U/L (39-117); Anion Gap 15 (12-20); Aspartate Amino Transferase 117 U/L (5-37); Blood Urea Nitrogen 17 mg/dL (9-16); Calcium 8.4 mg/dL (8.4-10.2); Carbon Dioxide 24 mmol/L (22-29); Chloride 102 mmol/L (96-108); Creatinine Clr Calc Pharmacy 130.9; Estimated Glomerular Filt Rate > 60; Potassium 4.9 mmol/L (3.3-5.1); Sodium 136 mmol/L (135-145); Total Protein 7.7 g/dL (6.5-8.0)
[2024-12-21] MEDS: Thiamine HCL 100 MG in 0.9 % Sodium Chloride 100 ML 202 MG IV (09:35)
[2024-12-21 11:24] LABS: IDNOW Serial# 08D9AD1C; Strep A Nucleic Acid Negative (Negative)
--- NOTE | 2024-12-21 14:45 | MHC.RECOVRN ---
T/W went to see pt. in - to provide support and education. Pt in bed resting. Awake and alert but fatigued. Pt presents as comfortable and offers no reports of concerns/issues. Pt continues on methadone as ordered and is receiving pheno taper as ordered. Pt also has comfort meds available for pain which he has not used since yesterday. Education provided on the bodies reaction when stopping smoking r/t chest mucous. Pt denies any needs or concerns. ACS available as needed
--- NOTE | 2024-12-21 15:11 | HE.PHANOTE ---
re: vanco Trough returned at 18.8. Indication is skin. Decreasing dose to 1000 mg Q8H with predicted AUC 415 and trough 12.3 to ensure safety. Next trough due 12/22 @0600.
--- NOTE | 2024-12-21 16:45 | HE.PHANOTE ---
re: vanco Trough returned at 18.8. Indication is skin. Decreasing dose to 1000 mg Q8H with predicted AUC 415 and trough 12.3 to ensure safety. Holding dose for 3 hours to allow patient to clear. Next trough due 12/22 @0900.
[2024-12-21] MEDS: guaiFENesin DM 100/10/5 ML 5 ML SYRUP PO ×2 (16:52→23:21)
[2024-12-21] MEDS: Sodium Chloride 0.65 % Nasal 44 ML SPRBTL 1 SPRAY NOSTRIL-B (17:00)
[2024-12-22] VITALS (10 sets, daily range): BP systolic 145–172; BP diastolic 73–94; PULSE 68–82; RESP 17–20; TEMP 36.4–37.6; O2SAT 92–98
[2024-12-22] MEDS: Albuterol/Iprat 2.5/0.5MG 3 ML AMPUL.NEB INHALE ×4 (08:05→19:45)
[2024-12-22] MEDS: Nicotine 14 MG PATCH.TD24 TRANSDERMA (08:28)
[2024-12-22] MEDS: Aspirin Enteric Coated 81 MG TABLET.DR PO (08:28)
[2024-12-22] MEDS: 0.9 % Sodium Chloride Flush 3 ML SYRINGE IVFLUSH ×3 (08:29→20:11)
[2024-12-22] MEDS: methADONE HCl 20 MG/2 ML ORAL.CONC 95 MG PO (08:52)
[2024-12-22] MEDS: Thiamine HCL 100 MG in 0.9 % Sodium Chloride 100 ML 202 MG IV (08:52)
--- NOTE | 2024-12-22 08:58 | P.PNIM_ITS ---
Progress Note: A&P (1) Cellulitis: Status: Acute Plan 59yo M with polysubstance abuse on methadone, AUD, tobacco abuse admitted for purulent LLE wound infection/cellulitis at site of prior skin graft wound infection/cellulitis previous MRI in May negative for osteo however CRP and ESR elevated continue vanco + zosyn follow blood cultures Wound Care consult ID consult-likely cellulitis -continue iv antibiotics L groin lymph node, increased since 09/20/23 DVT study again showing increased lymph nodes with concern for neoplasm MRI pelvis may - showing nonspecific lymphadenopathy, no enhancing URI/pharyngitis with copd execerebation: check RPP-negtaive rapid strep negative , throat cultures -pending ,strep aso elevated (ordered by chance/error for throat pain instead of rapid strep test). likely underlying COPD - outpatient PFTs recommended symptomatic support AUD with acute alcohol intoxication with concern for impending withdrawal phenobarbital taper thiamine, folic acid Recovery Team consult polysubstance abuse [cocaine + fentanyl] tox screen pending continue methadone Recovery Team consult noted apnea in ED o2 to keep sats above 90% overnight oximetry test elevated LFTs likely due to etoh use trend levels tobacco abuse Smoking cessation advised NRT Morbid obesity BMI 39.1 VTE ppx heparin ongoing need for stay in the hospital for management of wound infection/cellulitis -need iv antibiotocs , in addition patient also has alcohol withdrawal-requiring phenobarb protocol, CIWA scale, COPD exacerbation-nebs and steroids. Subjective Subjective Date of Service: 12/22/24 Interval History: leg cellulitis Review of Systems has throat pain denies new symptoms Review of Systems: Yes all other systems are reviewed and are negative Physical Exam 2 Exam: Exam: Appearance: Alert.? Oriented X3.? tramlous but improvin cvs: rrr, [id number] . res: clear to auscultation ,no rhonchii or wheezing abd: no rebound or guarding ,nt, bs present. ext pulses present , no cyanosis . neuro: axo3 , nonfocal. Vital Signs: Vital Signs: Last Vital Signs Temp 98.2 F 12/22/24 07:48 Pulse 81 12/22/24 08:06 Resp 17 12/22/24 08:06 BP 172/94 H 12/22/24 07:48 Pulse Ox 95 12/22/24 07:48 O2 Del Method Room Air 12/22/24 07:48 O2 Flow Rate 2 12/21/24 19:02 Oxygen Flow Rate 2 12/19/24 21:20 BMI result Body Mass Index 35.6 Objective Data Current Medications Acetaminophen (Acetaminophen 325 Mg Tablet) 650 mg PO Q6H PRN PRN Reason: Pain, Mild 1-3,fever,headache Albuterol Sulfate (Albuterol Sulfate (0.083%) 2.5 Mg/3 Ml Vial.Neb) 2.5 mg INHALE Q2H PRN PRN Reason: Shortness of Breath/Wheezing Last Admin: 12/20/24 04:03 Dose: 2.5 mg Albuterol/Ipratropium (Albuterol/Iprat 2.5/0.5mg 3 Ml Ampul.Neb) 3 ml INHALE RQ4H WHILE AWAKE [facility] Last Admin: 12/22/24 08:05 Dose: 3 ml Aspirin (Aspirin Enteric Coated 81 Mg Tablet.Dr) 81 mg PO DAILY [facility] Last Admin: 12/22/24 08:28 Dose: 81 mg Benzocaine (Throat Lozenge, Medicated Lozenge) 1 lozenge MUCOUS MEM Q2H PRN PRN Reason: Sore Throat Last Admin: 12/19/24 16:30 Dose: 1 lozenge Calcium Carbonate (Calcium Carbonate 750 Mg Tab.Chew) 750 mg PO Q4H PRN PRN Reason: Heartburn Clonidine HCl (Clonidine Hcl 0.1 Mg Tablet) 0.1 mg PO BID [facility]; Protocol Last Admin: 12/22/24 08:28 Dose: 0.1 mg Folic Acid (Folic Acid 1 Mg Tablet) 1 mg PO DAILY [facility] Last Admin: 12/22/24 08:28 Dose: 1 mg Gabapentin (Gabapentin 100 Mg Capsule) 100 mg PO TID PRN PRN Reason: anxiety/restlessness Last Admin: 12/19/24 16:30 Dose: 100 mg Guaifenesin/Dextromethorphan (Guaifenesin Dm 100/10/5 Ml 5 Ml Syrup) 5 ml PO Q6H PRN PRN Reason: Cough Last Admin: 12/21/24 23:21 Dose: 5 ml Heparin Sodium (Porcine) (Heparin Sodium,Porcine 5,000 Unit/Ml Vial) 5,000 unit SUBCUT Q12H [facility] Last Admin: 12/22/24 08:30 Dose: 5,000 unit Piperacillin Sod/Tazobactam (Sod 4.5 gm/ Sodium Chloride) 100 mls @ 200 mls/hr IV Q8H [facility] Last Admin: 12/22/24 08:27 Dose: 200 mls/hr Thiamine HCl 100 mg/ Sodium (Chloride) 101 mls @ 202 mls/hr IV DAILY [facility] Last Infusion: 12/21/24 10:44 Dose: Infused Doxycycline Hyclate 100 mg/ (Sodium Chloride) 250 mls @ 166.67 mls/hr IV Q12H [facility] Last Infusion: 12/21/24 22:44 Dose: Infused Vancomycin HCl 1,000 mg/ (Sodium Chloride) 270 mls @ 270 mls/hr IV Q8H [facility] Last Infusion: 12/22/24 03:15 Dose: Infused Magnesium Hydroxide (Milk Of Magnesia 30 Ml Oral.Susp) 30 ml PO DAILY PRN PRN Reason: Constipation Melatonin (Melatonin 3 Mg Tablet) 6 mg PO BEDTIME PRN PRN Reason: Insomnia Last Admin: 12/21/24 19:54 Dose: 6 mg Methadone HCl (Methadone Hcl 20 Mg/2 Ml Oral.Conc) 95 mg PO DAILY [facility] Last Admin: 12/21/24 08:07 Dose: 95 mg Mirtazapine (Mirtazapine 15 Mg Tablet) 15 mg PO BEDTIME [facility] Last Admin: 12/21/24 19:54 Dose: 15 mg Nicotine (Nicotine 14 Mg Patch.Td24) 14 mg TRANSDERMA DAILY [facility] Last Admin: 12/22/24 08:28 Dose: 14 mg Pharmacy Consult (Consult Rx Etoh Phenob Im/Po) 1 each MISCELLANE ONCE PRN; Protocol PRN Reason: Consult order Pharmacy Consult (Consult Rx Vancomycin Dosing) 1 each MISCELLANE DAILY PRN PRN Reason: Consult order Phenobarbital (Phenobarbital 30 Mg Tablet) 30 mg PO BID [facility]; Protocol Stop: 12/23/24 09:01 Last Admin: 12/22/24 08:28 Dose: 30 mg Phenobarbital (Phenobarbital 30 Mg Tablet) 30 mg PO DAILY [facility]; Protocol Stop: 12/25/24 09:01 Prednisone (Prednisone 20 Mg Tablet) 40 mg PO DAILY [facility] Last Admin: 12/22/24 08:28 Dose: 40 mg Sodium Chloride (0.9 % Sodium Chloride Flush 3 Ml Syringe) 3 ml IVFLUSH QSHIFT [facility] Last Admin: 12/22/24 08:29 Dose: 3 ml Sodium Chloride (Sodium Chloride 0.65 % Nasal 44 Ml Sprbtl) 1 spray NOSTRIL-B Q1H PRN PRN Reason: Dry Nasal Passages Last Admin: 12/21/24 17:00 Dose: 1 spray Tramadol HCl (Tramadol Hcl 50 Mg Tablet) 50 mg PO Q4H PRN PRN Reason: Pain, Severe (Pain Scale 7-10) Last Admin: 12/20/24 16:49 Dose: 50 mg Labs 12/20/24 06:50 12/22/24 09:29 Labs: Laboratory Results - last 24 hr 12/21/24 12/21/24 12/22/24 09:45 14:15 06:04 Random Vancomycin 18.8 17.2 S. pyogenes GrpA OMA Negative Microbiology Microbiology Results: Microbiology 12/20/24 18:20 Throat Throat Culture - Preliminary Culture in progress. 12/19/24 07:43 Blood - Venous Blood Culture - Preliminary No growth after 48 hours. 12/19/24 07:48 Blood - Venous Blood Culture - Preliminary No growth after 48 hours. Quality Stroke Does the patient have a stroke diagnosis?: No VTE Prior VTE?: No VTE Risk Level:: Medical - moderate - high VTE Device Contraindication: Treatment Not Indicated VTE Drug Contraindication: N/A - Med Ordered
--- NOTE | 2024-12-22 09:01 | HE.PHANOTE ---
RE: VANCO Trough returned @17.2 @0600. Per insight predictins, trough should be around 13 mg/L at this time. Will continue 1000 mg Q8H with predicted AUC 419 and trough 12.6. Renal function is stable. Next trough 3 @0900. Will continue to monitor.
[2024-12-22 10:24] LABS: Creatinine Clr Calc Pharmacy 144.4; Estimated Glomerular Filt Rate > 60
[2024-12-22 10:53] LABS: Anion Gap 13 (12-20); Blood Urea Nitrogen 16 mg/dL (9-16); Calcium 8.2 mg/dL (8.4-10.2); Carbon Dioxide 28 mmol/L (22-29); Chloride 101 mmol/L (96-108); Creatinine Clr Calc Pharmacy 146.5; Estimated Glomerular Filt Rate > 60; Potassium 3.7 mmol/L (3.3-5.1); Sodium 138 mmol/L (135-145)
--- NOTE | 2024-12-22 15:40 | MHC.RECOVRN ---
T/W met with pt. in [id number] to offer education and support. Pt is declining BARON and referral to clinic for BARON as I have not been drinking that long Pt concerned about his sleeping and says that this is why he drinks. Encouraged him to discuss further with OTP provider to see if they can assist. Also sent message to Marivel Walker NP for any suggestions/support. Pt does not have PCP/dentist and has very complex medical care therefore I asked JAIME Landaverde if she could refer pt. to Nurse Navigator. She will F/U. Pt denies any other questions/concerns. ACS available PRN
[2024-12-23 03:42] VITALS: BP 157/69; PULSE 78; RESP 20; TEMP 37; O2SAT 95
[2024-12-23] MEDS: Aspirin Enteric Coated 81 MG TABLET.DR PO (07:58)
[2024-12-23] MEDS: Nicotine 14 MG PATCH.TD24 TRANSDERMA (07:59)
[2024-12-23 08:00] VITALS: BP 191/88; PULSE 77; RESP 16; TEMP 36.4; O2SAT 94
[2024-12-23] MEDS: Thiamine HCL 100 MG in 0.9 % Sodium Chloride 100 ML 202 MG IV (08:00)
[2024-12-23] MEDS: methADONE HCl 20 MG/2 ML ORAL.CONC 95 MG PO (08:03)
[2024-12-23] MEDS: 0.9 % Sodium Chloride Flush 3 ML SYRINGE IVFLUSH (08:33)
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
[2024-12-23 10:28] LABS: Creatinine Clr Calc Pharmacy 146.5; Estimated Glomerular Filt Rate > 60
--- NOTE | 2024-12-23 10:40 | HE.PHANOTE ---
Re: [place] Pt's renal function is improving. Trough returned at 14.1, pt is therapeutic. Continue current dose of 1000mg q8h with predicted AUC 423, predicted trough 13.1. Next trough 12/24 @ 0900.
[2024-12-23 11:34] VITALS: PULSE 78; RESP 19; O2SAT 95
[2024-12-23] MEDS: Albuterol/Iprat 2.5/0.5MG 3 ML AMPUL.NEB INHALE (11:34)
[2024-12-23 11:47] VITALS: BP 160/89; PULSE 87; RESP 16; TEMP 36.7; O2SAT 93
--- NOTE | 2024-12-23 13:00 | HO.PM.IMPN ---
Subjective Subjective Date of Service: 12/23/24 Physical Exam Vital Signs: Vital Signs: Last Vital Signs Temp 98.0 F 12/23/24 11:47 Pulse 87 12/23/24 11:47 Resp 16 12/23/24 11:47 BP 160/89 H 12/23/24 11:47 Pulse Ox 93 12/23/24 11:47 O2 Del Method Room Air 12/23/24 11:47 O2 Flow Rate 96 12/22/24 15:14 Oxygen Flow Rate 2 12/19/24 21:20 BMI result Body Mass Index 35.6 Objective Data Active Medications Acetaminophen (Acetaminophen 325 Mg Tablet) 650 mg PO Q6H PRN PRN Reason: Pain, Mild 1-3,fever,headache Albuterol Sulfate (Albuterol Sulfate (0.083%) 2.5 Mg/3 Ml Vial.Neb) 2.5 mg INHALE Q2H PRN PRN Reason: Shortness of Breath/Wheezing Last Admin: 12/20/24 04:03 Dose: 2.5 mg Documented By: AMANUEL Albuterol/Ipratropium (Albuterol/Iprat 2.5/0.5mg 3 Ml Ampul.Neb) 3 ml INHALE RQ4H WHILE AWAKE [facility] Last Admin: 12/23/24 11:34 Dose: 3 ml Documented By: PEDRO Amlodipine Besylate (Amlodipine Besylate 5 Mg Tablet) 5 mg PO DAILY [facility]; Protocol Last Admin: 12/23/24 07:59 Dose: 5 mg Documented By: GERARDO Amoxicillin/Clavulanate Potassium (Amoxicillin/Potassium Clav 875 Mg Tablet) 875 mg PO Q12H [facility] Aspirin (Aspirin Enteric Coated 81 Mg Tablet.) 81 mg PO DAILY [facility] Last Admin: 12/23/24 07:58 Dose: 81 mg Documented By: GERARDO Benzocaine (Throat Lozenge, Medicated Lozenge) 1 lozenge MUCOUS MEM Q2H PRN PRN Reason: Sore Throat Last Admin: 12/19/24 16:30 Dose: 1 lozenge Calcium Carbonate (Calcium Carbonate 750 Mg Tab.Chew) 750 mg PO Q4H PRN PRN Reason: Heartburn Clonidine HCl (Clonidine Hcl 0.1 Mg Tablet) 0.1 mg PO BID [facility]; Protocol Last Admin: 12/23/24 07:58 Dose: 0.1 mg Documented By: GERARDO Doxycycline Monohydrate (Doxycycline Monohydrate 100 Mg Capsule) 100 mg PO Q12H [facility] Folic Acid (Folic Acid 1 Mg Tablet) 1 mg PO DAILY [facility] Last Admin: 12/23/24 08:04 Dose: 1 mg Documented By: GERARDO Gabapentin (Gabapentin 100 Mg Capsule) 100 mg PO TID PRN PRN Reason: anxiety/restlessness Last Admin: 12/19/24 16:30 Dose: 100 mg Documented By: MARIELENA Guaifenesin/Dextromethorphan (Guaifenesin Dm 100/10/5 Ml 5 Ml Syrup) 5 ml PO Q6H PRN PRN Reason: Cough Last Admin: 12/21/24 23:21 Dose: 5 ml Documented By: ALONSO Heparin Sodium (Porcine) (Heparin Sodium,Porcine 5,000 Unit/Ml Vial) 5,000 unit SUBCUT Q12H [facility] Last Admin: 12/23/24 07:59 Dose: 5,000 unit Documented By: GERARDO Thiamine HCl 100 mg/ Sodium (Chloride) 101 mls @ 202 mls/hr IV DAILY [facility] Last Infusion: 12/23/24 08:36 Dose: Infused Documented By: GERARDO Doxycycline Hyclate 100 mg/ (Sodium Chloride) 250 mls @ 166.67 mls/hr IV Q12H [facility] Last Infusion: 12/23/24 10:09 Dose: Infused Documented By: GERARDO Magnesium Hydroxide (Milk Of Magnesia 30 Ml Oral.Susp) 30 ml PO DAILY PRN PRN Reason: Constipation Melatonin (Melatonin 3 Mg Tablet) 6 mg PO BEDTIME PRN PRN Reason: Insomnia Last Admin: 12/22/24 20:06 Dose: 6 mg Documented By: RAMESH Methadone HCl (Methadone Hcl 20 Mg/2 Ml Oral.Conc) 95 mg PO DAILY [facility] Last Admin: 12/23/24 08:03 Dose: 95 mg Documented By: GERARDO Co-signed By: OTONIEL Mirtazapine (Mirtazapine 15 Mg Tablet) 15 mg PO BEDTIME [facility] Last Admin: 12/22/24 20:06 Dose: 15 mg Documented By: RAMESH Nicotine (Nicotine 14 Mg Patch.Td24) 14 mg TRANSDERMA DAILY [facility] Last Admin: 12/23/24 07:59 Dose: 14 mg Documented By: GERARDO Pharmacy Consult (Consult Rx Etoh Phenob Im/Po) 1 each MISCELLANE ONCE PRN; Protocol PRN Reason: Consult order Phenobarbital (Phenobarbital 30 Mg Tablet) 30 mg PO DAILY [facility]; Protocol Stop: 12/25/24 09:01 Prednisone (Prednisone 20 Mg Tablet) 40 mg PO DAILY [facility] Last Admin: 12/23/24 07:58 Dose: 40 mg Documented By: GERARDO Sodium Chloride (0.9 % Sodium Chloride Flush 3 Ml Syringe) 3 ml IVFLUSH QSHIFT [facility] Last Admin: 12/23/24 08:33 Dose: 3 ml Documented By: GERARDO Sodium Chloride (Sodium Chloride 0.65 % Nasal 44 Ml Sprbtl) 1 spray NOSTRIL-B Q1H PRN PRN Reason: Dry Nasal Passages Last Admin: 12/21/24 17:00 Dose: 1 spray Documented By: SOCRATES Tramadol HCl (Tramadol Hcl 50 Mg Tablet) 50 mg PO Q4H PRN PRN Reason: Pain, Severe (Pain Scale 7-10) Last Admin: 12/20/24 16:49 Dose: 50 mg Documented By: BROB Labs 12/20/24 06:50 12/23/24 09:18 Labs: Laboratory Results - last 24 hr 12/23/24 09:18 Estim Creat Clear Calc 146.5 Estimated GFR > 60 Vancomycin Trough 14.1 Microbiology Microbiology Results: Microbiology 12/20/24 18:20 Throat Culture - Final Throat No Group A Beta-hemolytic Streptococci isolated. Quality Stroke Does the patient have a stroke diagnosis?: No VTE Prior VTE?: No VTE Risk Level:: Medical - moderate - high VTE Device Contraindication: Treatment Not Indicated VTE Drug Contraindication: N/A - Med Ordered
--- NOTE | 2024-12-23 14:14 | MHC.CM.PN ---
CM met with pt and MD, gave pt. phone #s and addresses for [facility] and [facility] wound clinic for him to make follow up appts. Pt. said he will do dressing changes on his wound himself, wound nurse to show him how and give him supplies. Pt. will DC today, he will go home via Lyft.
--- NOTE | 2024-12-23 14:27 | HO.WOUND ---
Wound Consult: Follow up 59yr old male admitted to [facility] on 12/19/24 - See progress notes and H&P for detailed history. Wound consult follow up for left leg, prior to d/c. Arrival to bedside patient was dressed in street clothes and packing his belongings. I requested wound assessment and dressing change prior to d/c, he politely refused and informed me staff had changed the dressing with in the last hour. He reports he is comfortable with performing the dressing changes himself. We discussed the topical recommendations at this time - supplies left and brought at bedside for d/c. He reports understanding. He was not agreeable to outpt wound clinic followup. Attempted to educate patient on the benefits of out pt follow up, he reports understanding but was not agreeable o follow up at this time. Details from prior assessment: Left Lower Leg 12/20/24 Left Lower Leg 12/20/24 Left leg 12/19/26 Etiology: Venous stasis ulcer Measurements: 23cm x 15cm x 0.3cm Wound Bed: Central wound with full thickness tissue loss adherent yellow slough above deepest part of wound soft fluctuance noted - surrounding wound with red pink partial thickness tissue loss dry red/yellow Drainage / Odor: drainage noted on hospital pants patient had taken off dressing unsure of why serosanguineous, Mild odor noted Edges: ? irregular Jena wound: ? No Induration noted, small area of swelling and fluctuance noted superior to wound on anterior aspect, redness and swelling noted to leg. Pain: none Goals of Treatment: ?Medihoney and xeroform - followed by jazmyne for antimicrobial and drainage absorption Recommendations: Left leg: cleanse with normal saline, apply Medihoney to deepest part of wound bed followed by [employer] [employer], remained of wound bed with xeroform followed by ABD pad, wrap with kerlix, change daily and PRN. Recommend follow up out patient Wound Clinic at [address] [place] [address], [place] [address] and to call for an appointment at time of discharge. [phone].? Re-consult wound care Nurse for wound deterioration or wound changes.
--- NOTE | 2024-12-23 15:18 | PM.DS ---
DS: Providers Provider Date of Service: 12/23/24 Date of admission: 12/19/24 09:25 Date of discharge: 12/23/24 Primary care physician: None Physician Consults: 12/19/24 09:13 Consult to Wound Care Routine Consulting Provider: [facility] Wound Care Management Reason for consultation: LLE wound/cellulitis; h/o wound grafting 12/19/24 09:15 Addiction Medicine Provider Routine Consulting Provider: Addiction Covering Reason for consultation: etoh/cocaine use Has provider been notified: No 12/19/24 13:04 Consult to Infectious Diseases Routine Consulting Provider: [facility] [place] Infectious Disease Center Reason for consultation: left leg wound ?osteo Has provider been notified: No 12/23/24 07:37 Consult to General Surgery Routine Consulting Provider: [facility] [place] General Surgeons Reason for consultation: left leg wound and cellulitis ,failed graft Has provider been notified: No DS: Diagnosis Discharge Diagnosis (1) Wound infection: Status: Acute (2) Cellulitis: Status: Acute DS: Summary Hospital Course Hospital Course: hpi:59-year-old male with a history of alcohol use disorder, cocaine abuse who presents to the emergency department with multiple complaints. Patient reports 3 weeks of shortness of breath with dry cough, associated sore throat for the past 2 weeks. He says ?everyone has been sick, including his 2 roommates. He denies any fever or chills. He was last admitted in May of 2024 for left lower extremity wound infection, at that time MRI was negative for osteomyelitis, he was discharged home with oral antibiotics. He states that he was never able to get these antibiotics. He has not seen any doctor since discharge from the hospital. He reports increased redness and swelling and pain of his left leg. He reports lower extremity swelling. He has been drinking from the time he wakes up to the time he goes to bed, typically drinks [employer]ru, an average of 6 per day in addition to 'whatever hard alchol he can get his hands on. He smokes tobacco as well as crack cocaine. He denies heroin use. Today in the emergency department his ESR was elevated at 77 and CRP was up to 7.88. ETOH level was 187, last drink prior to arrival. LFTs were elvevated. CXR showed acute on chronic airspace disease with superimposed mild interstitial lung edema not excluded. X-ray of the tibia/fibula showing stable cortical thickening involving the mid shafts of the tibia and fibula, diffuse soft tissue swelling. DVT study was negative for acute DVT but showing left inguinal and popliteal lymphadenopathy suspicious for neoplasm. Patient was treated with broad-spectrum antibiotics, breathing treatments, IV steroids and was started on phenobarbital protocol. Hospital course:Patient was admitted for cellulitis: Found to have elevated esr/crp,xary leg:Diffuse soft tissue swelling. Stable cortical thickening involving the mid shafts of the tibia and fibula. No plain film evidence of osteomyelitis, in addition ultrasound of extremity also was done which is negative for any abscess.-started on IV antibiotics, blood cultures sent, subsequently seen by ID and surgery, wound care. Surgery also try I and D but no fluid came out. With the above management patient seems to be improved significantly-cellulitis seems to be improved. Patient was seen by infectious disease -labs and imaging reviewed-recommended to switch to p.o. antibiotics- Patient was going home with p.o. antibiotics doxycycline and Augmentin for 10 days. Patient was strongly advised for wound care and dressing change. He says he used able to do on his own. L groin lymph node, increased since 09/20/23 DVT study again showing increased lymph nodes with concern for neoplasm MRI pelvis may - showing nonspecific lymphadenopathy, no enhancing Seen by surgery/; Again noted incidentally are left inguinal and popliteal lymphadenopathy. These have enlarged from previous imaging during 06/14 visit. May be secondary to the infection but would recommend follow up and US guided biopsy at an outpatient. URI/pharyngitis with copd execerebation: Respiratory viral panel negative. Rapid strep and throat culture negative. Patient was treated with nebs, steroids, antibiotics as above. Seem improved. Alcohol withdrawal: Patient was strongly advised to abstain from alcohol. LFT mild elevated due to alcohol levels-similar, monitor LFT outpatient. plan: Strongly advised to abstain from alcohol. Monitor LFT outpatient. Patient is to follow up follow up outpatient with wound care and surgery -for possible wound care and as well as left groin lymph node increased(gain noted incidentally are left inguinal and popliteal lymphadenopathy. These have enlarged from previous imaging during 06/14 visit. May be secondary to the infection but would recommend follow up and US guided biopsy at an outpatient. ) Complete p.o. doxycycline 100 mg p.o. b.i.d., Augmentin 875 mg p.o. b.i.d. for 10 more days. For COPD-added albuterol, Breo, complete prednisone as prescribed. Patient was strongly advised for abstain from alcohol, good wound care, need to make appointment with PCP [facility] as well as wound care follow-up/surgery follow up. Importance of above management discussed with him in detail with child protective services social worker present. Above management discussed with the patient detail length he understand and in agreement with the above plan, time spent 50 minute. Time Attestation Total time managing care of this patient today: 50 mintues. Discharge Coordination Time (in mins): 50 minutes Quality: Safe Use of Opioids Does Pt have an Active Cancer Diagnosis on the Problem List?: No Quality: Stroke Does the patient have a stroke diagnosis?: No Physical Exam Exam: Exam: Appearance: Alert.? Oriented X3.? tramlous but improvin cvs: rrr, [id number] . res: clear to auscultation ,no rhonchii or wheezing abd: no rebound or guarding ,nt, bs present. ext pulses present , no cyanosis . skin-LLE- large ulceration of anterior lower aspect, smaller open areas surrounding; all with good granulation tissue without evidence of necrosis, mild erythema of foot neuro: axo3 , nonfocal. Vital Signs: Vital Signs: Last Vital Signs Temp 98.0 F 12/23/24 11:47 Pulse 87 12/23/24 11:47 Resp 16 12/23/24 11:47 BP 160/89 H 12/23/24 11:47 Pulse Ox 93 12/23/24 11:47 O2 Del Method Room Air 12/23/24 11:47 O2 Flow Rate 96 12/22/24 15:14 Oxygen Flow Rate 2 12/19/24 21:20 BMI result Body Mass Index 35.6 DS: Data Data Completed and Pending Completed studies during hospitalization [Text1]: Procedures Detoxification Services for Substance Abuse Treatment (06/04/24) Labs on day of discharge: Laboratory Results - last 24 hr 12/23/24 09:18 Creatinine 0.67 Estim Creat Clear Calc 146.5 Estimated GFR > 60 Vancomycin Trough 14.1 Preliminary micro results at discharge 12/19/24 07:43 Blood Culture - Preliminary Blood - Venous No growth after 48 hours. 12/19/24 07:48 Blood Culture - Preliminary Blood - Venous No growth after 48 hours. Imaging Chest x-ray: Radiologist's impression: ITS Impressions Venous Duplex 12/19/24 08:16 IMPRESSION: 1. No evidence of acute DVT in the left lower extremity. 2. Left inguinal and popliteal lymphadenopathy. Findings are suspicious for neoplasm. Ultrasound-guided fine-needle aspiration to be considered. Tibia/Fibula X-Ray 12/19/24 08:30 IMPRESSION: Diffuse soft tissue swelling. Stable cortical thickening involving the mid shafts of the tibia and fibula. No plain film evidence of osteomyelitis. If this remains a clinical concern, three-phase bone scan or MRI could be performed. Chest X-Ray 12/19/24 08:34 IMPRESSION: Acute on chronic airspace disease. Superimposed mild interstitial lung edema cannot be excluded. Extremity Ultrasound 12/20/24 10:58 IMPRESSION: Left anterior tibial skin open wound. No underlying abscess, fluid collection or hypervascularity. Discharge Plan Discharge Anticipated Discharge Date/Time: 12/23/24 14:53 Patient Disposition: Home, Self-Care Discharge Diagnosis: leg wound /cellulitis Referrals: [facility] Wound Care Management [Provider Group] - 1 Week Coretta Singh PA-C [Physician Shift Mechanic, General Surgery] - 1 Week Ashleigh Madera MD [Physician, Medical] - 1 Week [facility] [Primary Care Provider, Medical] - 1 Week Discharge Medications: New nicotine 14 mg/24 hr Patch 24 Hour 14 mg transdermal DAILY Qty: 7 0RF prednisone 20 mg Tablet 40 mg PO DAILY Qty: 2 0RF dextromethorphan-guaifenesin 10-100 mg/5 mL Syrup 10 ml PO Q6H PRN (Reason: Cough) Qty: 200 0RF amlodipine 5 mg Tablet 10 mg PO DAILY Qty: 180 0RF Protocol: Hold for SBP< HOLD for SBP < : 90 doxycycline monohydrate 100 mg Capsule 100 mg PO BID Qty: 19 0RF folic acid 1 mg Tablet 1 mg PO DAILY Qty: 90 0RF amoxicillin-pot clavulanate 875-125 mg Tablet 1 tab PO Q12H Qty: 19 0RF fluticasone furoate-vilanterol [Breo Ellipta] 100-25 mcg/dose Blister With Device 1 inh inhalation RDAILY Qty: 2 0RF Sore Throat (benzocaine-menth) 15-3.6 mg Lozenge 1 roger mucous membrane Q2H PRN (Reason: Sore Throat) Qty: 20 0RF thiamine HCl (vitamin B1) 100 mg capsule 100 mg PO DAILY Qty: 30 0RF Continued methadone [Methadone Intensol] 10 mg/mL Concentrate 95 mg PO DAILY Discharge Orders: Discharge Order (Routine); Ordered 12/23/24 Ordered By: Kevin Gutierrez Diet: Advance to usual diet Activity on Discharge: As tolerated Stand Alone Forms: Patient Portal Discharge page Print Language: Sinhala Activity Restrictions/Additional Instructions: Recommendations: Left leg: cleanse with normal saline, apply Medihoney to deepest part of wound bed followed by [employer], remained of wound bed with xeroform followed by ABD pad, wrap with kerlix, change every other day and as needed for excessive drainage. Recommend follow up out patient Wound Clinic at [address] [place] [address] and to call for an appointment at time of discharge. [phone].? Care Plan Goals: as below. Health Concerns: Strongly advised to abstain from alcohol. Monitor LFT outpatient.] HTN: added amlodipine 10 mg daily. Patient is to follow up follow up outpatient with wound care and surgery -for possible wound care and as well as left groin lymph node increased(gain noted incidentally are left inguinal and popliteal lymphadenopathy. These have enlarged from previous imaging during 06/14 visit. May be secondary to the infection but would recommend follow up and US guided biopsy at an outpatient. ) Complete p.o. doxycycline 100 mg p.o. b.i.d., Augmentin 875 mg p.o. b.i.d. for 10 more days. For COPD-added albuterol, Breo, complete prednisone as prescribed. Patient was strongly advised for abstain from alcohol, good wound care, need to make appointment with PCP [facility] as well as wound care follow-up/surgery follow up. Importance of above management discussed with him in detail with child protective services social worker present. Wound care instructions as above. Plan of Treatment: As above. Assessment: As above. Discharge Date/Time: 12/23/24 16:06
== END 2024-12-23 16:06 | disposition home or self-care (01) | DRG 813 ==
LOC: HO.ED 09:25 → HO.EDOVER 09:37 → HO.IMC 17:59
PROVIDERS: Physician Assistant Medical; Admitting Provider Physician Assistant Medical; Emergency Provider Emergency Medicine; Visit Provider Internal Medicine
DX: T86.822 Skin graft (allograft) (autograft) infection (principal); J44.1 Chronic obstructive pulmonary disease with (acute) exacerbation; L03.116 Cellulitis of left lower limb; F17.210 Nicotine dependence, cigarettes, uncomplicated; F11.20 Opioid dependence, uncomplicated; F14.10 Cocaine abuse, uncomplicated; F10.229 Alcohol dependence with intoxication, unspecified; F10.239 Alcohol dependence with withdrawal, unspecified; Y90.6 Blood alcohol level of 120-199 mg/100 ml; R59.1 Generalized enlarged lymph nodes; J02.9 Acute pharyngitis, unspecified; F19.10 Other psychoactive substance abuse, uncomplicated; W19.XXXA Unspecified fall, initial encounter; E66.01 Morbid (severe) obesity due to excess calories; Z68.39 Body mass index [BMI] 39.0-39.9, adult; Z71.3 Dietary counseling and surveillance; Z71.6 Tobacco abuse counseling; Z79.899 Other long term (current) drug therapy
CPT/HCPCS: 36415; 71045; 73590; 76882; 80048; 80053; 80076; 80202; 80307; 82565; 82803; 82947; 83605; 83735; 83880; 85025; 85652; 86060; 86140; 87040; 87070; 87502; 87633; 87635; 87651; 93971; 94640; 97161; 99285; J1271; J1644; J2543; J2560; J2919; J3360; J3373; J3374; J3411; S9485

== ENCOUNTER → 2024-12-19 07:42 | Outpatient (BNV) | payer MEDICAID, SELFPAY | PROVIDERS: Visit Provider Radiology Diagnostic Radiology | DX: M79.662 Pain in left lower leg (principal); R22.42 Localized swelling, mass and lump, left lower limb; L53.9 Erythematous condition, unspecified; R06.02 Shortness of breath; L03.116 Cellulitis of left lower limb | CPT/HCPCS: 71045; 73590; 93971 ==

== ENCOUNTER 2024-12-19 09:25 | Outpatient (BNV) | payer MEDICAID, SELFPAY | END 2024-12-20 07:00 | PROVIDERS: Admitting Provider Physician Assistant Medical; Emergency Provider Emergency Medicine; Visit Provider Radiology Diagnostic Radiology | DX: L03.116 Cellulitis of left lower limb (principal); S81.802A Unspecified open wound, left lower leg, initial encounter | CPT/HCPCS: 76882 ==

== ENCOUNTER → 2024-12-19 09:25 | Outpatient (BNV) | payer MEDICAID, SELFPAY | PROVIDERS: Admitting Provider Physician Assistant Medical; Emergency Provider Emergency Medicine; Visit Provider Internal Medicine | DX: F10.930 Alcohol use, unspecified with withdrawal, uncomplicated (principal); L03.116 Cellulitis of left lower limb | CPT/HCPCS: 99222 ==

== ENCOUNTER → 2024-12-19 09:25 | Outpatient (BNV) | payer OTHER, SELFPAY | PROVIDERS: Admitting Provider Physician Assistant Medical; Emergency Provider Emergency Medicine; Visit Provider Nurse Practitioner Psychiatric/Mental Health | DX: F10.930 Alcohol use, unspecified with withdrawal, uncomplicated (principal); F11.90 Opioid use, unspecified, uncomplicated | CPT/HCPCS: 99232; 99233 ==

== ENCOUNTER → 2024-12-19 09:25 | Outpatient (BNV) | payer MEDICAID, SELFPAY | PROVIDERS: Admitting Provider Physician Assistant Medical; Emergency Provider Emergency Medicine; Visit Provider Internal Medicine | DX: F10.930 Alcohol use, unspecified with withdrawal, uncomplicated (principal); L03.116 Cellulitis of left lower limb | CPT/HCPCS: 99231; 99232; 99239; 99499 ==

== ENCOUNTER → 2024-12-19 09:25 | Outpatient (BNV) | payer MEDICAID, SELFPAY | PROVIDERS: Admitting Provider Physician Assistant Medical; Emergency Provider Emergency Medicine; Visit Provider Physician Assistant Surgical | DX: L08.9 Local infection of the skin and subcutaneous tissue, unspecified (principal); L03.116 Cellulitis of left lower limb; T14.8XXA Other injury of unspecified body region, initial encounter | CPT/HCPCS: 99222 ==